=== PATIENT | male | born 1960 | race Caucasian/White ===

== ENCOUNTER 2022-04-13 17:52 | Emergency (ER) | payer MEDICARE, SELFPAY ==
[2022-04-13 17:52] VITALS: BP 114/58; PULSE 60; RESP 18; TEMP 37.3; O2SAT 97; BMI 26.5
--- NOTE | 2022-04-13 18:17 | PC.NURSE ---
ROUNDED ON PT, NO NEEDS AT THIS TIME. UPDATED ON POC
[2022-04-13 18:22] LABS: Coronavirus 19, PCR Not Detected (NotDetected); Influenza B, PCR Not Detected (NotDetected)
[2022-04-13 18:30] VITALS: BP 105/63; PULSE 60; O2SAT 96
--- NOTE | 2022-04-13 19:21 | PC.NURSE ---
Called [facility] to have them send a ride for pt. They advised they had no one there but they would try to call [facility]. She advised she would call back.
--- NOTE | 2022-04-13 19:31 | HMH.EDGENADL ---
Discharge Plan Disposition Patient Disposition: Home, Self-Care Condition: Good Referrals Follow up/Referrals: Kar Feliciano MD [Primary Care Provider] - See instructions Activity Restrictions/Add. Instructions Additional Instructions/Restrictions: Please follow up with your primary care physician in 1-2 days for further management. You will be called with results from your viral panel. Regardless please take tylenol and ibuprofen for pain control and drink plenty of water. Return if difficulty breathing or any other concerns. Clinical Impressions Clinical Impression: Viral infection Instructions Patient Instructions: DI for Viral Upper Respiratory Infection -- Adult Print Language Print Language: Luxembourgish Discharge ED Provider: Marcia Schuster General Adult HPI General Chief complaint: Upper Respiratory Infection Stated complaint: flu like symptoms Time Seen by Provider: 04/13/22 18:00 Mode of Arrival: EMS Source of Information: Patient Limitations: No Limitations Description of Symptoms (Recalled from ER Triage Doc. by RN): PT REPORTS FEVER AND CONGESTION FOR 2-3 DAYS History of Present Illness HPI narrative: 61 yo male coming from [facility] with fever, non productive cough and congestion for 2-3 days. Outbreak of flu at this intermediate. Patient reports he is eating and drinking appropriately. No abdominal pain, urinary retention, dysuria, hematuria, bowel changes or other concerns. . MD complaint: cough, congestion Onset (ago): day(s) Related Data Allergies Allergy/AdvReac Type Severity Reaction Status Date / Time No Known Allergies Allergy Verified 04/13/22 17:58 [facility] Disclaimer: The information contained in this section may have been updated after the patient was seen, as this information can be updated by other users. Medical History (Updated 04/13/22 @ 19:19 by Marcia Schuster MD) Epilepsy Family History Other No significant family history Social History Smoking Status: Unknown if ever smoked alcohol intake: never current occupational status: retired Travel in the last 8 weeks: None ROS Obtained: Yes All systems reviewed & no additional complaints except as documented Physical Exam General General appearance: alert and in no apparent distress Head Head exam: atraumatic and normal inspection Eye Eye exam: Present normal appearance and EOMI ENT ENT exam: Present normal oropharynx and mucous membranes moist Neck Neck exam: Present normal inspection and full ROM Chest Chest inspection: Present normal inspection and symmetric chest wall rise Respiratory Respiratory exam: Present normal lung sounds bilaterally Cardiovascular Cardiovascular exam: Present regular rate and normal rhythm Abdominal Exam Abdominal exam: Present soft and normal bowel sounds Extremities Exam Extremities exam: Present normal inspection and full ROM Back Exam Back exam: Present normal inspection and full ROM Neurological Exam Neurological exam: Present alert and oriented X3 Skin Skin exam: Present warm and normal color Medical Decision Making Medical Records Medical records reviewed: Yes I reviewed the patient's medical records. David Inquiry Pt receiving controlled substance: No Vital Signs: 04/13/22 17:52 04/13/22 18:30 04/13/22 19:36 Temperature 99.1 F Temperature Source Oral Pulse Rate 60 Pulse Rate [Radial] 60 Respiratory Rate 18 Blood Pressure 105/63 L Blood Pressure [Right Arm] 114/58 L Blood Pressure Mean [Right Arm] 76 Blood Pressure Source [Right Arm] Automatic Cuff Blood Pressure Position [Right Arm] Sitting 02 Sat by Pulse Oximetry 97 96 Oxygen Delivery Method Room Air Room Air 04/13/22 19:36 Temperature 99.0 F Temperature Source Pulse Rate 62 Pulse Rate [Radial] Respiratory Rate 20 Blood Pressure 110/75 Blood Pressure [Right Arm]
[2022-04-13 19:36] VITALS: BP 110/75; PULSE 62; RESP 20; TEMP 37.2; O2SAT 98
[2022-04-13 19:51] LABS: Influenza A, PCR Detected (NotDetected)
== END 2022-04-13 19:45 | disposition home or self-care (01) ==
PROVIDERS: Emergency Provider Student in an Organized Health Care Education/Training Program; PCP Emergency Medicine
DX: R50.9 Fever, unspecified (principal); R09.89 Other specified symptoms and signs involving the circulatory and respiratory systems
CPT/HCPCS: 99282; C9803; U0003; U0005

== ENCOUNTER 2022-05-10 15:28 | Emergency (ER) | payer MEDICARE, SELFPAY ==
[2022-05-10 15:31] VITALS: BP 104/62; PULSE 73; RESP 18; TEMP 36.6; O2SAT 100; BMI 29.0
--- NOTE | 2022-05-10 15:39 | HMH.EDGENADL ---
Discharge Plan Disposition Patient Disposition: Home, Self-Care Condition: Good Activity Restrictions/Add. Instructions Additional Instructions/Restrictions: Follow-up with your primary care physician as soon as possible Clinical Impressions Clinical Impression: Anxiety Instructions Patient Instructions: DI for Anxiety -- Adult, Anxiety Disorders Discharge ED Provider: Tra Avina Adult HPI General Stated complaint: nervousness Time Seen by Provider: 05/10/22 15:33 History of Present Illness HPI narrative: 61-year-old male denies any significant past medical history, presents with feeling of anxiety, states it feels like tingling in his chest and down both arms. He states the symptoms of been ongoing for about 2 months ever since he moved into [facility]. He states has been worse over the past 2 to 3 days. He denies any known triggers for the symptoms. Denies shortness of breath, nausea, vomiting, diaphoresis. And has no known cardiac history. He is not attempted to take any medications for symptomatic relief thus far Related Data Allergies Allergy/AdvReac Type Severity Reaction Status Date / Time No Known Allergies Allergy Verified 04/13/22 17:58 [facility] Disclaimer: The information contained in this section may have been updated after the patient was seen, as this information can be updated by other users. Medical History Epilepsy Family History Other No significant family history Social History Smoking Status: Unknown if ever smoked alcohol intake: never current occupational status: retired Travel in the last 8 weeks: None ROS Obtained: Yes Systems reviewed as appropriate & no additional complaints except as documented Constitutional Constitutional: Reports system reviewed and no additional complaints, except as documented Eyes Eyes: Reports system reviewed and no additional complaints, except as documented ENT Ears, Nose, Mouth, and Throat: Reports system reviewed and no additional complaints, except as documented Cardiovascular Cardiovascular: Reports system reviewed and no additional complaints, except as documented Respiratory Respiratory: Reports system reviewed and no additional complaints, except as documented Gastrointestinal Gastrointestingal: Reports system reviewed and no additional complaints, except as documented Genitourinary Male Genitourinary: Reports system reviewed and no additional complaints, except as documented Musculoskeletal Musculoskeletal: Reports system reviewed and no additional complaints, except as documented Integumentary/Breasts Skin/Breast: Reports system reviewed and no additional complaints, except as documented Neurologic Neurologic: Reports system reviewed and no additional complaints, except as documented Endocrine Endocrine: Reports system reviewed and no additional complaints, except as documented Hematologic/Lymphatic Henatologic/Lymphatic: Reports system reviewed and no additional complaints, except as documented Allergic/Immunologic Allergic/Immunologic: Reports system reviewed and no additional complaints, except as documented Physical Exam General General appearance: alert and in no apparent distress Head Head exam: atraumatic, normocephalic and normal inspection Eye Eye exam: Present normal appearance, PERRL and EOMI ENT ENT exam: Present normal exam, normal oropharynx, mucous membranes moist, TM's normal bilaterally and normal external ear exam Neck Neck exam: Present normal inspection, full ROM and trachea midline; Absent meningismus or lymphadenopathy Chest Chest inspection: Present normal inspection and symmetric chest wall rise; Absent tenderness Respiratory Respiratory exam: Present normal lung sounds bilaterally; Absent respiratory distress Cardiovascular Cardiovasc
--- NOTE | 2022-05-10 15:53 | ECG_ITS ---
APPROVED REPORT Exam: Resting ECG HR:48 bpm ECG Measurements Heart Rate 48 AXES UT 155 P 75 QRSd 94 QRS -61 QT 434 T 53 QTc 399 Conclusion SINUS BRADYCARDIA LEFT AXIS DEVIATION [QRS AXIS < -30] LOW QRS VOLTAGE IN EXTREMITY LEADS [QRS DEFLECTION < 0.5 mV IN LIMB LEADS] PATTERN CONSISTENT WITH PULMONARY DISEASE ABNORMAL ECG UNCONFIRMED REPORT Electronically signed by : Devan Mathias MD 05/12/2022 20:04:04
--- NOTE | 2022-05-10 16:48 | PC.NURSE ---
called [facility] after 3 attempts to contact [facility], they are going to contact them for pt transport.
--- NOTE | 2022-05-10 17:23 | PC.NURSE ---
notified [facility] staff pt is ready for d/c
[2022-05-10 19:15] VITALS: BP 110/65; PULSE 70; RESP 18; TEMP 36.6; O2SAT 100
== END 2022-05-10 19:15 | disposition home or self-care (01) ==
PROVIDERS: Emergency Provider Emergency Medicine
DX: F41.9 Anxiety disorder, unspecified (principal); G40.909 Epilepsy, unspecified, not intractable, without status epilepticus; R45.0 Nervousness; F17.210 Nicotine dependence, cigarettes, uncomplicated
CPT/HCPCS: 93005; 99283; 99284

== ENCOUNTER 2023-06-05 09:26 | Emergency (ER) | payer MEDICARE, SELFPAY ==
[2023-06-05 09:26] VITALS: BP 133/98; PULSE 48; RESP 16; TEMP 36.7; O2SAT 97; BMI 25.1
[2023-06-05 09:40] VITALS: BP 97/59; PULSE 47; RESP 20; O2SAT 98
--- NOTE | 2023-06-05 09:43 | PC.NURSE ---
bed bug noted on pt shirt, sent to lab for confirmation, pt changed into a hospital gown, bedding changed, pt clothing placed in a separate bag from hospital linens and placed out side, EVS aware. Pt given fresh warm blankets and socks
--- NOTE | 2023-06-05 09:44 | ED_ITS ---
Discharge Plan Disposition Patient Disposition: Home, Self-Care Activity Restrictions/Add. Instructions Additional Instructions/Restrictions: Stitches will dissolve in 7 to 10 days. Call your family doctor to establish care for this visit to the emergency department and schedule follow-up within 48 hours to ensure improvement. If you have any worsening of your condition or any other concerning signs or symptoms, return to the emergency department or your primary care doctor for further evaluation. Clinical Impressions Clinical Impression: Fall Laceration of scalp Qualifiers: Encounter type: initial encounter Qualified Code(s): S01.01XA - Laceration without foreign body of scalp, initial encounter Discharge ED Provider: Gonzalez Narvaez General Adult HPI General Chief complaint: Fall Stated complaint: fall Time Seen by Provider: 06/05/23 09:34 Mode of Arrival: EMS Source of Information: Patient Limitations: No Limitations Description of Symptoms (Recalled from ER Triage Doc. by RN): EMS reports the patient slipped in spilled coffee and fell hitting his head. No LOC. Small laceration noted to the right side of head. Also complains of right shoulder pain. History of Present Illness HPI narrative: 62-year-old male history of anxiety fall. Patient states that he slipped in coffee just prior to arrival on hit his head on the floor. Floor is essentially negative tile. No loss of conscious. Patient has a small laceration on the right/back side of his head. No complaints of pain in his head, neck, or any neurologic complaints. Patient is not on anticoagulation Related Data Allergies Allergy/AdvReac Type Severity Reaction Status Date / Time No Known Allergies Allergy Verified 04/13/22 17:58 [facility] Disclaimer: The information contained in this section may have been updated after the patient was seen, as this information can be updated by other users. Medical History Epilepsy Family History Other No significant family history Social History Smoking Status: Unknown if ever smoked alcohol intake: never current occupational status: retired Travel in the last 8 weeks: None ROS Obtained: Yes All systems reviewed & no additional complaints except as documented Physical Exam General General appearance: alert and in no apparent distress Head Head exam: normocephalic and other (1 cm linear laceration overlying occipitoparietal aspect of right side of scalp.) Eye Eye exam: Present normal appearance, PERRL and EOMI ENT ENT exam: Present mucous membranes moist Neck Neck exam: Present normal inspection, full ROM and trachea midline Respiratory Respiratory exam: Absent respiratory distress, wheezes, stridor, accessory muscle use or prolonged expiratory phase Cardiovascular Cardiovascular exam: Present normal rhythm Abdominal Exam Abdominal exam: Present soft; Absent distention, tenderness, guarding, rebound or rigidity Extremities Exam Extremities exam: Absent edema Neurological Exam Neurological exam: Present alert, oriented X3, CN II-XII intact and normal gait; Absent motor sensory deficit Skin Skin exam: Present warm and dry; Absent diaphoresis or erythema Medical Decision Making Medical Records Medical records reviewed: Yes I reviewed the patient's medical records. David Inquiry Pt receiving controlled substance: No David was queried for this patient: No Vital Signs: 06/05/23 09:26 06/05/23 09:40 Temperature 98.1 F Temperature Source Oral Pulse Rate 47 L Pulse Rate [Radial] 48 L Respiratory Rate 16 20 Blood Pressure 97/59 L Blood Pressure [Right Arm] 133/98 H Blood Pressure Mean 77 Blood Pressure Mean [Right Arm] 109 Blood Pressure Source [Right Arm] Automatic Cuff Blood Pressure Position [Right Arm] Sitting 02 Sat by Pulse Oximetry 97 98 Oxygen Delivery Method Room Air Orders (Tests/Meds): ED MEDICATIONS Discontinued Medications Generic Name Dose Route Start Last Admin Trade Name Freq PRN Reason Stop Dose Admin Lidocaine HCl 10 ml 06/05/23 09:43 Lidocaine 1% 10ml Mdv SQ 06/05/23 09:44 ONCE ONE Medical Decision Narrative: 62-year-old male history of anxiety fall. Patient states that he slipped in coffee just prior to arrival on hit his head on the floor. Floor is essentially negative tile. No loss of conscious. Patient has a small laceration on the right/back side of his head. No complaints of pain in his head, neck, or any neurologic complaints. Patient is not on anticoagulation. History was obtained via conversation with patient and EMS. On arrival, patient hemodynamically stable, alert, [oriented x4, ][appropriate, ]GCS [15], moving all extremities spontaneously, pupils equal and reactive to light. Full physical exam performed and significant for well-appearing male no acute distress. He does have 1 cm laceration overlying the parietal/occipital region of the right side of his head. Hemostatic. No signs of basilar or depressed skull fracture. No tenderness around the area, no cervical spine tenderness. Differential includes laceration, among others. Patient was given laceration repair after subcu lidocaine for symptomatic management[ and correction of underlying abnormalities]. Imaging of the head and neck was considered, but patient is neurologically intact without complaints and nontender on my exam. Patient is [place] CT head negative and Nexus negative for CT head and C-spine imaging. Given patient presentation, workup, history, this most likely represents uncomplicated laceration of the head. Because patient at baseline without signs or symptoms of clinical decompensation, deemed appropriate for discharge. Results were relayed to patient who voiced understanding and were agreeable to outpatient management and follow up. At the time of discharge the patient was hemodynamically stable, tolerating PO, and mobilizing appropriately. Procedures Laceration Laceration 1: Site: scalp Side (If applicable): right Size (cm): 1 Description: linear Depth: simple, single layer Local Anesthetic: lidocaine 1% Amount of anesthesia used (mL): 5 Pre-repair: irrigated extensively Skin layer closed with: vicryl and other Size (cm): 3-0 Number of sutures: 3 Technique: simple, interrupted Critical Care Critical Care Time Critical Care Time: No
[2023-06-05] MEDS: LIDOCAINE 1% 10ML MDV 10 ML SQ (10:47)
[2023-06-05 10:51] VITALS: BP 97/59; PULSE 47; RESP 16; TEMP 36.7; O2SAT 98
== END 2023-06-05 10:57 | disposition home or self-care (01) ==
PROVIDERS: Emergency Provider Emergency Medicine; PCP Nurse Practitioner Acute Care
DX: S01.01XA Laceration without foreign body of scalp, initial encounter (principal); G40.909 Epilepsy, unspecified, not intractable, without status epilepticus; W01.0XXA Fall on same level from slipping, tripping and stumbling without subsequent striking against object, initial encounter
CPT/HCPCS: 12001; 99283

== ENCOUNTER 2023-07-01 21:59 | Emergency (ER) | payer MEDICARE, SELFPAY ==
[2023-07-01] VITALS (7 sets, daily range): BP systolic 77–103; BP diastolic 49–64; PULSE 49–79; RESP 18; TEMP 36.9–37.1; O2SAT 96–100; BMI 26.5
--- NOTE | 2023-07-01 21:22 | PC.NURSE ---
md aware patient is in room. will assess as soon as possible.
--- NOTE | 2023-07-01 21:52 | PC.NURSE ---
waiting on provider assessment prior to interventions.
--- NOTE | 2023-07-01 22:15 | ED_ITS ---
I was consulted by the MONISHA and we discussed the complexity of the problems being addressed. I approved the treatment and management plan for this patient's care in the emergency department, thus performing a substantive portion of the medical decision making. Signed, Verena Bueno MD Discharge Plan Disposition Chief Complaint: Fall Referrals Follow up/Referrals: Karl Lynch APRN [Primary Care Provider] - See instructions Discharge ED Provider: Verena Bueno General Adult HPI General Chief complaint: Fall Stated complaint: laceration Time Seen by Provider: 07/01/23 22:15 Mode of Arrival: EMS Source of Information: Patient and EMS Limitations: No Limitations Description of Symptoms (Recalled from ER Triage Doc. by RN): patient had unwittnessed fall; states he was dizzy. States did not lose conciousness but not sure if he hit head on floor or door frame. small cut to right upper eye lid. History of Present Illness HPI narrative: Patient is a 62-year-old male [facility] an unwitnessed [facility]. Patient states that he felt dizzy fell and striking the ground with his head. He did not lose consciousness. He reports pain above his right lateral thigh however denies loss of consciousness change in vision change in smell chest pain fever chills hemoptysis hematochezia melena nausea vomiting diarrhea. Visual changes. Related Data Allergies Allergy/AdvReac Type Severity Reaction Status Date / Time No Known Allergies Allergy Verified 04/13/22 17:58 [facility] Disclaimer: The information contained in this section may have been updated after the patient was seen, as this information can be updated by other users. Medical History Epilepsy Family History Other No significant family history Social History Smoking Status: Never smoker alcohol intake: never current occupational status: retired Travel in the last 8 weeks: None ROS Obtained: Yes Systems reviewed as appropriate & no additional complaints except as documented Physical Exam General General appearance: alert and in no apparent distress Head Head exam: atraumatic and normal inspection Eye Eye exam: Present normal appearance, PERRL and EOMI ENT ENT exam: Present normal exam, normal oropharynx and mucous membranes moist Neck Neck exam: Present normal inspection, full ROM and trachea midline; Absent lymphadenopathy Chest Chest inspection: Present normal inspection and symmetric chest wall rise Respiratory Respiratory exam: Present normal lung sounds bilaterally; Absent accessory muscle use Cardiovascular Cardiovascular exam: Present regular rate, normal rhythm, normal heart sounds, +S1 and +S2 Abdominal Exam Abdominal exam: Present soft and normal bowel sounds; Absent tenderness, guarding or rebound Extremities Exam Extremities exam: Present normal inspection and full ROM Neurological Exam Neurological exam: Present alert, oriented X3 and CN II-XII intact Psychiatric Psychiatric exam: Present normal affect and normal mood Skin Skin exam: Present warm, dry and normal color Lymphatic Lymphatic Findings: no adenopathy Medical Decision Making Medical Records Medical records reviewed: Yes I reviewed the patient's medical records. David Inquiry Pt receiving controlled substance: No Vital Signs: 07/01/23 21:01 07/01/23 21:30 07/01/23 22:00 Temperature 98.5 F Temperature Source Oral Pulse Rate 61 52 L Pulse Rate [Right] 79 Respiratory Rate 18 Blood Pressure 85/52 L 77/49 L Blood Pressure [Right Arm] 96/59 L Blood Pressure Mean [Right Arm] 71 Blood Pressure Source [Right Arm] Automatic Cuff Blood Pressure Position [Right Arm] Supine 02 Sat by Pulse Oximetry 100 96 96 Oxygen Delivery Method Room Air 07/01/23 22:06 Temperature Temperature Source Pulse Rate 56 L Pulse Rate [Right] Respiratory Rate Blood Pressure 82/54 L Blood Pressure [Right Arm] Blood Pressure Mean [Right Arm] Blood Pressure Source [Right Arm] Blood Pressure Position [Right Arm] 02 Sat by Pulse Oximetry 96 Oxygen Delivery Method Lab Data Lab results reviewed: Yes I reviewed the patient's lab results. Lab Results 07/01/23 23:00: WBC 5.2, RBC 4.05 L, Hgb 14.6, Hct 45.4, MCV 112.2 H, MCH 36.0 H , MCHC 32.1, RDW 13.6, Plt Count 99 L, MPV 9.7, Neut % (Auto) 27.3 L, Lymph % (Auto) 52.4 H, [place] % (Auto) 8.5, Eos % (Auto) 11.4, Baso % (Auto) 0.3, Neut # (Auto) 1.4 L, Lymph # (Auto) 2.7, [place] # (Auto) 0.4, Eos # (Auto) 0.6 H, Baso # (Auto) 0.0, Sodium 137, Potassium 4.2, Chloride 103, Carbon Dioxide 31 H, Anion Gap 7.2, BUN 11, Creatinine 0.70, Estimated Creat Clear 92, Estimated GFR 115, Est GFR ( Amer) 139, Glucose 97, Calcium 8.3 L, Total Bilirubin 0.5, AST 44, ALT 31, Alkaline Phosphatase 62, Total Protein 6.1 L, Albumin 3.1 L, Globulin 3.0, Albumin/Globulin Ratio 1.0 L 07/01/23 23:00 07/01/23 23:00 Orders (Tests/Meds): ED MEDICATIONS Discontinued Medications Generic Name Dose Route Start Last Admin Trade Name Freq PRN Reason Stop Dose Admin Tetanus/Reduced Diphtheria/Acell Pertussis 0.5 ml 07/01/23 22:20 07/01/23 22:49 Tet/Diphth/Pert-Adult 0.5ml Syringe IM 07/01/23 22:21 0.5 ml .ONCE ONE Administration ORDERS Category Date Time Status CT angio abdomen pelvis Stat Cat Scan 07/01/23 22:[address] cervical spine wo con Stat Cat Scan 07/01/23 22:[address] head/brain wo con Stat Cat Scan 07/01/23 22:[address] lumbar spine wo con Stat Cat Scan 07/01/23 22:[address] thoracic spine wo con Stat Cat Scan 07/01/23 22:20 Completed CTA Chest [CT angio chest - dissection] Stat Cat Scan 07/01/23 22:52 Ordered CBC w/Auto Diff [Complete Blood Count Auto Diff] Stat Lab 07/01/23 23:00 Results CMP [Comprehensive Metabolic Panel] Stat Lab 07/01/23 23:00 Results D-Dimer Stat Lab 07/01/23 22:25 Received Troponin I Q3H Lab 07/02/23 01:30 Ordered Troponin I Q3H Lab 07/02/23 04:30 Ordered Troponin I Stat Lab 07/01/23 23:00 Results Medical Decision Narrative: In summary patient is a 62-year-old male who presents to the emergency department for evaluation of unwitnessed fall. Patient is patient arrives hy potensive but with a normal heart rate and otherwise hemodynamically stable upon arrival, afebrile. Physical exam only significant for a proximately 1 to 1-1/2 cm laceration at the lateral aspect of the right eyebrow. Patient has no tenderness to any areas of palpation including CT and L-spine. Patient has no deformities or tenderness to palpation elsewhere in the cranium. Patient has normal heart rate and normal heart sounds to auscultation. His GCS is actually 14 because he is uncertain to events that might have caused his fall. Differential diagnosis includes cardiogenic syncope neurogenic syncope ACS stroke dissection PE. Initial workup will be conducted with hematologic labs and imaging. Initial interventions include fluid bolus and glue repair of his eyebrow laceration. Remainder of workup pending at the time of transfer to Dr. Cabrera at 2300 Critical Care Critical Care Time Critical Care Time: No
--- NOTE | 2023-07-01 22:20 | CT_ITS ---
PROCEDURE INFORMATION: Exam: CT Head Without Contrast Exam date and time: 07/01/2023 10:32 PM Age: 62 years old Clinical indication: Injury or trauma; Laceration and other: Fall; Without residual foreign body; Eye; Right TECHNIQUE: Imaging protocol: Computed tomography of the head without contrast. Radiation optimization: All CT scans at this facility use at least one of these dose optimization techniques: automated exposure control; mA and/or kV adjustment per patient size (includes targeted exams where dose is matched to clinical indication); or iterative reconstruction. COMPARISON: No relevant prior studies available. FINDINGS: Brain: No evidence for intracranial hemorrhage, mass lesions or acute stroke. Intracranial vascular calcifications. Mild small vessel ischemic change in the periventricular white matter. Cerebral ventricles: Mild ventricular prominence. Pituitary gland and sella: Negative Paranasal sinuses: Partial opacification ethmoid air cells. Mastoid air cells: Visualized mastoid air cells are well aerated. Orbital cavities: No evidence for orbital injury. Parotid and submandibular glands: Negative Bones/joints: Unremarkable. No acute fracture. Soft tissues: Unremarkable. Vasculature: Negative. Other findings: Mild generalized atrophy. IMPRESSION: 1. No evidence for intracranial hemorrhage, mass lesions or acute stroke. 2. Intracranial vascular calcifications. 3. Mild generalized atrophy. 4. Mild small vessel ischemic change in the periventricular white matter. 5. Mild ventricular prominence. 6. Partial opacification ethmoid air cells. 7. No evidence for orbital injury.
--- NOTE | 2023-07-01 22:20 | CT_ITS ---
PROCEDURE INFORMATION: Exam: CT Lumbar Spine Without Contrast Exam date and time: 07/01/2023 10:38 PM Age: 62 years old Clinical indication: Injury or trauma; Fall TECHNIQUE: Imaging protocol: Computed tomography of the lumbar spine without contrast. Radiation optimization: All CT scans at this facility use at least one of these dose optimization techniques: automated exposure control; mA and/or kV adjustment per patient size (includes targeted exams where dose is matched to clinical indication); or iterative reconstruction. COMPARISON: CT THORACIC SPINE WO CON 01/07/2023 22:36 FINDINGS: Bones/joints: Chronic T12 superior endplate deformity. Urinary bladder: Nonspecific urinary bladder wall thickening. Vasculature: The arteries demonstrate moderate atherosclerotic disease. Soft tissues: Unremarkable. IMPRESSION: 1. No acute fracture or malalignment of the lumbar spine. 2. Nonspecific urinary bladder wall thickening. Please exclude infection.
--- NOTE | 2023-07-01 22:20 | CT_ITS ---
PROCEDURE INFORMATION: Exam: CT Thoracic Spine Without Contrast Exam date and time: 07/01/2023 10:36 PM Age: 62 years old Clinical indication: Injury or trauma; Fall TECHNIQUE: Imaging protocol: Computed tomography of the thoracic spine without contrast. Radiation optimization: All CT scans at this facility use at least one of these dose optimization techniques: automated exposure control; mA and/or kV adjustment per patient size (includes targeted exams where dose is matched to clinical indication); or iterative reconstruction. COMPARISON: CT CERVICAL SPINE WO CON 01/07/2023 22:34 FINDINGS: Bones/joints: No acute fracture. Normal alignment. No significant disc bulge or herniation. No severe spinal canal stenosis. No significant neural foraminal narrowing. Soft tissues: Unremarkable. Vasculature: Coronary artery calcifications. The aorta demonstrates mild atherosclerotic disease. Lungs: Mild posterior atelectasis. Heart: Mitral valve calcifications. Liver: Low attenuation hepatic lesions measuring up to 2.5 cm in diameter are incompletely characterized, but are likely cysts. No followup imaging is recommended. IMPRESSION: No acute fracture or malalignment of the thoracic spine.
--- NOTE | 2023-07-01 22:20 | CT_ITS ---
PROCEDURE INFORMATION: Exam: CT Cervical Spine Without Contrast Exam date and time: 07/01/2023 10:34 PM Age: 62 years old Clinical indication: Injury or trauma; Fall TECHNIQUE: Imaging protocol: Computed tomography of the cervical spine without contrast. Radiation optimization: All CT scans at this facility use at least one of these dose optimization techniques: automated exposure control; mA and/or kV adjustment per patient size (includes targeted exams where dose is matched to clinical indication); or iterative reconstruction. COMPARISON: CT HEAD/BRAIN WO CON 07/01/2023 10:32 PM FINDINGS: Bones/joints: Mild dorsal kyphosis. No fracture or bone destruction. Multilevel degenerative disc disease most significant at C5-C6 and C6-C7 levels with disc space narrowing and small posterior projecting disc osteophyte complexes. Moderate to severe multilevel facet arthropathy. Severe right foraminal narrowing at C5-C6 due to uncovertebral joint hypertrophy axial image 3/. Brain: Intracranial vascular calcifications. Lungs: Lung apices are normal. Soft tissues: Unremarkable. IMPRESSION: 1. Mild dorsal kyphosis. 2. No fracture or bone destruction. 3. Multilevel degenerative disc disease most significant at C5-C6 and C6-C7 levels with disc space narrowing and small posterior projecting disc osteophyte complexes. Moderate to severe multilevel facet arthropathy. 4. Severe right foraminal narrowing at C5-C6 due to uncovertebral joint hypertrophy axial image 3/63. 5. Intracranial vascular calcifications.
--- NOTE | 2023-07-01 22:20 | PC.NURSE ---
[facility]
--- NOTE | 2023-07-01 22:38 | PC.NURSE ---
patient in CT at this time.
--- NOTE | 2023-07-01 22:46 | ECG_ITS ---
APPROVED REPORT Exam: Resting ECG HR:47 bpm ECG Measurements Heart Rate 47 AXES NV 150 P 76 QRSd 89 QRS -60 QT 449 T 67 QTc 412 Conclusion SINUS BRADYCARDIA LEFT AXIS DEVIATION [QRS AXIS < -30] LOW QRS VOLTAGE [QRS DEFLECTION < 0.5/1.0 mV IN LIMB/CHEST LEADS] PATTERN CONSISTENT WITH PULMONARY DISEASE SEPTAL MYOCARDIAL INFARCTION , PROBABLY OLD [40+ ms Q WAVE IN V1/V2] ABNORMAL ECG UNCONFIRMED REPORT Electronically signed by : Devan Mathias MD 07/02/2023 16:33:41
[2023-07-01] MEDS: TET/DIPHTH/PERT-ADULT 0.5ML SYRINGE 0.5 ML IM (22:49)
[2023-07-01 23:08] LABS: Basophils % 0.3 % (0.1-2.0); Eosinophils # 0.6 K/mm3 (0.0-0.4); Eosinophils % 11.4 % (0.1-12.0); Hematocrit 45.4 % (42.0-52.0); Hemoglobin 14.6 g/dL (14.1-18.0); Lymphocytes # 2.7 K/mm3 (0.7-4.5); Lymphocytes % 52.4 % (10-50); Mean Corpuscular HGB Conc 32.1 g/dL (31.8-35.4); Mean Corpuscular Volume 112.2 fl (80-94); Mean Platelet Volume 9.7 fl (7.4-10.4); Monocytes # 0.4 K/mm3 (0.1-1.0); Monocytes % 8.5 % (1.7-9.3); Neutrophils # 1.4 K/mm3 (1.8-7.8); Neutrophils % 27.3 % (37.0-80.0); Platelet Count 99 K/mm3 (142-424); Red Blood Count 4.05 M/mm3 (4.60-6.20); Red Cell Distribution Width 13.6 % (11.5-17.5); White Blood Count 5.2 K/mm3 (4.8-10.8)
[2023-07-01 23:12] LABS: MANUAL DIFFERENTIAL MANUAL DIFFERENTIAL (MANUAL DIFF)
[2023-07-01 23:22] LABS: Alanine Aminotransferase 31 U/L (12-78); Albumin Level 3.1 g/dl (3.5-5.0); Alkaline Phosphatase 62 U/L (38-126); Anion Gap 7.2 mEq/L (5-15); Aspartate Amino Transferase 44 U/L (17-59); Bilirubin,Total 0.5 mg/dl (0.2-1.3); Blood Urea Nitrogen 11 mg/dl (9-20); Calcium 8.3 mg/dl (8.4-10.2); Carbon Dioxide 31 mmol/L (22.0-30.0); Chloride 103 mmol/L (98-107); Creatinine Clearance Estimated 92 mL/min (50-200); Estimated Glomerular Filt Rate 115 ml/min (>60); GFR (African American) 139 ML/MIN (>60); Glucose 97 mg/dl (74-100); Potassium 4.2 mmoL/L (3.5-5.1); Sodium 137 mmol/L (136-145); Total Protein,Serum 6.1 g/dl (6.3-8.2)
[2023-07-01 23:27] LABS: D-Dimer 0.35 ug/mL (0.0-0.5)
[2023-07-01 23:33] LABS: Eosinophils % 13 % (0-3); Lymphocytes % 57 % (10-50); Macrocytosis 2+; Monocytes % 5 % (2-9); Neutrophils % 23 % (42-76); Platelet Estimate Moderate Decrease; Total Cells Counted 100
[2023-07-01 23:37] LABS: Troponin I < 0.01 ng/ml (0.00-0.034)
--- NOTE | 2023-07-01 23:48 | PC.NURSE ---
Patient up to side of bed felt dizzy; stayed seated until dizziness passed; then stood up denies dizziness; walked around ED x 1 lap; stating he felt a little unsteady but not dizzy. Provider notified.
--- NOTE | 2023-07-02 | PC.NURSE ---
discussed follow up with linnette at [facility]. edited dc instructions for [facility] management to contact dr arroyo's office for appt as suggested by ED physician.
--- NOTE | 2023-07-02 00:04 | HMH.EDGENADL ---
Discharge Plan Disposition Patient Disposition: Home, Self-Care Condition: Good Prescriptions Prescriptions: No Action thiamine HCl (vitamin B1) [Vitamin B-1] 100 mg Tablet 100 mg PO DAILY hydroxyzine pamoate 50 mg capsule 50 mg PO HS melatonin 3 mg Tablet 3 mg PO HS risperidone 2 mg tablet 2 mg PO BID divalproex 500 mg tablet extended release 24 hr 500 mg PO BID Referrals Follow up/Referrals: Karl Lynch APRN [Primary Care Provider] - See instructions Jose Fall MD [Staff Physician] - See instructions Activity Restrictions/Add. Instructions Additional Instructions/Restrictions: An appointment needs to be made with Dr Fall's office here at the hospital for evaluation for the symptoms you have had here. Also, [facility] management: please follow-up with your primary care provider and make sure they are aware of need for evaluation. Please return to the emergency department if you develop any new or worsening symptoms or become concerned for your health. You had absorbable sutures placed. They should dissolve/resorb on their own in the next week or 2. Please follow wound care instructions as discussed. Monitor for signs of infection. Clinical Impressions Clinical Impression: Bradycardia Fall Qualifiers: Encounter type: initial encounter Qualified Code(s): W19.XXXA - Unspecified fall, initial encounter Laceration of face Qualifiers: Encounter type: initial encounter Qualified Code(s): S01.81XA - Laceration without foreign body of other part of head, initial encounter Discharge ED Provider: Verena Bueno General Adult HPI General Chief complaint: Fall Stated complaint: laceration Time Seen by Provider: 07/01/23 22:15 Mode of Arrival: EMS Source of Information: Patient and EMS Limitations: No Limitations Description of Symptoms (Recalled from ER Triage Doc. by RN): patient had unwittnessed fall; states he was dizzy. States did not lose conciousness but not sure if he hit head on floor or door frame. small cut to right upper eye lid. Related Data Home Medications Medication Instructions Recorded Confirmed divalproex 500 mg tablet,extended 500 mg PO BID 07/01/23 07/01/23 release 24 hr hydroxyzine pamoate 50 mg capsule 50 mg PO HS 07/01/23 07/01/23 melatonin 3 mg tablet 3 mg PO HS 07/01/23 07/01/23 risperidone 2 mg tablet 2 mg PO BID 07/01/23 07/01/23 thiamine HCl (vitamin B1) 100 mg 100 mg PO DAILY 07/01/23 07/01/23 tablet (Vitamin B-1) Allergies Allergy/AdvReac Type Severity Reaction Status Date / Time No Known Allergies Allergy Verified 04/13/22 17:58 [facility] Disclaimer: The information contained in this section may have been updated after the patient was seen, as this information can be updated by other users. Medical History Epilepsy Family History Other No significant family history Social History Smoking Status: Never smoker alcohol intake: never current occupational status: retired Travel in the last 8 weeks: None Physical Exam General General appearance: alert and in no apparent distress Medical Decision Making David Inquiry Pt receiving controlled substance: No David was queried for this patient: No Vital Signs: 07/01/23 21:01 07/01/23 21:30 07/01/23 22:00 Temperature 98.5 F Temperature Source Oral Pulse Rate 61 52 L Pulse Rate [Right] 79 Respiratory Rate 18 Blood Pressure 85/52 L 77/49 L Blood Pressure [Right Arm] 96/59 L Blood Pressure Mean [Right Arm] 71 Blood Pressure Source Blood Pressure Source [Right Arm] Automatic Cuff Blood Pressure Position Blood Pressure Position [Right Arm] Supine 02 Sat by Pulse Oximetry 100 96 96 Oxygen Delivery Method Room Air 07/01/23 22:06 07/01/23 22:18 07/01/23 23:33 Temperature Temperature Source Pulse Rate 56 L 54 L 49 L Pulse Rate [Right] Respiratory Rate Blood Pressure 82/54 L 97/56 L 102/63 L Blood Pressure [Right Arm] Blood Pressure Mean [Right Arm] Blood Pressure Source Blood Pressure Source [Right Arm] Blood Pressure Position Blood Pressure Position [Right Arm] 02 Sat by Pulse Oximetry 96 97 96 Oxygen Delivery Method 07/01/23 23:54 Temperature 98.7 F Temperature Source Oral Pulse Rate 55 L Pulse Rate [Right] Respiratory Rate 18 Blood Pressure 103/64 L Blood Pressure [Right Arm] Blood Pressure Mean [Right Arm] Blood Pressure Source Automatic Cuff Blood Pressure Source [Right Arm] Blood Pressure Position Supine Blood Pressure Position [Right Arm] 02 Sat by Pulse Oximetry Oxygen Delivery Method Room Air Lab Data Lab Results 07/01/23 23:00: WBC 5.2, RBC 4.05 L, Hgb 14.6, Hct 45.4, MCV 112.2 H, MCH 36.0 H, MCHC 32.1, RDW 13.6, Plt Count 99 L, MPV 9.7, Neut % (Auto) 27.3 L, Lymph % (Auto) 52.4 H, [place] % (Auto) 8.5, Eos % (Auto) 11.4, Baso % (Auto) 0.3, Neut # (Auto) 1.4 L, Lymph # (Auto) 2.7, [place] # (Auto) 0.4, Eos # (Auto) 0.6 H, Baso # (Auto) 0.0, Total Counted 100, Neutrophils % (Manual) 23 L, Band Neutrophils % 2.0, Lymphocytes % (Manual) 57 H, Monocytes % (Manual) 5, Eosinophils % (Manual) 13 H, Platelet Estimate Moderate decrease, Macrocytosis 2+, D-Dimer 0.35, Sodium 137, Potassium 4.2, Chloride 103, Carbon Dioxide 31 H, Anion Gap 7.2, BUN 11, Creatinine 0.70, Estimated Creat Clear 92, Estimated GFR 115, Est GFR ( Amer) 139, Glucose 97, Calcium 8.3 L, Total Bilirubin 0.5, AST 44, ALT 31, Alkaline Phosphatase 62, Troponin I < 0.01, Total Protein 6.1 L, Albumin 3.1 L, Globulin 3.0, Albumin/Globulin Ratio 1.0 L 07/01/23 23:00 07/01/23 23:00 Orders (Tests/Meds): ED MEDICATIONS Discontinued Medications Generic Name Dose Route Start Last Admin Trade Name Freq PRN Reason Stop Dose Admin Tetanus/Reduced Diphtheria/Acell Pertussis 0.5 ml 07/01/23 22:20 07/01/23 22:49 Tet/Diphth/Pert-Adult 0.5ml Syringe IM 07/01/23 22:21 0.5 ml .ONCE ONE Administration ORDERS Category Date Time Status CT cervical spine wo con Stat Cat Scan 07/01/23 22:[address] head/brain wo con Stat Cat Scan 07/01/23 22:[address] lumbar spine wo con Stat Cat Scan 07/01/23 22:[address] thoracic spine wo con Stat Cat Scan 07/01/23 22:20 Completed CBC w/Auto Diff [Complete Blood Count Auto Diff] Stat Lab 07/01/23 23:00 Completed CMP [Comprehensive Metabolic Panel] Stat Lab 07/01/23 23:00 Completed D-Dimer Stat Lab 07/01/23 23:00 Completed Troponin I Q3H Lab 07/02/23 01:30 Ordered Troponin I Q3H Lab 07/02/23 04:30 Ordered Troponin I Stat Lab 07/01/23 23:00 Completed ECG initial [place] Routine Y 07/01/23 22:46 Completed
--- NOTE | 2023-07-02 00:07 | EXP.EVENT.NO ---
Please refer to emergency department provider note from this visit which had been signed and finalized and was unable to edit. I assumed care from the KAILEY Singh. On reassessment, patient remained stable in the emergency department and ambulated well. Laceration was repaired with absorbable sutures. 2 cm laceration was irrigated with 500 mL normal saline and repaired with two 5-0 fast gut sutures. There were no complications and patient tolerated this well. He remained stable in the emergency department and imaging showed no clinically significant injuries. Patient was appropriate for discharge back to his facility.
== END 2023-07-02 00:16 | disposition home or self-care (01) ==
PROVIDERS: Physician Assistant; Emergency Provider Emergency Medicine; PCP Nurse Practitioner Acute Care
DX: S01.111A Laceration without foreign body of right eyelid and periocular area, initial encounter (principal); R42 Dizziness and giddiness; G40.909 Epilepsy, unspecified, not intractable, without status epilepticus; W19.XXXA Unspecified fall, initial encounter
CPT/HCPCS: 12011; 70450; 72125; 72128; 72131; 80053; 84484; 85007; 85025; 85378; 90471; 90715; 93005; 99285

== ENCOUNTER 2023-11-29 18:05 | Emergency (ER) | payer MEDICARE, SELFPAY ==
[2023-11-29 18:17] VITALS: BP 123/71; PULSE 80; O2SAT 96
--- NOTE | 2023-11-29 18:22 | ECG_ITS ---
APPROVED REPORT Exam: Resting ECG HR:75 bpm ECG Measurements Heart Rate 75 AXES ND 132 P 65 QRSd 88 QRS 268 QT 270 T 46 QTc 298 Conclusion SINUS RHYTHM RIGHT AXIS DEVIATION [QRS AXIS > 100] LOW QRS VOLTAGE IN EXTREMITY LEADS [QRS DEFLECTION < 0.5 mV IN LIMB LEADS] PATTERN CONSISTENT WITH PULMONARY DISEASE MODERATE ST DEPRESSION [0.05+ mV ST DEPRESSION] ABNORMAL ECG UNCONFIRMED REPORT Electronically signed by : JERICHO LEE, 12/02/2023 06:04:31
[2023-11-29 18:26] VITALS: BP 123/71; PULSE 80; RESP 18; TEMP 37.1; O2SAT 95; BMI 23.7
--- NOTE | 2023-11-29 18:30 | ECG_ITS ---
APPROVED REPORT Exam: Resting ECG HR:62 bpm ECG Measurements Heart Rate 62 AXES NM 148 P 74 QRSd 95 QRS -45 QT 421 T 51 QTc 426 Conclusion SINUS RHYTHM LEFT AXIS DEVIATION [QRS AXIS < -30] LOW QRS VOLTAGE IN EXTREMITY LEADS [QRS DEFLECTION < 0.5 mV IN LIMB LEADS] PATTERN CONSISTENT WITH PULMONARY DISEASE ABNORMAL ECG UNCONFIRMED REPORT Electronically signed by : JERICHO LEE, 11/30/2023 00:35:43
--- NOTE | 2023-11-29 18:57 | CT_ITS ---
PROCEDURE INFORMATION: Exam: CT Head Without Contrast Exam date and time: 11/29/2023 7:10 PM Age: 63 years old Clinical indication: Altered mental status/memory loss; Additional info: Encephalopathy TECHNIQUE: Imaging protocol: Computed tomography of the head without contrast. Radiation optimization: All CT scans at this facility use at least one of these dose optimization techniques: automated exposure control; mA and/or kV adjustment per patient size (includes targeted exams where dose is matched to clinical indication); or iterative reconstruction. COMPARISON: CT HEAD/BRAIN WO CON 07/01/2023 10:32 PM FINDINGS: Brain: [id number] atrophy. No intracranial hemorrhage. No mass. Few apparent scattered subtle foci of decreased attenuation within periventricular/subcortical white matter. No definite edema. Cerebral ventricles: No hydrocephalus. Paranasal sinuses: Scattered minimal to mild mucosal thickening. Few maxillary retention cysts. Mastoid air cells: No significant effusion. Orbital cavities: Unremarkable as visualized. Bones: No acute fracture. Soft tissues: Unremarkable. IMPRESSION: Probable chronic microvascular ischemic changes. If symptoms persist, consider MRI.
--- NOTE | 2023-11-29 18:59 | ED_ITS ---
Discharge Plan Disposition Patient Disposition: Home, Self-Care Prescriptions Prescriptions: No Action thiamine HCl (vitamin B1) [Vitamin B-1] 100 mg Tablet 100 mg PO DAILY hydroxyzine pamoate 50 mg capsule 50 mg PO HS melatonin 3 mg Tablet 3 mg PO HS risperidone 2 mg tablet 2 mg PO BID divalproex 500 mg tablet extended release 24 hr 500 mg PO BID Referrals Follow up/Referrals: Karl Lynch APRN [Primary Care Provider] - See instructions Yoly Mena APRN [Nurse Practitioner] - See instructions Activity Restrictions/Add. Instructions Additional Instructions/Restrictions: At this time it was felt you are safe to be discharged home. If new or worsening symptoms please do not hesitate to return the emergency department. Please call and make an appointment with Yoly Mena as soon as you are able. Clinical Impressions Clinical Impression: Catatonia Discharge ED Provider: Jim Arteaga General Adult HPI General Chief complaint: Weakness Stated complaint: weakness Time Seen by Provider: 11/29/23 18:25 Mode of Arrival: EMS Source of Information: Patient and EMS Limitations: No Limitations Description of Symptoms (Recalled from ER Triage Doc. by RN): PER EMS GAVINO LAM CALLED OUT DUE TO THE PT ZONING OUT. EMS REPORTS THE PT IS CATATONIC. ON MY ASSESSMENT THE PT WAS SLOW TO RESPOND BUT A&OX4. PT STATES HIS ONLY COMPLAINT IS THAT HE FEELS WEAK ALL OVER. PT TOLD EMS THAT HE DOES NOT THINK HE HAS BEEN GETTING HIS MEDS ON THE REGULAR SCHEDULE. PTS BSFS IS 149. PTS NIH 0. EMS STROKE SCALE WAS ALSO 0. PTS LAST KNOWN NORM WAS 1630 History of Present Illness HPI narrative: Patient is a 63-year-old with past medical history of unknown psychiatric disorder on risperidone, seizure disorder on divalproex who presents emergency department for evaluation of encephalopathy. Limited history is provided by [facility] staff saying that he keeps zoning out and has slow movements with intermittent shaking caused him to present here for continued evaluation. Upon arrival patient was slow to answer questions however has no acute complaints. Facility was contacted that cannot provide additional history however they say that he is taking his medications. Patient denies chest pain, abdominal pain, headache, other acute complaints at this time. He has corrected vision with glasses and states that his vision is at baseline when he is not wearing them which is slightly blurry. Related Data Home Medications Medication Instructions Recorded Confirmed divalproex 500 mg tablet,extended 500 mg PO BID 07/01/23 07/01/23 release 24 hr hydroxyzine pamoate 50 mg capsule 50 mg PO HS 07/01/23 07/01/23 melatonin 3 mg tablet 3 mg PO HS 07/01/23 07/01/23 risperidone 2 mg tablet 2 mg PO BID 07/01/23 07/01/23 thiamine HCl (vitamin B1) 100 mg 100 mg PO DAILY 07/01/23 07/01/23 tablet (Vitamin B-1) Allergies Allergy/AdvReac Type Severity Reaction Status Date / Time No Known Allergies Allergy Verified 11/29/23 18:45 [facility] Disclaimer: The information contained in this section may have been updated after the patient was seen, as this information can be updated by other users. Medical History Epilepsy Family History Other No significant family history Social History Smoking Status: Unknown if ever smoked alcohol intake: never current occupational status: retired Travel in the last 8 weeks: None ROS Obtained: Yes Systems reviewed as appropriate & no additional complaints except as documented Physical Exam General General appearance: alert and in no apparent distress Head Head exam: atraumatic and normocephalic Eye Eye exam: Present PERRL and EOMI ENT ENT exam: Present mucous membranes moist Neck Neck exam: Present normal inspection Chest Chest inspection: Present normal inspection and symmetric chest wall rise Respiratory Respiratory exam: Present normal lung sounds bilaterally; Absent respiratory distress Cardiovascular Cardiovascular exam: Present regular rate and normal rhythm Abdominal Exam Abdominal exam: Present soft; Absent tenderness Extremities Exam Extremities exam: Present normal inspection Neurological Exam Neurological exam: Present alert, oriented X3 and CN II-XII intact; Absent motor sensory deficit Psychiatric Psychiatric exam: Present normal affect Skin Skin exam: Present warm and dry Medical Decision Making David Inquiry Pt receiving controlled substance: No Vital Signs: 11/29/23 18:17 11/29/23 18:26 11/29/23 19:30 Temperature 98.7 F Temperature Source Oral Pulse Rate 80 63 Pulse Rate [Left] 80 Respiratory Rate 18 16 Blood Pressure 123/71 Blood Pressure [Right Arm] 123/71 Blood Pressure Mean 88 Blood Pressure Mean [Right Arm] 88 Blood Pressure Source [Right Arm] Automatic Cuff Blood Pressure Position [Right Arm] Sitting 02 Sat by Pulse Oximetry 96 95 97 Oxygen Delivery Method Room Air Room Air Room Air 11/29/23 20:00 11/29/23 22:15 Temperature 98.2 F Temperature Source Oral Pulse Rate 76 95 H Pulse Rate [Left] Respiratory Rate 18 18 Blood Pressure 132/97 H 134/97 H Blood Pressure [Right Arm] Blood Pressure Mean 102 Blood Pressure Mean [Right Arm] Blood Pressure Source [Right Arm] Blood Pressure Position [Right Arm] 02 Sat by Pulse Oximetry 98 Oxygen Delivery Method Room Air Room Air Lab Data Lab Results 11/29/23 18:55: WBC 4.6 L, RBC 3.75 L, Hgb 14.5, Hct 40.3 L, MCV 107.3 H, MCH 38.5 H, MCHC 35.9 H, RDW 13.8, Plt Count 123 L, MPV 8.7, Neut % (Auto) 54.0, Lymph % (Auto) 32.8, [place] % (Auto) 10.2 H, Eos % (Auto) 2.0, Baso % (Auto) 0.9, Neut # (Auto) 2.5, Lymph # (Auto) 1.5, [place] # (Auto) 0.5, Eos # (Auto) 0.1, Baso # (Auto) 0.0, Sodium 141, Potassium 3.9, Chloride 109 H, Carbon Dioxide 29, Anion Gap 6.9, BUN 14, Creatinine 0.80, Estimated Creat Clear 86, Estimated GFR 98, Est GFR ( Amer) 119, Glucose 120 H, Calcium 8.9, Magnesium 2.0, Total Bilirubin 0.4, AST 37, ALT 29, Alkaline Phosphatase 72, Total Protein 6.8, Albumin 3.5, Globulin 3.3 H, Albumin/Globulin Ratio 1.1 11/29/23 21:07: Urine Color Yellow, Urine Appearance Slightly cloudy, Urine pH 7.0, Ur Specific [place] 1.015, Urine Protein Negative, Urine Glucose (UA) Negative, Urine Ketones Negative, Urine Blood Negative, Urine Nitrate Negative, Urine Bilirubin Negative, Urine Urobilinogen 1.0, Ur Leukocyte Esterase 2+ A, Urine RBC None, Urine WBC 5-10, Ur Squamous Epith Cells Occasional, Urine Bacteria Trace 11/29/23 18:55 11/29/23 18:55 Orders (Tests/Meds): ORDERS Category Date Time Status CT head/brain wo con Stat Cat Scan 11/29/23 18:57 Completed CBC w/Auto Diff [Complete Blood Count Auto Diff] Stat Lab 11/29/23 18:55 Completed CMP [Comprehensive Metabolic Panel] Stat Lab 11/29/23 18:55 Completed MG [Magnesium] Stat Lab 11/29/23 18:55 Completed UA [Urinalysis and Microscopic] Stat Lab 11/29/23 21:07 Completed Urine Culture Stat Micro 11/29/23 21:07 Received EKG Request [ECG Request] Stat Y 11/29/23 18:57 Ordered ECG Data Tracing #1: Independently inter by me rate 75, rhythm is regular, no ST elevation in anatomical contiguous leads, QTc 298. Significant chatter. Tracing #2: Independently interpreted by me rate is 62, rhythm is regular, decreased voltages, no ST elevation in anatomical contiguous leads, QTc 426. Medical Decision Narrative: In summary patient is a 63-year-old male past medical history described above who presents emergency department for evaluation of change in his behavior. Patient is hemodynamically stable nontoxic-appearing upon arrival, afebrile. Patient has schizophrenia after further review of his chart and is on antipsychotics. They self administer these at the senior living so it is unsure whether or not he is actually taking them. He is alert and oriented. He is slow to move diffusely in all his extremities however he does have 5 out of 5 strength in all extremities, no facial droop, no cerebellar signs and otherwise nonfocal neurologic exam upon my assessment. I suspect the patient has catatonia in the setting of schizophrenia. Workup screening for electrolyte abnormalities and critical metabolic derangement will be conducted with hematologic labs, large intracranial process will be screened for with noncontrasted CT scan of the head. EKG will be obtained. Initial workup reviewed by me, hematologic labs are nonactionable. No critical electrolyte abnormality or JUN, stable thrombocytopenia. Urinalysis to her by me and not consistent with infection. Noncontrasted CT scan of the head shows no acute abnormality. On repeat evaluation patient was ambulatory at bedside without dynamic neurologic deficits. Given this I think the patient has catatonia will benefit from behavioral health evaluation on outpatient basis. Critical Care Critical Care Time Critical Care Time: No
[2023-11-29 19:07] LABS: Basophils % 0.9 % (0.1-2.0); Eosinophils # 0.1 K/mm3 (0.0-0.4); Hematocrit 40.3 % (42.0-52.0); Hemoglobin 14.5 g/dL (14.1-18.0); Lymphocytes # 1.5 K/mm3 (0.7-4.5); Lymphocytes % 32.8 % (10-50); Mean Corpuscular HGB Conc 35.9 g/dL (31.8-35.4); Mean Corpuscular Hemoglobin 38.5 pg (27.0-31.2); Mean Corpuscular Volume 107.3 fl (80-94); Mean Platelet Volume 8.7 fl (7.4-10.4); Monocytes # 0.5 K/mm3 (0.1-1.0); Monocytes % 10.2 % (1.7-9.3); Neutrophils # 2.5 K/mm3 (1.8-7.8); Platelet Count 123 K/mm3 (142-424); Red Blood Count 3.75 M/mm3 (4.60-6.20); Red Cell Distribution Width 13.8 % (11.5-17.5); White Blood Count 4.6 K/mm3 (4.8-10.8)
--- NOTE | 2023-11-29 19:09 | PC.NURSE ---
pt gone to ct
[2023-11-29 19:11] LABS: Chloride 109 mmol/L (98-107); Potassium 3.9 mmoL/L (3.5-5.1); Sodium 141 mmol/L (136-145)
[2023-11-29 19:14] LABS: Alanine Aminotransferase 29 U/L (12-78); Albumin Level 3.5 g/dl (3.5-5.0); Albumin/Globulin Ratio 1.1 (1.1-1.8); Alkaline Phosphatase 72 U/L (38-126); Anion Gap 6.9 mEq/L (5-15); Aspartate Amino Transferase 37 U/L (17-59); Bilirubin,Total 0.4 mg/dl (0.2-1.3); Blood Urea Nitrogen 14 mg/dl (9-20); Calcium 8.9 mg/dl (8.4-10.2); Carbon Dioxide 29 mmol/L (22.0-30.0); Creatinine Clearance Estimated 86 mL/min (50-200); Estimated Glomerular Filt Rate 98 ml/min (>60); GFR (African American) 119 ML/MIN (>60); Globulin 3.3 g/dL (1.3-3.2); Glucose 120 mg/dl (74-100); Total Protein,Serum 6.8 g/dl (6.3-8.2)
[2023-11-29 19:30] VITALS: PULSE 63; RESP 16; O2SAT 97
[2023-11-29 20:00] VITALS: BP 132/97; PULSE 76; RESP 18; O2SAT 98
[2023-11-29 21:11] LABS: Microscopic, Urine URINE MICROSCOPIC (MICROSCOPIC)
[2023-11-29 21:13] LABS: Bilirubin,Urine Negative (Negative); Blood, Urine Negative (Negative); Color,Urine YELLOW (Yellow); Glucose,Urine (UA) Negative (Negative); Ketones,Urine Negative (Negative); Leukocyte Esterase,Urine 2+ (Negative); Nitrate,Urine Negative (Negative); Protein,Urine Negative (Negative); Specific Gravity, Urine 1.015 (1.005-1.030)
[2023-11-29 21:15] LABS: Appearance,Urine Slightly Cloudy (Clear)
--- NOTE | 2023-11-29 21:45 | PC.NURSE ---
Calling [facility] to let them know the pt is ready for d/c. No answer and will continue to call back
[2023-11-29 21:48] LABS: Bacteria,Urine Trace /lpf; Squamous Epithelial Cell,Urine Occasional #/hpf (0-5)
[2023-11-29 22:15] VITALS: BP 134/97; PULSE 95; RESP 18; TEMP 36.8; O2SAT 95
== END 2023-11-29 22:18 | disposition home or self-care (01) ==
PROVIDERS: Emergency Provider Emergency Medicine; PCP Nurse Practitioner Acute Care
DX: F06.1 Catatonic disorder due to known physiological condition (principal); F20.9 Schizophrenia, unspecified; R53.1 Weakness; B96.89 Other specified bacterial agents as the cause of diseases classified elsewhere
CPT/HCPCS: 70450; 80053; 81001; 83735; 85025; 87086; 93005; 99284

== ENCOUNTER 2023-11-30 14:20 | Observation (INO) | payer MEDICARE, SELFPAY ==
[2023-11-30] VITALS (11 sets, daily range): BP systolic 98–126; BP diastolic 55–75; PULSE 53–74; RESP 12–18; TEMP 36.6–36.8; O2SAT 96–99; BMI 23.7; BMI 20.5
--- NOTE | 2023-11-30 14:48 | ED_ITS ---
<Statement entered by Lelia Eli MD - 11/30/23 23:23> I was consulted by the MONISHA, and we discussed the complexity of the problems being addressed. I approved the treatment and management plan for this patient's care in the emergency department, thus performing a substantive portion of the medical decision making. Lelia Eli MD, YASHIRA, FACEP Discharge Plan Disposition Chief Complaint: Altered Mental Status Discharge ED Provider: Lelia Eli General Adult HPI General Chief complaint: Altered Mental Status Stated complaint: AMS Time Seen by Provider: 11/30/23 14:48 Mode of Arrival: Ambulatory Source of Information: EMS Limitations: Altered Mental Status Description of Symptoms (Recalled from ER Triage Doc. by RN): pt to the ED via EMS from [facility] with reports of AMS and decline in function. pt is alert, slow to respond and able to follow commands but wont answer questions at this time. EMS reports pt was seen in the ED recently for similar symptoms. pt currently has brown liquid on the side of his face. EMS reports [employer] staff informed them he drinks his roomates dip sip and vomited during his transportation to the ED. p History of Present Illness HPI narrative: Patient presents via EMS for reported alteration in mental status. Patient was seen in our ER yesterday evening for the exact same complaint. Unfortunately, patient has a unknown psychiatric disorder believed to be schizophrenia on risperidone, seizure disorder on divalproex. Patient was seen in our ER last evening a little over 15 hours ago for similar complaint. His workup was nonactionable including lab work urinalysis and a noncontrasted CT scan of the head. Patient has no focal neurologic deficits currently however did drink his roommate tobacco spit. Patient denies any acute complaints currently no pain. And patient was ambulatory and conversant intermittently during his stay. Related Data Home Medications Medication Instructions Recorded Confirmed divalproex 500 mg tablet,extended 500 mg PO BID 07/01/23 07/01/23 release 24 hr hydroxyzine pamoate 50 mg capsule 50 mg PO HS 07/01/23 07/01/23 melatonin 3 mg tablet 3 mg PO HS 07/01/23 07/01/23 risperidone 2 mg tablet 2 mg PO BID 07/01/23 07/01/23 thiamine HCl (vitamin B1) 100 mg 100 mg PO DAILY 07/01/23 07/01/23 tablet (Vitamin B-1) Allergies Allergy/AdvReac Type Severity Reaction Status Date / Time No Known Allergies Allergy Verified 11/29/23 18:45 [facility] Disclaimer: The information contained in this section may have been updated after the patient was seen, as this information can be updated by other users. Medical History Epilepsy Family History Other No significant family history Social History Smoking Status: Current every day smoker alcohol intake: never current occupational status: retired Travel in the last 8 weeks: None ROS Obtained: Yes Systems reviewed as appropriate & no additional complaints except as documented Physical Exam General General appearance: alert and in no apparent distress Head Head exam: atraumatic and normocephalic Eye Eye exam: Present normal appearance, PERRL and EOMI ENT ENT exam: Present normal exam and normal oropharynx Neck Neck exam: Present normal inspection Chest Chest inspection: Present normal inspection and symmetric chest wall rise Respiratory Respiratory exam: Present normal lung sounds bilaterally Cardiovascular Cardiovascular exam: Present regular rate and normal rhythm; Absent normal heart sounds Abdominal Exam Abdominal exam: Present soft and normal bowel sounds; Absent tenderness Extremities Exam Extremities exam: Present normal inspection and full ROM Back Exam Back exam: Present normal inspection and full ROM Neurological Exam Neurological exam: Present alert, oriented X3 and CN II-XII intact; Absent motor sensory deficit Psychiatric Psychiatric exam: Present flat affect and other (He has delayed and slowed responses however they are appropriate) Skin Skin exam: Present warm, dry and normal color Medical Decision Making Medical Records Medical records reviewed: Yes I reviewed the patient's medical records. David Inquiry Pt receiving controlled substance: No Vital Signs: 11/30/23 14:20 11/30/23 15:46 11/30/23 16:50 Temperature 97.8 F Temperature Source Oral Pulse Rate 69 66 Pulse Rate [Left Radial] 74 Respiratory Rate 16 16 18 Blood Pressure 116/67 122/69 Blood Pressure [Right Arm] 111/64 Blood Pressure Mean [Right Arm] 79 Blood Pressure Source Automatic Cuff Blood Pressure Source [Right Arm] Automatic Cuff Blood Pressure Position Sitting Blood Pressure Position [Right Arm] Sitting 02 Sat by Pulse Oximetry 96 96 Oxygen Delivery Method Room Air Room Air 07/22/24 19:30 11/30/23 20:01 11/30/23 20:30 Temperature Temperature Source Pulse Rate 56 L 53 L 59 L Pulse Rate [Left Radial] Respiratory Rate Blood Pressure 119/64 98/55 L 118/66 Blood Pressure [Right Arm] Blood Pressure Mean [Right Arm] Blood Pressure Source Blood Pressure Source [Right Arm] Blood Pressure Position Blood Pressure Position [Right Arm] 02 Sat by Pulse Oximetry 97 97 98 Oxygen Delivery Method 11/30/23 21:00 Temperature Temperature Source Pulse Rate 57 L Pulse Rate [Left Radial] Respiratory Rate 17 Blood Pressure 121/67 Blood Pressure [Right Arm] Blood Pressure Mean [Right Arm] Blood Pressure Source Blood Pressure Source [Right Arm] Blood Pressure Position Blood Pressure Position [Right Arm] 02 Sat by Pulse Oximetry 98 Oxygen Delivery Method Lab Data Lab results reviewed: Yes I reviewed the patient's lab results. Lab Results 11/30/23 14:13: WBC 8.5 D, RBC 3.72 L, Hgb 15.4, Hct 40.7 L, MCV 109.3 H, MCH 41.4 H*, MCHC 37.9 H, RDW 14.1, Plt Count 148, MPV 8.7, Neut % (Auto) 78.2, Lymph % (Auto) 13.9, [place]eman % (Auto) 7.6, Eos % (Auto) 0.0 L, Baso % (Auto) 0.2, Neut # (Auto) 6.7, Lymph # (Auto) 1.2, Hodgeman # (Auto) 0.7, Eos # (Auto) 0.0, Baso # (Auto) 0.0, Sodium 143, Potassium 4.1, Chloride 109 H, Carbon Dioxide 21 L, A nion Gap 17.1 H, BUN 14, Creatinine 0.80, Estimated Creat Clear 86, Estimated GFR 98, Est GFR ( Amer) 119, Glucose 101 H, Calcium 9.8, Total Bilirubin 0.7, AST 75 H D, ALT 53 D, Alkaline Phosphatase 79, Total Protein 7.5, Albumin 3.9 D, Globulin 3.6 H, Albumin/Globulin Ratio 1.1 11/30/23 20:00: Urine Color Yellow, Urine Appearance Clear, Urine pH 7.0, Ur Specific [place] 1.025, Urine Protein 1+, Urine Glucose (UA) Negative, Urine Ketones 2+, Urine Blood 3+, Urine Nitrate Negative, Urine Bilirubin Negative, Urine Urobilinogen 0.2, Ur Leukocyte Esterase Negative, Urine RBC 5-10, Urine WBC 3-5, Ur Squamous Epith Cells 3-5, Urine Bacteria 1+, Urine Mucus 1+, Urine Opiates Screen Negative, Urine Methadone Screen Negative, Ur Barbituates Screen Negative, Ur Phencyclidine Scrn Negative, Ur Amphetamines Screen Negative, U Benzodiazepines Scrn Negative, Urine Cocaine Screen Negative, U Marijuana (THC) Screen Negative 11/30/23 20:35: Gastric Occult Blood Positive 11/30/23 14:13 11/30/23 14:13 Orders (Tests/Meds): ED MEDICATIONS Generic Name Dose Route Start Last Admin Trade Name Freq PRN Reason Stop Dose Admin Pantoprazole Sodium 80 mg/ 100 mls @ 10 mls/hr 11/30/23 21:00 Sodium Chloride IV 12/03/23 20:59 .Q10H SUKHJINDER Ceftriaxone Sodium 1 gm/ 50 mls @ 100 mls/hr 11/30/23 21:15 Sodium Chloride IV 12/10/23 21:14 Q24H SUKHJINDER Sodium Chloride 1,000 mls @ 999 mls/hr 11/30/23 21:24 Sod Chlor 0.9% 1000ml Bag IV 11/30/23 22:24 .Q1H1M ONE Iopamidol 75 ml 11/30/23 21:17 11/30/23 21:22 Iopamidol-370 (76%);100ml Bottle IV 11/30/23 21:18 75 ml ONCE ONE Administration Iopamidol 75 ml 11/30/23 21:19 Iopamidol-370 (76%);100ml Bottle IV 11/30/23 21:20 ONCE ONE Sodium Chloride 10 ml 11/30/23 14:47 Sodium Chloride 0.9% 10ml Flush Syringe IV 12/30/23 14:46 NEEDED PRN Maintain IV Site Sodium Chloride 10 ml 11/30/23 21:17 11/30/23 21:22 Sodium Chloride 0.9% 10ml Syr (Rad Only) IV 11/30/23 21:18 10 ml ONCE ONE Administration Sodium Chloride 10 ml 11/30/23 21:19 Sodium Chloride 0.9% 10ml Syr (Rad Only) IV 07/22/24 21:20 ONCE ONE Discontinued Medications Generic Name Dose Route Start Last Admin Trade Name Buddy PRN Reason Stop Dose Admin Ondansetron HCl 4 mg 11/30/23 14:59 11/30/23 15:02 Ondansetron 4mg/2ml Vial IV 11/30/23 15:00 4 mg ONCE ONE Administration Promethazine HCl 12.5 mg 11/30/23 15:12 11/30/23 15:25 Promethazine Hcl 25mg/Ml 1ml Vial IV 11/30/23 15:13 12.5 mg ONCE ONE Administration Sodium Chloride 25 ml 11/30/23 15:12 11/30/23 15:25 Sodium Chloride 0.9% 25ml Bag IV 11/30/23 15:13 25 ml ONCE ONE Administration ORDERS Category Date Time Status Type and Screen Stat BBK 11/30/23 21:[address] abdomen pelvis w con Stat Cat Scan 11/30/23 21:03 Taken Complete Blood Count Auto Diff Stat Lab 11/30/23 14:13 Completed Comprehensive Metabolic Panel Stat Lab 11/30/23 14:13 Completed Occult Blood,Gastric Fluid Stat Lab 11/30/23 20:35 Completed UA [Urinalysis and Microscopic] Stat Lab 11/30/23 20:00 Completed UDS [Drug Screen,Urine] Stat Lab 11/30/23 20:00 Completed Medical Decision Narrative: In summary patient is a 63-year-old male who presents to the emergency department for evaluation of reported alteration in mental status. Patient is hemodynamically stable upon arrival, afebrile. Physical exam is remarkable for a very flat affect slowed responses but appropriate. He intermittently however appears to be catatonic and has no responses even to sternal rub and then abruptly interactive briefly. Patient is also had several episodes of emesis that appear to be tobacco juice. Differential diagnosis includes catatonia undifferentiated versus nicotine toxicity though less likely given his normal heart rate and blood pressure. Initial workup will be conducted with hematologic labs. Initial interventions include antiemetics and contacting [facility] for evaluation. Initial workup reviewed by me shows that his hematologic labs are nonactionable however his urinalysis is different than yesterday and actually shows leukocytes and 1+ bacteria. Patient's catatonia has not improved and he has been virtually in an interactive his entire stay today upon reassessment nurse walked into the room and saw dark emesis on his gown. We actually tested this emesis and turns out as not tobacco use but Gastroccult positive. Given this we have started the patient on Protonix start him on Rocephin and scan his abdomen. I had a interact discussion of Dr. Blank of general surgery who is available for endoscopy tomorrow. Given that I had interactive discussion with hospital medicine who is agreed for admission for further evaluation and care.. Critical Care Critical Care Time Critical Care Time: No
[2023-11-30 14:57] LABS: Basophils % 0.2 % (0.1-2.0); Hematocrit 40.7 % (42.0-52.0); Hemoglobin 15.4 g/dL (14.1-18.0); Lymphocytes # 1.2 K/mm3 (0.7-4.5); Lymphocytes % 13.9 % (10-50); Mean Corpuscular HGB Conc 37.9 g/dL (31.8-35.4); Mean Corpuscular Volume 109.3 fl (80-94); Mean Platelet Volume 8.7 fl (7.4-10.4); Monocytes # 0.7 K/mm3 (0.1-1.0); Monocytes % 7.6 % (1.7-9.3); Neutrophils # 6.7 K/mm3 (1.8-7.8); Neutrophils % 78.2 % (37.0-80.0); Platelet Count 148 K/mm3 (142-424); Red Blood Count 3.72 M/mm3 (4.60-6.20); Red Cell Distribution Width 14.1 % (11.5-17.5); White Blood Count 8.5 K/mm3 (4.8-10.8)
[2023-11-30 14:58] LABS: Chloride 109 mmol/L (98-107); Potassium 4.1 mmoL/L (3.5-5.1); Sodium 143 mmol/L (136-145)
[2023-11-30 15:00] LABS: Alanine Aminotransferase 53 U/L (12-78); Alkaline Phosphatase 79 U/L (38-126); Anion Gap 17.1 mEq/L (5-15); Aspartate Amino Transferase 75 U/L (17-59); Bilirubin,Total 0.7 mg/dl (0.2-1.3); Blood Urea Nitrogen 14 mg/dl (9-20); Carbon Dioxide 21 mmol/L (22.0-30.0); Creatinine Clearance Estimated 86 mL/min (50-200); Estimated Glomerular Filt Rate 98 ml/min (>60); GFR (African American) 119 ML/MIN (>60)
[2023-11-30 15:01] LABS: Albumin Level 3.9 g/dl (3.5-5.0); Albumin/Globulin Ratio 1.1 (1.1-1.8); Calcium 9.8 mg/dl (8.4-10.2); Globulin 3.6 g/dL (1.3-3.2); Glucose 101 mg/dl (74-100); Mean Corpuscular Hemoglobin 41.4 pg (27.0-31.2); Total Protein,Serum 7.5 g/dl (6.3-8.2)
[2023-11-30] MEDS: ONDANSETRON 4MG/2ML VIAL 4 MG IV (15:02)
[2023-11-30] MEDS: PROMETHAZINE HCL 25MG/ML 1ML VIAL 12.5 MG IV (15:25)
[2023-11-30] MEDS: SODIUM CHLORIDE 0.9% 25ML BAG 25 ML IV (15:25)
--- NOTE | 2023-11-30 18:45 | PC.NURSE ---
pt moved to room 11 from hallway bed, placed back on monitor, pt resting quietly, August RN spoke with [facility] inpatient psych unit about requirements, records to be faxed to
--- NOTE | 2023-11-30 18:57 | ECG_ITS ---
APPROVED REPORT Exam: Resting ECG HR:59 bpm ECG Measurements Heart Rate 59 AXES CO 138 P 74 QRSd 97 QRS -81 QT 442 T 68 QTc 442 Conclusion SINUS BRADYCARDIA LEFT AXIS DEVIATION [QRS AXIS < -30] LOW QRS VOLTAGE IN EXTREMITY LEADS [QRS DEFLECTION < 0.5 mV IN LIMB LEADS] PATTERN CONSISTENT WITH PULMONARY DISEASE ST DEVIATION AND MODERATE T-WAVE ABNORMALITY, CONSIDER ANTERIOR ISCHEMIA [-0.1+ mV T-WAVE IN V3/V4] ABNORMAL ECG UNCONFIRMED REPORT Electronically signed by : Tom Eli, 11/30/2023 23:24:29
--- NOTE | 2023-11-30 20:04 | PC.NURSE ---
pt was in and out cathed for urine specimen as he was unable to use urinal or help move himself up in the bed, pt was found to be wet,so pt was stripped and put in a gown and placed chucks under him for incontinence episodes and pulled patient up in bed, pt resting quietly and vitals within normal limits
[2023-11-30 20:11] LABS: Microscopic, Urine URINE MICROSCOPIC (MICROSCOPIC)
--- NOTE | 2023-11-30 20:30 | PC.NURSE ---
RN noted pt vomit was coffee ground like and patient had been here several hours with two different nausea meds on board and nothing to eat or drink so hemoccult sample was sent down to lab and was positive, ER provider made aware of result as well as UA/UDS result
[2023-11-30 20:31] LABS: Appearance,Urine CLEAR (Clear); Bilirubin,Urine Negative (Negative); Blood, Urine 3+ (Negative); Color,Urine YELLOW (Yellow); Glucose,Urine (UA) Negative (Negative); Ketones,Urine 2+ (Negative); Leukocyte Esterase,Urine Negative (Negative); Nitrate,Urine Negative (Negative); Protein,Urine 1+ (Negative); Specific Gravity, Urine 1.025 (1.005-1.030); Urobilinogen,Urine 0.2 EU/dl (0.2)
[2023-11-30 20:46] LABS: Amphetamine/Metha Screen,Urine Negative ng/ml (<1000)
[2023-11-30 20:47] LABS: Barbiturates Screen,Urine Negative ng/ml (<200); Benzodiazepines Screen,Urine Negative ng/ml (<200)
[2023-11-30 20:48] LABS: Cannabinoid Screen,Urine Negative ng/ml (<50)
[2023-11-30 20:48] LABS: Occult Blood,Gastric Fluid Positive (Negative)
[2023-11-30 20:49] LABS: Cocaine Screen,Urine Negative ng/ml (<300); Methadone Screen,Urine Negative ng/ml (<300)
[2023-11-30 20:50] LABS: Opiate Screen,Urine Negative ng/ml (<300); Phencyclidine Screen,Urine Negative ng/ml (<25)
[2023-11-30 20:55] LABS: Bacteria,Urine 1+ /lpf; Mucus,Urine 1+ /lpf
--- NOTE | 2023-11-30 21:03 | CT_ITS ---
PROCEDURE INFORMATION: Exam: CT Abdomen And Pelvis With Contrast Exam date and time: 11/30/2023 9:19 PM Age: 63 years old Clinical indication: Vomiting and other: Hematemesis TECHNIQUE: Imaging protocol: Computed tomography of the abdomen and pelvis with contrast. Radiation optimization: All CT scans at this facility use at least one of these dose optimization techniques: automated exposure control; mA and/or kV adjustment per patient size (includes targeted exams where dose is matched to clinical indication); or iterative reconstruction. Contrast material: ISOVUE; Contrast volume: 75 ml; Contrast route: IV; COMPARISON: CT LUMBAR SPINE WO CON 07/01/2023 10:38 PM FINDINGS: Lungs: The visualized lung bases demonstrate no focal infiltrates. Liver: Mild diffuse hepatic steatosis is identified. Simple hepatic cyst right hepatic lobe measures 16 mm. Gallbladder and biliary ducts: Normal. No calcified stones. No ductal dilation. Pancreas: The pancreas is normal. Spleen: The spleen is normal. Adrenal glands: The adrenal glands appear within normal limits. Kidneys and ureters: The kidneys are normal. Stomach and bowel: Unremarkable. No obstruction. No mucosal thickening. Appendix: No evidence of appendicitis. Intraperitoneal space: Unremarkable. No free air. No significant fluid collection. Vasculature: Moderate atherosclerotic calcifications of the aorta. Lymph nodes: Unremarkable. No enlarged lymph nodes. Urinary bladder: The bladder appears within normal limits. No wall thickening. Reproductive: The prostate gland appears normal. Bones/joints: The regional skeletal structures appear within normal limits for age. Soft tissues: Unremarkable. IMPRESSION: No acute inflammatory process identified within the abdomen or pelvis.
--- NOTE | 2023-11-30 21:12 | PC.NURSE ---
pt to ct scan
--- NOTE | 2023-11-30 21:17 | PC.NURSE ---
pt transported to ct scan via radar operator and stretch
[2023-11-30] MEDS: IOPAMIDOL-370 (76%);100ML BOTTLE 75 ML IV (21:22)
[2023-11-30] MEDS: SODIUM CHLORIDE 0.9% 10ML SYR (RAD ONLY) 10 ML IV (21:22)
--- NOTE | 2023-11-30 21:24 | PC.NURSE ---
greenhouse manager notified of need for bed
--- NOTE | 2023-11-30 21:44 | P.HP_ITS ---
History of Present Illness *Admission Date: 11/30/23 *Reason for visit:: AMS, upper GIB *History of present illness: Kar Grewal is a 63 year old male with an unknown psychiatric disorder who presents to the emergency room this evening with complaints of worsening mental status. Pt is a resident at [facility]. Appears he takes risperidone and divalproex. Facility staff reports he has been declining in function, slow to respond/not responding, and not answering questions. Pt does track me with his eyes. Does not follow commands. Pt has what looks like coffee ground emesis on his face and front of his shirt. Staff at [facility] state they think he drank his room mates chewing tobacco spit out of a cup. Pt unable to give any health history. Lab work in the ER was essentially unremarkable. H&H stable at 15.4 and 40. ALT and AST is elevated at 53 and 75. UA was negative. Gastric occult was noted to be positive General surgery was consulted, agreed to see the patient in consult and do endoscopy tomorrow. He was given a gram of Rocephin for what was thought to be a UTI. He will be then to the hospitalist service for upper GI bleed. [facility] Disclaimer: The information contained in this section may have been updated after the patient was seen, as this information can be updated by other users. Medical History Epilepsy Family History Other No significant family history Social History (Updated 11/30/23 @ 23:09 by Yudi Rubin RN) Smoking Status: Current every day smoker alcohol intake: never current occupational status: retired Travel in the last 8 weeks: None Review of Systems Review of Systems Review of systems:: unable to obtain Meds Home Medications and Allergies Home Medications Medication Instructions Recorded Confirmed Type divalproex 500 mg tablet,extended 500 mg PO BID 07/01/23 12/01/23 History release 24 hr hydroxyzine pamoate 50 mg capsule 50 mg PO HS 07/01/23 12/01/23 History melatonin 3 mg tablet 3 mg PO HS 07/01/23 12/01/23 History thiamine HCl (vitamin B1) 100 mg 100 mg PO DAILY 07/01/23 12/01/23 History tablet (Vitamin B-1) cyanocobalamin (vitamin B-12) 100 100 mcg PO DAILY 12/01/23 12/01/23 History mcg tablet pantoprazole 40 mg tablet,delayed 40 mg PO DAILY #30 tabs 12/01/23 Rx release risperidone 3 mg tablet 3 mg PO BID 12/01/23 12/01/23 History New Prescriptions to Start Prescriptions: pantoprazole Tom Rapp Allergies Allergy/AdvReac Type Severity Reaction Status Date / Time No Known Allergies Allergy Verified 11/29/23 18:45 Exam Data for Last 24 hours Vital signs and Labs for Last 24 Hours: Temp Pulse Resp BP Pulse Ox O2 Del Method 97.8 F 57 L 17 121/67 98 Room Air 11/30/23 14:20 11/30/23 21:00 11/30/23 21:00 11/30/23 21:00 11/30/23 21:00 11/30/23 15:46 Laboratory Results - last 24 hr 11/30/23 14:13: WBC 8.5 D, RBC 3.72 L, Hgb 15.4, Hct 40.7 L, MCV 109.3 H, MCH 41.4 H*, MCHC 37.9 H, RDW 14.1, Plt Count 148, MPV 8.7, Neut % (Auto) 78.2, Lymph % (Auto) 13.9, [place] % (Auto) 7.6, Eos % (Auto) 0.0 L, Baso % (Auto) 0.2, Neut # (Auto) 6.7, Lymph # (Auto) 1.2, [place] # (Auto) 0.7, Eos # (Auto) 0.0, Baso # (Auto) 0.0, Sodium 143, Potassium 4.1, Chloride 109 H, Carbon Dioxide 21 L, Anion Gap 17.1 H, BUN 14, Creatinine 0.80, Estimated Creat Clear 86, Estimated GFR 98, Est GFR ( Amer) 119, Glucose 101 H, Calcium 9.8, Total Bilirubin 0.7, AST 75 H D, ALT 53 D, Alkaline Phosphatase 79, Total Protein 7.5, Albumin 3.9 D, Globulin 3.6 H, Albumin/Globulin Ratio 1.1 11/30/23 20:00: Urine Color Yellow, Urine Appearance Clear, Urine pH 7.0, Ur Specific [place] 1.025, Urine Protein 1+, Urine Glucose (UA) Negative, Urine Ketones 2+, Urine Blood 3+, Urine Nitrate Negative, Urine Bilirubin Negative, Urine Urobilinogen 0.2, Ur Leukocyte Esterase Negative, Urine RBC 5-10, Urine WBC 3-5, Ur Squamous Epith Cells 3-5, Urine Bacteria 1+, Urine Mucus 1+, Urine Opiates Screen Negative, Urine Methadone Screen Negative, Ur Barbituates Screen Negative, Ur Phencyclidine Scrn Negative, Ur Amphetamines Screen Negative, U Benzodiazepines Scrn Negative, Urine Cocaine Screen Negative, U Marijuana (THC) Screen Negative 11/30/23 20:35: Gastric Occult Blood Positive I & O for Last 24 hours: Intake & Output 11/27/23 11/28/23 11/29/23 11/30/23 23:59 23:59 23:59 23:59 Weight 79.379 kg *Routine HEENT Exam Head: Present normocephalic and atraumatic Eye: Present EOMI and PERRL ENT: Present mucous membranes moist *Routine Neck Exam Neck: Present supple *Routine Respiratory Exam Respiratory: Present CTA bilaterally *Routine Cardiovascular Exam Cardiovascular: Present RRR, Normal S1 and Normal S2 *Routine Abdominal Exam Abdominal: Present soft and normoactive bowel sounds *Routine Rectal Exam Rectal:: deferred *Routine Genitalia Exam Genitalia:: deferred *Routine Extremities Exam Extremities: Present pulses intact and normal capillary refill *Routine Skin Exam Skin: Present intact *Routine Neurological Exam Neurological: Present altered mental status Comments: Pt with intermittent catatonia. Does track with his eyes, does not speak, does not follow commands. Detailed Neurological Exam: Coma Scale Coma scale eye opening: Spontaneous Coma scale motor response: Localizes to pain Coma scale verbal response: None Coma scale total: 10 Assessment and Plan *Assessment and plan (1) Upper GI bleed: Status: Acute Category: Medical Code(s): K92.2 - Gastrointestinal hemorrhage, unspecified (2) Catatonia: Status: Acute Category: Medical Code(s): F06.1 - Catatonic disorder due to known physiological condition Plan Assessment: This is a 63 year old gentleman who is being admitted for upper GIB. On my exam, patient is lying in bed in no acute distress. Plan: Admit to observation- IN Upper GIB -80mg of protonix now and then 40mg BID -NPO -consult general surg -monitor CBC every 6 hours x3, then daily Catatonia? Schizophrenia -Needs geripsych placement -Restart risperdone/divalproex when patient able to take PO DVT prophylxis: SCDs Code Status: Full code Skin: high risk No next of kin listed Rounded on patient after nurse practitioner. Personally examined and interviewed patient. Agree with exam findings and care plan as documented.
--- NOTE | 2023-11-30 21:46 | PC.NURSE ---
attempted to call report to floor nurse, rn stated she would call back after coming out of patient room
[2023-11-30] MEDS: CEFTRIAXONE 1 GM 1 GM in 0.9 % SODIUM CHLORIDE 50 ML IV (21:55)
[2023-11-30] MEDS: 0.9 % SODIUM CHLORIDE 1000ML 1,000 ML 999 ML IV (21:56)
[2023-11-30] MEDS: PANTOPRAZOLE SODIUM 80 MG in 0.9 % SODIUM CHLORIDE 100 ML 100 MG IV (21:56)
[2023-11-30 22:00] LABS: Basophils % 0.4 % (0.1-2.0); Eosinophils % 0.1 % (0.1-12.0); Hematocrit 41.8 % (42.0-52.0); Hemoglobin 14.3 g/dL (14.1-18.0); Lymphocytes # 1.1 K/mm3 (0.7-4.5); Lymphocytes % 20.1 % (10-50); Mean Corpuscular HGB Conc 34.3 g/dL (31.8-35.4); Mean Corpuscular Hemoglobin 37.9 pg (27.0-31.2); Mean Corpuscular Volume 110.6 fl (80-94); Mean Platelet Volume 8.7 fl (7.4-10.4); Monocytes # 0.4 K/mm3 (0.1-1.0); Monocytes % 7.6 % (1.7-9.3); Neutrophils % 71.7 % (37.0-80.0); Platelet Count 128 K/mm3 (142-424); Red Blood Count 3.78 M/mm3 (4.60-6.20); Red Cell Distribution Width 13.9 % (11.5-17.5); White Blood Count 5.5 K/mm3 (4.8-10.8)
--- NOTE | 2023-11-30 22:10 | PC.NURSE ---
Gave report to Yudi GATES on Med /Surg
--- NOTE | 2023-11-30 22:28 | PC.NURSE ---
pt arrived to floor via stretcher @ [id number]
--- NOTE | 2023-11-30 22:40 | PC.NURSE ---
Pt is extremely slow to answer staff must repeat questions often. Pt does respond to nodding for yes or no questions with an occasional verbal response. Pt has a red area to his coccyx that is blanchable. This nurse applied barrier cream and staff turned pt to his right side to relieve pressure on red area.
[2023-11-30] MEDS: PANTOPRAZOLE SODIUM 80 MG in 0.9 % SODIUM CHLORIDE 100 ML 10 MG IV (23:10)
[2023-12-01] VITALS: BP 103/57; PULSE 59; RESP 18; TEMP 36.8; O2SAT 95
[2023-12-01 03:40] LABS: Basophils % 0.5 % (0.1-2.0); Eosinophils % 0.2 % (0.1-12.0); Hemoglobin 13.3 g/dL (14.1-18.0); Lymphocytes # 2.6 K/mm3 (0.7-4.5); Mean Corpuscular HGB Conc 34.1 g/dL (31.8-35.4); Mean Corpuscular Hemoglobin 37.3 pg (27.0-31.2); Mean Corpuscular Volume 109.2 fl (80-94); Mean Platelet Volume 9.5 fl (7.4-10.4); Monocytes # 0.6 K/mm3 (0.1-1.0); Monocytes % 9.1 % (1.7-9.3); Neutrophils # 3.4 K/mm3 (1.8-7.8); Neutrophils % 51.2 % (37.0-80.0); Platelet Count 130 K/mm3 (142-424); Red Blood Count 3.57 M/mm3 (4.60-6.20); Red Cell Distribution Width 13.9 % (11.5-17.5); White Blood Count 6.7 K/mm3 (4.8-10.8)
[2023-12-01 04:00] VITALS: BP 104/55; PULSE 54; RESP 16; TEMP 37.7; O2SAT 94; BMI 21.7
--- NOTE | 2023-12-01 06:08 | PC.NURSE ---
Mr Villalobos, a resident of [facility], was newly admitted last night due to a GI bleed. Mr Villalobos has a history of epilepsy, catatonia, anxiety, and schizophrenia. Patient also has altered mental status but maintains great eye contact and can speak clearly but quietly. Patient is alert and oriented to himself at this time. Patient appears to be able to verbally answer yes/no questions better than open-ended questions. However, patient's responses are slightly delayed, and certain questions were not able to be answered by the patient during his admission. The patient is also able to nod/shake his head to respond and can occasionally respond with phrases. Patient's pupils appeared to be pinpointed bilaterally upon inspection. Patient also had a reddened area on his coccyx noted; barrier cream was applied after receiving a full bed bath this shift. Patient did complain of pain in his abdomen upon palpation. Patient received Protonix IV per MAR this shift. Patient has not had any further complaints this shift other than just being thirsty. Patient did get up out of bed this morning (around 06:15) and was found standing straight at bedside as reported by techs to me. Patient was reoriented and helped back into bed. Patient remains NPO at this time and is expected to have a GI consult this morning. Patient is currently awake and resting supine at this time. Bed alarm is on. Seizure pads are in place. Call light within reach.
[2023-12-01 06:14] LABS: Anion Gap 6.9 mEq/L (5-15); Blood Urea Nitrogen 18 mg/dl (9-20); Calcium 9.1 mg/dl (8.4-10.2); Carbon Dioxide 27 mmol/L (22.0-30.0); Chloride 110 mmol/L (98-107); Creatinine Clearance Estimated 79 mL/min (50-200); Estimated Glomerular Filt Rate 114 ml/min (>60); GFR (African American) 138 ML/MIN (>60); Glucose 84 mg/dl (74-100); INR 1.01 (0.9-1.1); Potassium 3.9 mmoL/L (3.5-5.1); Prothrombin Time 11.3 seconds (10.1-12.5); Sodium 140 mmol/L (136-145)
--- NOTE | 2023-12-01 07:26 | HMH.PHAINT1 ---
Pharmacy Intervention Comments: VERIFIED HOME MEDICATION LIST USING MAR FROM [facility]
[2023-12-01 08:00] VITALS: BP 83/35; PULSE 48; RESP 16; TEMP 36.8; O2SAT 95
[2023-12-01] MEDS: LACTATED RINGERS 1000ML 1,000 ML 250 ML IV (08:01)
[2023-12-01] MEDS: SODIUM CHLORIDE 0.9% 10ML VIAL 10 ML IV (08:01)
[2023-12-01] MEDS: PANTOPRAZOLE 40MG VIAL 40 MG IV (08:01)
--- NOTE | 2023-12-01 08:19 | P.CONS_ITS ---
History of Present Illness *Admission Date: 11/30/23 *Reason for visit:: Upper GIB *History of present illness: Patient is a 63-year-old male with unknown psychiatric disorder who is a resident at [facility] who was brought in by EMS to [facility] emergency department in the evening of 11/30/2023 with mental status changes. He had some coffee-ground material on his mouth and shirt. Initially staff at facility thought that he had drank his roommates chewing tobacco spit. However reportedly this was Hemoccult positive. He was admitted for inpatient management and consultation for EGD. Patient had been seen in the emergency department in the evening of 11/29/2023 at which time he was noted to have a hemoglobin of 14.5. When he was brought back to the emergency department he had a hemoglobin of 14.3. This morning it is 13.3. No signs of active GI bleeding. BUN is normal. . [facility] Disclaimer: The information contained in this section may have been updated after the patient was seen, as this information can be updated by other users. Medical History Epilepsy Family History Other No significant family history Social History (Updated 11/30/23 @ 23:09 by Yudi Rubin RN) Smoking Status: Current every day smoker alcohol intake: never current occupational status: retired Travel in the last 8 weeks: None Meds Home Medications and Allergies Home Medications Medication Instructions Recorded Confirmed Type divalproex 500 mg tablet,extended 500 mg PO BID 07/01/23 12/01/23 History release 24 hr hydroxyzine pamoate 50 mg capsule 50 mg PO HS 07/01/23 12/01/23 History melatonin 3 mg tablet 3 mg PO HS 07/01/23 12/01/23 History thiamine HCl (vitamin B1) 100 mg 100 mg PO DAILY 07/01/23 12/01/23 History tablet (Vitamin B-1) cyanocobalamin (vitamin B-12) 100 100 mcg PO DAILY 12/01/23 12/01/23 History mcg tablet risperidone 3 mg tablet 3 mg PO BID 12/01/23 12/01/23 History New Prescriptions to Start Prescriptions: Allergies Allergy/AdvReac Type Severity Reaction Status Date / Time No Known Allergies Allergy Verified 11/29/23 18:45 Exam (Inpt) Vital signs and Labs for Last 24 Hours: Temp Pulse Resp BP Pulse Ox O2 Del Method 99.8 F H 54 L 16 104/55 L 94 L Room Air 12/01/23 04:00 12/01/23 04:00 12/01/23 04:00 12/01/23 04:00 12/01/23 04:00 12/01/23 06:39 Laboratory Results - last 24 hr 11/30/23 14:13: WBC 8.5 D, RBC 3.72 L, Hgb 15.4, Hct 40.7 L, MCV 109.3 H, MCH 41.4 H*, MCHC 37.9 H, RDW 14.1, Plt Count 148, MPV 8.7, Neut % (Auto) 78.2, Lymph % (Auto) 13.9, [place] % (Auto) 7.6, Eos % (Auto) 0.0 L, Baso % (Auto) 0.2, Neut # (Auto) 6.7, Lymph # (Auto) 1.2, [place] # (Auto) 0.7, Eos # (Auto) 0.0, Baso # (Auto) 0.0, Sodium 143, Potassium 4.1, Chloride 109 H, Carbon Dioxide 21 L, A nion Gap 17.1 H, BUN 14, Creatinine 0.80, Estimated Creat Clear 86, Estimated GFR 98, Est GFR ( Amer) 119, Glucose 101 H, Calcium 9.8, Total Bilirubin 0.7, AST 75 H D, ALT 53 D, Alkaline Phosphatase 79, Total Protein 7.5, Albumin 3.9 D, Globulin 3.6 H, Albumin/Globulin Ratio 1.1 11/30/23 20:00: Urine Color Yellow, Urine Appearance Clear, Urine pH 7.0, Ur Specific [place] 1.025, Urine Protein 1+, Urine Glucose (UA) Negative, Urine Ketones 2+, Urine Blood 3+, Urine Nitrate Negative, Urine Bilirubin Negative, Urine Urobilinogen 0.2, Ur Leukocyte Esterase Negative, Urine RBC 5-10, Urine WBC 3-5, Ur Squamous Epith Cells 3-5, Urine Bacteria 1+, Urine Mucus 1+, Urine Opiates Screen Negative, Urine Methadone Screen Negative, Ur Barbituates Screen Negative, Ur Phencyclidine Scrn Negative, Ur Amphetamines Screen Negative, U Benzodiazepines Scrn Negative, Urine Cocaine Screen Negative, U Marijuana (THC) Screen Negative 11/30/23 20:35: Gastric Occult Blood Positive 11/30/23 21:40: WBC 5.5 D, RBC 3.78 L, Hgb 14.3, Hct 41.8 L, MCV 110.6 H, MCH 37.9 H, MCHC 34.3, RDW 13.9, Plt Count 128 L, MPV 8.7, Neut % (Auto) 71.7, Lymph % (Auto) 20.1, [place] % (Auto) 7.6, Eos % (Auto) 0.1, Baso % (Auto) 0.4, Neut # (Auto) 4.0, Lymph # (Auto) 1.1, [place] # (Auto) 0.4, Eos # (Auto) 0.0, Baso # (Auto) 0.0, Blood Type O Positive, Antibody Screen Negative 12/01/23 03:35: WBC 6.7, RBC 3.57 L, Hgb 13.3 L, Hct 39.0 L, MCV 109.2 H, MCH 37.3 H, MCHC 34.1, RDW 13.9, Plt Count 130 L, MPV 9.5, Neut % (Auto) 51.2, Lymph % (Auto) 39.0, [place] % (Auto) 9.1, Eos % (Auto) 0.2, Baso % (Auto) 0.5, Neut # (Auto) 3.4, Lymph # (Auto) 2.6, [place] # (Auto) 0.6, Eos # (Auto) 0.0, Baso # (Auto) 0.0 12/01/23 05:55: PT 11.3, INR 1.01, Sodium 140, Potassium 3.9, Chloride 110 H, Carbon Dioxide 27, Anion Gap 6.9, BUN 18 D, Creatinine 0.70, Estimated Creat Clear 79, Estimated GFR 114, Est GFR ( Amer) 138, Glucose 84, Calcium 9.1 I & O for Labs for Last 24 Hours: Intake & Output 11/28/23 11/29/23 11/30/23 12/01/23 11:59 11:59 11:59 11:59 Intake Total 1099 / 1099 Output Total 0 / 0 Balance 1099 / 1099 Weight 160 lb Results Labs 12/01/23 03:35 12/01/23 05:55 Labs: Laboratory Results - last 24 hr 11/30/23 14:13: WBC 8.5 D, RBC 3.72 L, Hgb 15.4, Hct 40.7 L, MCV 109.3 H, MCH 41.4 H*, MCHC 37.9 H, RDW 14.1, Plt Count 148, MPV 8.7, Neut % (Auto) 78.2, Lymph % (Auto) 13.9, [place] % (Auto) 7.6, Eos % (Auto) 0.0 L, Baso % (Auto) 0.2, Neut # (Auto) 6.7, Lymph # (Auto) 1.2, [place] # (Auto) 0.7, Eos # (Auto) 0.0, Baso # (Auto) 0.0, Sodium 143, Potassium 4.1, Chloride 109 H, Carbon Dioxide 21 L, A nion Gap 17.1 H, BUN 14, Creatinine 0.80, Estimated Creat Clear 86, Estimated GFR 98, Est GFR ( Amer) 119, Glucose 101 H, Calcium 9.8, Total Bilirubin 0.7, AST 75 H D, ALT 53 D, Alkaline Phosphatase 79, Total Protein 7.5, Albumin 3.9 D, Globulin 3.6 H, Albumin/Globulin Ratio 1.1 11/30/23 20:00: Urine Color Yellow, Urine Appearance Clear, Urine pH 7.0, Ur Specific [place] 1.025, Urine Protein 1+, Urine Glucose (UA) Negative, Urine Ketones 2+, Urine Blood 3+, Urine Nitrate Negative, Urine Bilirubin Negative, Urine Urobilinogen 0.2, Ur Leukocyte Esterase Negative, Urine RBC 5-10, Urine WBC 3-5, Ur Squamous Epith Cells 3-5, Urine Bacteria 1+, Urine Mucus 1+, Urine Opiates Screen Negative, Urine Methadone Screen Negative, Ur Barbituates Screen Negative, Ur Phencyclidine Scrn Negative, Ur Amphetamines Screen Negative, U Benzodiazepines Scrn Negative, Urine Cocaine Screen Negative, U Marijuana (THC) Screen Negative 11/30/23 20:35: Gastric Occult Blood Positive 11/30/23 21:40: WBC 5.5 D, RBC 3.78 L, Hgb 14.3, Hct 41.8 L, MCV 110.6 H, MCH 37.9 H, MCHC 34.3, RDW 13.9, Plt Count 128 L, MPV 8.7, Neut % (Auto) 71.7, Lymph % (Auto) 20.1, [place] % (Auto) 7.6, Eos % (Auto) 0.1, Baso % (Auto) 0.4, Neut # (Auto) 4.0, Lymph # (Auto) 1.1, [place] # (Auto) 0.4, Eos # (Auto) 0.0, Baso # (Auto) 0.0, Blood Type O Positive, Antibody Screen Negative 12/01/23 03:35: WBC 6.7, RBC 3.57 L, Hgb 13.3 L, Hct 39.0 L, MCV 109.2 H, MCH 37.3 H, MCHC 34.1, RDW 13.9, Plt Count 130 L, MPV 9.5, Neut % (Auto) 51.2, Lymph % (Auto) 39.0, [place] % (Auto) 9.1, Eos % (Auto) 0.2, Baso % (Auto) 0.5, Neut # (Auto) 3.4, Lymph # (Auto) 2.6, [place] # (Auto) 0.6, Eos # (Auto) 0.0, Baso # (Auto) 0.0 12/01/23 05:55: PT 11.3, INR 1.01, Sodium 140, Potassium 3.9, Chloride 110 H, Carbon Dioxide 27, Anion Gap 6.9, BUN 18 D, Creatinine 0.70, Estimated Creat Clear 79, Estimated GFR 114, Est GFR ( Amer) 138, Glucose 84, Calcium 9.1 Assessment and Plan *Assessment and plan (1) Upper GI bleed: Status: Acute Category: Medical Code(s): K92.2 - Gastrointestinal hemorrhage, unspecified Plan EGD
--- NOTE | 2023-12-01 09:05 | PC.NURSE ---
TECH NOTE; NURSE NOTIFIED OF VITAL SIGNS FOR [address], SRNA
[2023-12-01 09:28] VITALS: BP 115/77
--- NOTE | 2023-12-01 09:46 | SW/DCPLANNER ---
Addendum entered by Maureen Marroquin 12/01/23 16:09: I have updated Kylie royal/ Aramis Cm that patient will return today. Kylie will look into transportation for this patient and contact med/surg once transportation is established. Original Note: Patient currently resides at [facility]. Patient is scheduled for EGD today. I will continue to follow up w/ dinorah and Kylie Cm during hospital admission. Discharge date is unknown at this time. I have attempted to reach out to Kylie Cm regarding next of kin/Guardianship for this patient: I am waiting to hear back from her.
--- NOTE | 2023-12-01 10:12 | PC.NURSE ---
called [facility] for contact information. [facility] stated Kar was homeless when he came to them and he has no contacts or guardian.
--- NOTE | 2023-12-01 11:35 | P.PN_ITS ---
Subjective *Date: 12/01/23 *Time: 11:35 Medical Exam Vital signs and Labs for Last 24 Hours: Vital Signs Temp Pulse Pulse Resp BP BP Pulse Ox 12/01/23 09:28 115/77 12/01/23 08:00 98.3 F 48 L 16 83/35 L 95 12/01/23 08:00 12/01/23 06:39 12/01/23 05:00 12/01/23 04:00 99.8 F H 54 L 16 104/55 L 94 L 12/01/23 03:00 12/01/23 01:00 12/01/23 00:00 98.3 F 59 L 18 103/57 L 95 11/30/23 23:00 11/30/23 22:30 98.2 F 59 L 12 126/75 98 11/30/23 22:30 11/30/23 22:11 97.8 F 60 15 123/75 11/30/23 22:00 60 14 126/75 98 11/30/23 21:30 58 L 13 116/62 98 11/30/23 21:00 57 L 17 121/67 98 11/30/23 20:30 59 L 118/66 98 11/30/23 20:01 53 L 98/55 L 97 11/30/23 19:30 56 L 119/64 97 11/30/23 16:50 66 18 122/69 11/30/23 15:46 69 16 116/67 96 11/30/23 14:20 97.8 F 74 16 111/64 96 O2 Del Method 12/01/23 09:28 12/01/23 08:00 Room Air 12/01/23 08:00 Room Air 12/01/23 06:39 Room Air 12/01/23 05:00 Room Air 12/01/23 04:00 Room Air 12/01/23 03:00 Room Air 12/01/23 01:00 Room Air 12/01/23 00:00 Room Air 11/30/23 23:00 Room Air 11/30/23 22:30 Room Air 11/30/23 22:30 Room Air 11/30/23 22:11 Room Air 11/30/23 22:00 Room Air 11/30/23 21:30 Room Air 11/30/23 21:00 11/30/23 20:30 11/30/23 20:01 11/30/23 19:30 11/30/23 16:50 11/30/23 15:46 Room Air 11/30/23 14:20 Room Air Intake and Output 11/30/23 12/01/23 12/01/23 23:59 07:59 15:59 Intake Total 1099 / 1099 Output Total 0 / 0 0 / 0 Balance 0 / 1099 1099 / 1099 Intake: Intake, Oral Amount 0 / 0 Intake, Total IV Amount 1099 / 1099 0.9 % Sodium Chloride 1000ML 1, 999 / 999 000 ml @ 999 mls/hr IV .Q1H1M ONE Rx#:[id number] Pantoprazole Sodium 80 mg In 0. 100 / 100 9 % Sodium Chloride 100 ml @ 100 mls/hr IV ONCE ONE Rx#: [id number] Output: Output, Urine Amount 0 / 0 0 / 0 Other: Number of Unmeasured Voids 1 1 Weight 68.634 kg 72.575 kg Patient Weight 12/01/23 23:59 Weight 72.575 kg Laboratory Results - last 24 hr 11/30/23 14:13: WBC 8.5 D, RBC 3.72 L, Hgb 15.4, Hct 40.7 L, MCV 109.3 H, MCH 41.4 H*, MCHC 37.9 H, RDW 14.1, Plt Count 148, MPV 8.7, Neut % (Auto) 78.2, Lymph % (Auto) 13.9, [place] % (Auto) 7.6, Eos % (Auto) 0.0 L, Baso % (Auto) 0.2, Neut # (Auto) 6.7, Lymph # (Auto) 1.2, [place] # (Auto) 0.7, Eos # (Auto) 0.0, Baso # (Auto) 0.0, Sodium 143, Potassium 4.1, Chloride 109 H, Carbon Dioxide 21 L, Anion Gap 17.1 H, BUN 14, Creatinine 0.80, Estimated Creat Clear 86, Estimated GFR 98, Est GFR ( Amer) 119, Glucose 101 H, Calcium 9.8, Total Bilirubin 0.7, AST 75 H D, ALT 53 D, Alkaline Phosphatase 79, Total Protein 7.5, Albumin 3.9 D, Globulin 3.6 H, Albumin/Globulin Ratio 1.1 11/30/23 20:00: Urine Color Yellow, Urine Appearance Clear, Urine pH 7.0, Ur Specific [place] 1.025, Urine Protein 1+, Urine Glucose (UA) Negative, Urine Ketones 2+, Urine Blood 3+, Urine Nitrate Negative, Urine Bilirubin Negative, Urine Urobilinogen 0.2, Ur Leukocyte Esterase Negative, Urine RBC 5-10, Urine WBC 3-5, Ur Squamous Epith Cells 3-5, Urine Bacteria 1+, Urine Mucus 1+, Urine Opiates Screen Negative, Urine Methadone Screen Negative, Ur Barbituates Screen Negative, Ur Phencyclidine Scrn Negative, Ur Amphetamines Screen Negative, U Benzodiazepines Scrn Negative, Urine Cocaine Screen Negative, U Marijuana (THC) Screen Negative 11/30/23 20:35: Gastric Occult Blood Positive 11/30/23 21:40: WBC 5.5 D, RBC 3.78 L, Hgb 14.3, Hct 41.8 L, MCV 110.6 H, MCH 37.9 H, MCHC 34.3, RDW 13.9, Plt Count 128 L, MPV 8.7, Neut % (Auto) 71.7, Lymph % (Auto) 20.1, [place] % (Auto) 7.6, Eos % (Auto) 0.1, Baso % (Auto) 0.4, Neut # (Auto) 4.0, Lymph # (Auto) 1.1, [place] # (Auto) 0.4, Eos # (Auto) 0.0, Baso # (Auto) 0.0, Blood Type O Positive, Antibody Screen Negative 12/01/23 03:35: WBC 6.7, RBC 3.57 L, Hgb 13.3 L, Hct 39.0 L, MCV 109.2 H, MCH 37.3 H, MCHC 34.1, RDW 13.9, Plt Count 130 L, MPV 9.5, Neut % (Auto) 51.2, Lymph % (Auto) 39.0, [place] % (Auto) 9.1, Eos % (Auto) 0.2, Baso % (Auto) 0.5, Neut # (Auto) 3.4, Lymph # (Auto) 2.6, [place] # (Auto) 0.6, Eos # (Auto) 0.0, Baso # (Auto) 0.0 12/01/23 05:55: PT 11.3, INR 1.01, Sodium 140, Potassium 3.9, Chloride 110 H, Carbon Dioxide 27, Anion Gap 6.9, BUN 18 D, Creatinine 0.70, Estimated Creat Clear 79, Estimated GFR 114, Est GFR ( Amer) 138, Glucose 84, Calcium 9.1 I & O for Labs for Last 24 Hours: Intake & Output 11/28/23 11/29/23 11/30/23 12/01/23 23:59 23:59 23:59 23:59 Intake Total 1099 / 1099 Output Total 0 / 0 0 / 0 Balance 0 1099 1099 / 1099 Weight 68.634 kg 72.575 kg
[2023-12-01 12:00] VITALS: BP 111/69; PULSE 55; RESP 18; TEMP 36.9; O2SAT 96
--- NOTE | 2023-12-01 13:32 | HMH.OTEV ---
OT Inpatient Evaluation Rehab OT IP Evaluation Start: 12/01/23 11:46 Freq: ONCE Status: Active Protocol: Document 12/01/23 13:26 [facility] (Rec: 12/01/23 13:32 [facility] [id number]) Rehab OT IP Assessment Subjective History Pt oriented x 2 on arrival. Pt agreeable to engage in therapy evaluation. Pt admitted on 11/30/23 due to AMS and GI bleed. History and physical report: Kar Grewal is a 63 year old male with an unknown psychiatric disorder who presents to the emergency room this evening with complaints of worsening mental status. Pt is a resident at [facility]. Appears he takes risperidone and divalproex. Facility staff reports he has been declining in function, slow to respond/ not responding, and not answering questions. Pt does track me with his eyes. Does not follow commands. Pt has what looks like coffee ground emesis on his face and front of his shirt. Staff at [facility] state they think he drank his room mates chewing tobacco spit out of a cup. Pt unable to give any health history. Subjective I am feeling better. Prior to being in the hospital , pt lived at [facility]. Pt claims normally he is independent with all ADLs. Pt is dependent upon staff for IADLs. Pt normally does not use any type of AE during functional transfers. Objective Patient Orientation Person,Birthday Right Upper Extremity Gross ROM WFL Left Upper Extremity Gross ROM WFL Bed Mobility bed mobility-scooting,bed mobility - supine/sit Assist Level Supervision/Stand by Transfer Training Sit/Stand Transfer Assist Level Supervision/Stand by Lower Body Dressing Ability Contact Guard Rehab OT IP prob,goals,plan Problems Date of Evaluation: 12/01/23 Rehab Potential Rehab Potential Innapropriate for Skilled Therapy Discharge Plan OT Discharge Plan Pt appears to be at his baseline with functional transfers and ADL independence . Pt can return to [facility] once he is medically stable per physician. Eval Complexity Eval Charge Codes 17955 - Moderate Complexity PHYSICIAN CERTIFICATION: I certify the specified therapy services for Kar Villalobos are required, authorized, and reviewed every 30 days.
--- NOTE | 2023-12-01 13:57 | HMH.PTEV ---
Physical Therapy Evaluation Rehab PT IP Evaluation Start: 12/01/23 11:46 Freq: ONCE Status: Active Protocol: Document 12/01/23 13:24 [facility] (Rec: 12/01/23 13:57 [facility] [id number]) Subjective/History History History Patient Kar Villalobos is a 63 yom who was admitted on for complaints of worsening mental status. It was noted that the pt is a resident at [facility] and has a roommate. His past medical history is inconsistent with little report provided from [facility] and patient recall. His only history provided mentioned Epilepsy but is not limited to just this at this time. Patient doesn't report or express any concern with being in pain at this moment. Subjective Subjective Patient does have a delayed response but is able to follow simply clear commands at this time. Patient was able to preform bed mobility, transfers, and ambulation safely without an AD and assistance on stand by as needed. New diagnosis of cancer in past 12 No months? Rehab PT IP Eval Objective Appearance Patient Behavior Cooperative,Talkative,Patient Baseline Patient Orientation Person,Place,Name,Age,Birthday Difficulty following instructions moderate Speech Pattern Clear,Delayed,Monotone,Patient Baseline Ambulation Patient Able to Ambulate Yes Ambulation Observation IP General Gait Pattern Observation No Deviations/Normal Ambulation Distance (feet) 250 Ambulation Assistive Device None Ambulation Ability Supervision/Stand by Balance Ability to Arise Able, uses arms to help Sitting Balance Steady, safe Standing Balance Narrow stance w/o support Dynamic Sitting Balance Ability Good Dynamic Standing Balance Ability Good Transfers Bed Transfer Ability Supervision/Stand by Sit to Stand Bed Transfer Ability Supervision/Stand by ROM RLE PT ROM Status WFL LLE PT ROM Status WFL Rehab PT IP prob,goals,plan Problems Date of Evaluation: 12/01/23 Rehab Potential Rehab Potential Innapropriate for Skilled Therapy Discharge Plan PT Discharge Plan Patient is not appropriate for skilled PT at this time he is able to safely ambulate without a AD, his ROM and strength are both WFL. It is recommended he return to his residence at [facility] and have availability to home health as needed. Eval Complexity Eval Charge Codes 20877 - High Complexity PHYSICIAN CERTIFICATION: I certify the specified therapy services for Kar Villalobos are required, authorized, and reviewed every 30 days.
[2023-12-01 16:00] VITALS: BP 106/55; PULSE 49; RESP 18; TEMP 37.1; O2SAT 97
--- NOTE | 2023-12-01 16:08 | P.DS_ITS ---
General Admission date:: 11/30/23 Discharge date: 12/01/23 HPI HPI HPI: Kar Grewal is a 63 year old male with an unknown psychiatric disorder who presents to the emergency room this evening with complaints of worsening mental status. Pt is a resident at [facility]. Appears he takes risperidone and divalproex. Facility staff reports he has been declining in function, slow to respond/not responding, and not answering questions. Pt does track me with his eyes. Does not follow commands. Pt has what looks like coffee ground emesis on his face and front of his shirt. Staff at [facility] state they think he drank his room mates chewing tobacco spit out of a cup. Pt unable to give any health history. Lab work in the ER was essentially unremarkable. H&H stable at 15.4 and 40. ALT and AST is elevated at 53 and 75. UA was negative. Gastric occult was noted to be positive General surgery was consulted, agreed to see the patient in consult and do endoscopy tomorrow. He was given a gram of Rocephin for what was thought to be a UTI. He will be then to the hospitalist service for upper GI bleed. Hospital Course Hospital Course Hospital Course: Mr. Grewal is a 63 year old gentleman who is being admitted for concern for positive Gastroccult. Observed overnight with serial hemoglobin. Patient had no bowel movement during admission. Hemoglobin with minimal drop, consistent with the fluid resuscitation he received. No further emesis. No abdominal pain. Evaluated by surgery. Decision to proceed with medical management. Would benefit from evaluation as an outpatient for his intermittent catatonia. Evaluated by therapy, independently ambulatory, walked around the entire kraft of the second floor. Medically stable for discharge back to his long term setting. Problems addressed as follows: Positive Gastroccult Suspected gastritis -Patient found to have positive Gastroccult on workup in the ER. Reportedly had an episode of emesis with suspected coffee grounds however he also reportedly drank his roommates dipped spit. Patient had no further episodes during admission. Had no bowel movements. No report of melena or hematochezia. Received significant fluid resuscitation overnight of admission. Repeat hemoglobin and platelets with marginal decrease. Still within normal range. Surgery evaluated, would benefit from consideration for EGD when able to consent however at this time given his stability, would be appropriate to medically manage with pantoprazole. He was loaded with 80 mg of pantoprazole on arrival and treated with 40 mg twice daily before transitioning to oral pantoprazole daily at discharge. Plan for follow-up with his PCP in the next few days with repeat CBC to monitor hemoglobin levels. Recommend outpatient follow-up with surgery in the coming weeks to discuss elective EGD. Patient medically stable for discharge home. Catatonia? Schizophrenia -Patient having intermittent catatonia. Will have long pauses during questioning and interview where he will freeze and be unresponsive and then pick right up where he left off. Currently on Risperdal and divalproex for his schizophrenia. Depakote level pending. Continued antipsychotic medications. Recommend reevaluation by geriatric psych. If symptoms progress, would benefit from inpatient psychiatric evaluation. This workup and management would be beyond the capabilities of our facility as we do not have inpatient psychiatry or neurology that would be of necessity to treat his condition. Given his medical stability, independence with ambulation, tolerance of p.o. intake, stable to discharge for continued outpatient management. Total time spent on discharge 40 minutes in counseling, documentation, chart review, and direct care with patient. Exam Data for Last 24 hours Vital signs and Labs for Last 24 Hours: Temp Pulse Resp BP Pulse Ox O2 Del Method 98.5 F 55 L 18 111/69 96 Room Air 12/01/23 12:00 12/01/23 12:00 12/01/23 12:00 12/01/23 12:00 12/01/23 12:00 12/01/23 13:00 Laboratory Results - last 24 hr 11/30/23 20:00: Urine Color Yellow, Urine Appearance Clear, Urine pH 7.0, Ur Specific [place] 1.025, Urine Protein 1+, Urine Glucose (UA) Negative, Urine Ketones 2+, Urine Blood 3+, Urine Nitrate Negative, Urine Bilirubin Negative, Urine Urobilinogen 0.2, Ur Leukocyte Esterase Negative, Urine RBC 5-10, Urine WBC 3-5, Ur Squamous Epith Cells 3-5, Urine Bacteria 1+, Urine Mucus 1+, Urine Opiates Screen Negative, Urine Methadone Screen Negative, Ur Barbituates Screen Negative, Ur Phencyclidine Scrn Negative, Ur Amphetamines Screen Negative, U Benzodiazepines Scrn Negative, Urine Cocaine Screen Negative, U Marijuana (THC) Screen Negative 11/30/23 20:35: Gastric Occult Blood Positive 11/30/23 21:40: WBC 5.5 D, RBC 3.78 L, Hgb 14.3, Hct 41.8 L, MCV 110.6 H, MCH 37.9 H, MCHC 34.3, RDW 13.9, Plt Count 128 L, MPV 8.7, Neut % (Auto) 71.7, Lymph % (Auto) 20.1, [place] % (Auto) 7.6, Eos % (Auto) 0.1, Baso % (Auto) 0.4, Neut # (Auto) 4.0, Lymph # (Auto) 1.1, [place] # (Auto) 0.4, Eos # (Auto) 0.0, Baso # (Auto) 0.0, Blood Type O Positive, Antibody Screen Negative 12/01/23 03:35: WBC 6.7, RBC 3.57 L, Hgb 13.3 L, Hct 39.0 L, MCV 109.2 H, MCH 37.3 H, MCHC 34.1, RDW 13.9, Plt Count 130 L, MPV 9.5, Neut % (Auto) 51.2, Lymph % (Auto) 39.0, [place] % (Auto) 9.1, Eos % (Auto) 0.2, Baso % (Auto) 0.5, Neut # (Auto) 3.4, Lymph # (Auto) 2.6, [place] # (Auto) 0.6, Eos # (Auto) 0.0, Baso # (Auto) 0.0 12/01/23 05:55: PT 11.3, INR 1.01, Sodium 140, Potassium 3.9, Chloride 110 H, Carbon Dioxide 27, Anion Gap 6.9, BUN 18 D, Creatinine 0.70, Estimated Creat Clear 79, Estimated GFR 114, Est GFR ( Amer) 138, Glucose 84, Calcium 9.1 I & O for Last 24 hours: Intake & Output 11/28/23 11/29/23 11/30/23 12/01/23 23:59 23:59 23:59 23:59 Intake Total 1099 / 1099 Output Total 0 / 0 0 / 0 Balance 0 1099 1099 / 1099 Weight 68.634 kg 72.575 kg Constitutional Constitutional: no acute distress, thin and chronically ill appearing *Routine HEENT Exam Head: Present normocephalic and atraumatic Eye: Present EOMI and PERRL ENT: Present mucous membranes moist *Routine Neck Exam Neck: Present supple; Absent lymphadenopathy *Routine Respiratory Exam Respiratory: Present CTA bilaterally; Absent rhonchi, wheezes or crackles *Routine Cardiovascular Exam Cardiovascular: Present RRR *Routine Abdominal Exam Abdominal: Present soft and normoactive bowel sounds; Absent tenderness, distended, rebound or guarding *Routine Rectal Exam Patient deferred: visual exam *Routine Exam Patient deferred: penile exam *Routine Extremities Exam Extremities: Present full ROM; Absent cyanosis, clubbing or edema *Routine Skin Exam Skin: Present intact and warm; Absent cyanosis, erythema or rash *Routine Neurological Exam Neurological: Present alert and moving all extremities; Absent altered mental status Comments: Patient oriented to self with name and date of . Knows he is in [facility] at the hospital. Scored 21 out of 30 on Mini-Mental exam. Poor recall. Does not know day date or time. Tried to look at his watch which she did not have on today. Intermittent pauses during discussions. Patient appears to have intermittent catatonia. When asked questions, there would be at least 30sec pause between answers. Answers however were appropriate and correct. Routine Psychiatric Exam Psychiatric: Present cooperative Comments: Flat affect Results Data Completed and Pending Labs on day of discharge: Labs from last 24 hours 12/01/23 12/01/23 11/30/23 05:55 03:35 21:40 WBC 6.7 5.5 D RBC 3.57 L 3.78 L Hgb 13.3 L 14.3 Hct 39.0 L 41.8 L MCV 109.2 H 110.6 H MCH 37.3 H 37.9 H MCHC 34.1 34.3 RDW 13.9 13.9 Plt Count 130 L 128 L MPV 9.5 8.7 Neut % (Auto) 51.2 71.7 Lymph % (Auto) 39.0 20.1 [place] % (Auto) 9.1 7.6 Eos % (Auto) 0.2 0.1 Baso % (Auto) 0.5 0.4 Neut # (Auto) 3.4 4.0 Lymph # (Auto) 2.6 1.1 [place] # (Auto) 0.6 0.4 Eos # (Auto) 0.0 0.0 Baso # (Auto) 0.0 0.0 PT 11.3 INR 1.01 Sodium 140 Potassium 3.9 Chloride 110 H Carbon Dioxide 27 Anion Gap 6.9 BUN 18 D Creatinine 0.70 Estimated Creat Clear 79 Estimated GFR 114 Est GFR ( Amer) 138 Glucose 84 Calcium 9.1 Urine Color Urine Appearance Urine pH Ur Specific [place] Urine Protein Urine Glucose (UA) Urine Ketones Urine Blood Urine Nitrate Urine Bilirubin Urine Urobilinogen Ur Leukocyte Esterase Urine RBC Urine WBC Ur Squamous Epith Cells Urine Bacteria Urine Mucus Gastric Occult Blood Urine Opiates Screen Urine Methadone Screen Ur Barbituates Screen Ur Phencyclidine Scrn Ur Amphetamines Screen U Benzodiazepines Scrn Urine Cocaine Screen U Marijuana (THC) Screen Blood Type O Positive Antibody Screen Negative 11/30/23 11/30/23 20:35 20:00 WBC RBC Hgb Hct MCV MCH MCHC RDW Plt Count MPV Neut % (Auto) Lymph % (Auto) [place] % (Auto) Eos % (Auto) Baso % (Auto) Neut # (Auto) Lymph # (Auto) [place] # (Auto) Eos # (Auto) Baso # (Auto) PT INR Sodium Potassium Chloride Carbon Dioxide Anion Gap BUN Creatinine Estimated Creat Clear Estimated GFR Est GFR ( Amer) Glucose Calcium Urine Color Yellow Urine Appearance Clear Urine pH 7.0 Ur Specific [place] 1.025 Urine Protein 1+ Urine Glucose (UA) Negative Urine Ketones 2+ Urine Blood 3+ Urine Nitrate Negative Urine Bilirubin Negative Urine Urobilinogen 0.2 Ur Leukocyte Esterase Negative Urine RBC 5-10 Urine WBC 3-5 Ur Squamous Epith Cells 3-5 Urine Bacteria 1+ Urine Mucus 1+ Gastric Occult Blood Positive Urine Opiates Screen Negative Urine Methadone Screen Negative Ur Barbituates Screen Negative Ur Phencyclidine Scrn Negative Ur Amphetamines Screen Negative U Benzodiazepines Scrn Negative Urine Cocaine Screen Negative U Marijuana (THC) Screen Negative Blood Type Antibody Screen DS: Diagnosis Discharge Diagnosis (1) Upper GI bleed: Status: Acute Code(s): K92.2 - Gastrointestinal hemorrhage, unspecified Meds Home Medications and Allergies Home Medications Medication Instructions Recorded Confirmed Type divalproex 500 mg tablet,extended 500 mg PO BID 07/01/23 12/01/23 History release 24 hr hydroxyzine pamoate 50 mg capsule 50 mg PO HS 07/01/23 12/01/23 History melatonin 3 mg tablet 3 mg PO HS 07/01/23 12/01/23 History thiamine HCl (vitamin B1) 100 mg 100 mg PO DAILY 07/01/23 12/01/23 History tablet (Vitamin B-1) cyanocobalamin (vitamin B-12) 100 100 mcg PO DAILY 12/01/23 12/01/23 History mcg tablet pantoprazole 40 mg tablet,delayed 40 mg PO DAILY #30 tabs 12/01/23 Rx release risperidone 3 mg tablet 3 mg PO BID 12/01/23 12/01/23 History New Prescriptions to Start Prescriptions: pantoprazole Tom Rapp Allergies Allergy/AdvReac Type Severity Reaction Status Date / Time No Known Allergies Allergy Verified 11/29/23 18:45 Discharge Plan Disposition Patient Disposition: Home, Self-Care Condition: Fair Follow up Plan Follow up with: Bernard Blank MD [Staff Physician] - 12/15/23 9:30 am Karl Lynch, YOHANA [Primary Care Provider] - 2 days (needs repeat CBC, CMP in 2-3 days) Prescriptions/Medication Reconciliation: New pantoprazole 40 mg tablet,delayed release (DR/EC) 40 mg PO DAILY Qty: 30 0RF Continued thiamine HCl (vitamin B1) [Vitamin B-1] 100 mg Tablet 100 mg PO DAILY hydroxyzine pamoate 50 mg capsule 50 mg PO HS melatonin 3 mg Tablet 3 mg PO HS divalproex 500 mg tablet extended release 24 hr 500 mg PO BID cyanocobalamin (vitamin B-12) 100 mcg Tablet 100 mcg PO DAILY risperidone 3 mg tablet 3 mg PO BID Problem Reconciliation Problems Reviewed?: Yes Patient Discharge Instructions ACTIVITY: Continue current activity DIET: continue same diet Patient Instructions: DI for Gastrointestinal Bleeding Providers Primary Care Provider: Karl Lynch Admit Provider: Tom Rapp Attending Provider: Tom Rapp
--- NOTE | 2023-12-01 16:25 | PC.NURSE ---
gave report to umberto at [facility] and she said pt's ride will be here around 1700
== END 2023-12-01 17:14 | disposition home or self-care (01) ==
LOC: ER 15:15 → 2ND 22:02
PROVIDERS: Emergency Medicine; Nurse Practitioner Acute Care; Physician Assistant; Admitting Provider Internal Medicine Adolescent Medicine; Emergency Provider Student in an Organized Health Care Education/Training Program; PCP Nurse Practitioner Acute Care; Visit Provider Internal Medicine Adolescent Medicine
DX: K92.2 Gastrointestinal hemorrhage, unspecified (principal); F06.1 Catatonic disorder due to known physiological condition; Z79.899 Other long term (current) drug therapy; F17.210 Nicotine dependence, cigarettes, uncomplicated; F20.2 Catatonic schizophrenia
CPT/HCPCS: 36415; 74177; 80048; 80053; 80165; 80307; 81001; 82272; 85025; 85610; 86850; 93005; 97163; 97166; 99221; 99285; G0328; G0378; J0696; J2405; J2550; J7120; Q9967

== ENCOUNTER 2023-12-07 06:15 | Emergency (ER) | payer MEDICARE, SELFPAY ==
[2023-12-07 06:15] VITALS: BP 108/65; PULSE 60; RESP 18; TEMP 36.6; O2SAT 96
[2023-12-07 06:30] VITALS: BP 133/78; PULSE 61; O2SAT 97
--- NOTE | 2023-12-07 06:30 | ED_ITS ---
Discharge Plan Disposition Patient Disposition: Home, Self-Care Prescriptions Prescriptions: New benztropine 1 mg tablet 1 mg PO TID Qty: 90 0RF No Action thiamine HCl (vitamin B1) [Vitamin B-1] 100 mg Tablet 100 mg PO DAILY hydroxyzine pamoate 50 mg capsule 50 mg PO HS melatonin 3 mg Tablet 3 mg PO HS divalproex 500 mg tablet extended release 24 hr 500 mg PO BID cyanocobalamin (vitamin B-12) 100 mcg Tablet 100 mcg PO DAILY risperidone 3 mg tablet 3 mg PO BID pantoprazole 40 mg tablet,delayed release (DR/EC) 40 mg PO DAILY Qty: 30 0RF Activity Restrictions/Add. Instructions Additional Instructions/Restrictions: I am concerned that you could be having extraparametal side effects from your antipsychotic medications. Please begin taking benztropine as prescribed. It may need to be adjusted by your primary provider. Clinical Impressions Clinical Impression: Muscle twitching, Slow rate of speech Print Language Print Language: Kazakh Discharge ED Provider: Angelito Cabrera General Adult HPI General Chief complaint: Dizziness Stated complaint: can't control nerves, dizziness Time Seen by Provider: 12/07/23 06:15 History of Present Illness HPI narrative: 63-year-old male with history of schizoaffective disorder, intermittent catatonia, resident at [facility] presents from [facility] for twitching. He reports that he has been twitching for the last several weeks and that is the primary reason he is calm. He has somewhat slowed verbal responses to questions but is alert and oriented if you allow him time to answer question. He was admitted here about a week ago and was discharged after overnight evaluation. He had the same slowed responses at that time. He denies any other acute concerns to me at this time. Denies any recent fever or illness. Denies any chest pain abdominal pain shortness of breath. Reports he is able to walk and is eating and drinking normally. Related Data Home Medications ?Medication ?Instructions ?Recorded ?Confirmed divalproex 500 mg tablet,extended 500 mg PO BID 07/01/23 12/01/23 release 24 hr hydroxyzine pamoate 50 mg capsule 50 mg PO HS 07/01/23 12/01/23 melatonin 3 mg tablet 3 mg PO HS 07/01/23 12/01/23 thiamine HCl (vitamin B1) 100 mg 100 mg PO DAILY 07/01/23 12/01/23 tablet (Vitamin B-1) cyanocobalamin (vitamin B-12) 100 100 mcg PO DAILY 12/01/23 12/01/23 mcg tablet risperidone 3 mg tablet 3 mg PO BID 12/01/23 12/01/23 Previous Rx's ?Medication ?Instructions ?Recorded pantoprazole 40 mg tablet,delayed 40 mg PO DAILY #30 tabs 12/01/23 release benztropine 1 mg tablet 1 mg PO TID #90 tabs 12/07/23 Allergies Allergy/AdvReac Type Severity Reaction Status Date / Time No Known Allergies Allergy Verified 11/29/23 18:45 [facility] Disclaimer: The information contained in this section may have been updated after the patient was seen, as this information can be updated by other users. Medical History Epilepsy Family History Other No significant family history Social History (Updated 11/30/23 @ 23:09 by Yudi Rubin RN) Smoking Status: Current every day smoker alcohol intake: never current occupational status: retired Travel in the last 8 weeks: None ROS Obtained: Yes All systems reviewed & no additional complaints except as documented Physical Exam General General appearance: alert and in no apparent distress Head Head exam: atraumatic and normocephalic Eye Eye exam: Present normal appearance, PERRL and EOMI ENT ENT exam: Present normal oropharynx and normal external ear exam Neck Neck exam: Present normal inspection and full ROM Chest Chest inspection: Present normal inspection and symmetric chest wall rise; Absent tenderness Respiratory Respiratory exam: Present normal lung sounds bilaterally; Absent respiratory distress Cardiovascular Cardiovascular exam: Present regular rate and normal rhythm Abdominal Exam Abdominal exam: Present soft; Absent distention, tenderness or guarding Extremities Exam Extremities exam: Present normal inspection; Absent edema or joint swelling Back Exam Back exam: Present normal inspection; Absent tenderness Neurological Exam Neurological exam: Present alert, oriented X3 and other (Intermittent jerking activity of the arms. Patient was observed from outside the room and did not have any activity. Upon approaching and engaging with the patient, the activity increased dramatically in amount); Absent motor sensory deficit Psychiatric Psychiatric exam: Present flat affect Skin Skin exam: Present warm, dry and normal color Lymphatic Lymphatic Findings: no adenopathy Medical Decision Making Medical Records Medical records reviewed: Yes I reviewed the patient's medical records. David Inquiry Pt receiving controlled substance: No David was queried for this patient: No Vital Signs: 12/07/23 06:15 Temperature 98 F Temperature Source Oral Pulse Rate [Right Brachial] 60 Respiratory Rate 18 Blood Pressure [Right Arm] 108/65 L Blood Pressure Mean [Right Arm] 79 02 Sat by Pulse Oximetry 96 Oxygen Delivery Method Room Air Lab Data Lab results reviewed: Yes I reviewed the patient's lab results. Orders (Tests/Meds): ED MEDICATIONS Discontinued Medications Generic Name Dose Route Start Last Admin Trade Name Freq PRN Reason Stop Dose Admin Benztropine Mesylate 1 mg 12/07/23 06:26 12/07/23 06:41 Benztropine 2mg/2ml Vial IM 12/07/23 06:27 Not Given ONCE ONE Benztropine Mesylate 1 mg 12/07/23 06:30 12/07/23 06:41 Benztropine 1mg Tablet PO 12/07/23 06:31 1 mg ONCE ONE Administration Medical Decision Narrative: 63-year-old male with history of chronic psychiatric condition requiring risperidone, reported history of epilepsy, recent brief hospital admission presents for reported weeks of twitching. History was obtained via interactive discussion with patient. On arrival, patient is afebrile, hemodynamically stable, generally well, slow to answer questions but alert and oriented x 4, moving all extremities spontaneously. Full physical exam performed and significant for intermittent twitching of the arms and eyes. Patient was observed for outside of the room, these episodes were minimal/nonexistent. Upon engaging in conversation with the patient, these became significantly more prominent and worse. Exam is not consistent with epilepsy. Differential includes but is not limited to extrapyramidal side effects from risperidone, psychiatric illness, epilepsy. Low concern for emergent pathology at this time. Patient was given benztropine for possible extrapyramidal side effects of his risperidone. He was discharged in stable condition with prescription for benztropine. Return precautions given. Procedures Risk/Benefits of Procedure(s) Were Explained: Yes Critical Care Critical Care Time Critical Care Time: No
[2023-12-07] MEDS: BENZTROPINE 1MG TABLET 1 MG PO (06:41)
[2023-12-07 07:27] VITALS: BP 144/127; PULSE 66; O2SAT 97
--- NOTE | 2023-12-07 07:35 | PC.NURSE ---
ATTEMPTED TO CALL [facility] X 2,NO ANSWER. SPOKE WITH [facility] STAFF, WILL ASSIST WITH TRANSFER.
[2023-12-07] MEDS: diphenhydrAMINE 25MG CAPSULE 25 MG PO (07:38)
[2023-12-07 07:40] VITALS: BP 133/73; PULSE 66; RESP 18; TEMP 36.8; O2SAT 98
--- NOTE | 2023-12-07 07:47 | PC.NURSE ---
SPOKE WITH [facility] STAFF, SOMEONE WILL COME PICK-UP PT
== END 2023-12-07 07:55 | disposition home or self-care (01) ==
PROVIDERS: Emergency Provider Emergency Medicine; PCP Nurse Practitioner Acute Care
DX: F25.9 Schizoaffective disorder, unspecified (principal); G25.9 Extrapyramidal and movement disorder, unspecified

== ENCOUNTER 2023-12-07 21:47 | Emergency (ER) | payer MEDICARE, SELFPAY ==
--- NOTE | 2023-12-07 21:46 | ED_ITS ---
<Statement entered by Lora Silva DO - 12/07/23 23:02> I was consulted by the MONISHA, and we discussed the complexity of the problems being addressed. I approved the treatment and management plan for this patient's care in the emergency department, thus performing a substantive portion of the medical decision making. Lora Silva DO Discharge Plan Disposition Patient Disposition: Home, Self-Care Condition: Good Prescriptions Prescriptions: No Action thiamine HCl (vitamin B1) [Vitamin B-1] 100 mg Tablet 100 mg PO DAILY hydroxyzine pamoate 50 mg capsule 50 mg PO HS melatonin 3 mg Tablet 3 mg PO HS divalproex 500 mg tablet extended release 24 hr 500 mg PO BID cyanocobalamin (vitamin B-12) 100 mcg Tablet 100 mcg PO DAILY risperidone 3 mg tablet 3 mg PO BID pantoprazole 40 mg tablet,delayed release (DR/EC) 40 mg PO DAILY Qty: 30 0RF benztropine 1 mg tablet 1 mg PO TID Qty: 90 0RF Referrals Follow up/Referrals: Karl Lynch APRN [Primary Care Provider] - See instructions Activity Restrictions/Add. Instructions Additional Instructions/Restrictions: Follow-up with your PCP in 48 hours. Return to ER for any worsening signs or symptoms. Clinical Impressions Clinical Impression: Fall Qualifiers: Encounter type: initial encounter Qualified Code(s): W19.XXXA - Unspecified fall, initial encounter Instructions Patient Instructions: How to Prevent Falls Print Language Print Language: [place] Discharge ED Provider: Angelito Cabrera General Adult HPI <KAILEY Chang - Last Filed: 12/07/23 23:00> General Chief complaint: Fall Stated complaint: fall from standing position Time Seen by Provider: 12/07/23 21:50 History of Present Illness HPI narrative: Patient presents for evaluation of possible fall. Patient lives at [facility] and was unnoticed for period of time. Staff found the patient sitting in the bathroom. There was no visible evidence of trauma however patient is unreliable historian due to schizophrenia with intermittent catatonia. Patient himself states he hurts around his butt hole but denies pain headache altered sensorium. Patient is at his functional baseline currently. He is oriented to person place and circumstance. Related Data Home Medications ?Medication ?Instructions ?Recorded ?Confirmed divalproex 500 mg tablet,extended 500 mg PO BID 07/01/23 12/01/23 release 24 hr hydroxyzine pamoate 50 mg capsule 50 mg PO HS 07/01/23 12/01/23 melatonin 3 mg tablet 3 mg PO HS 07/01/23 12/01/23 thiamine HCl (vitamin B1) 100 mg 100 mg PO DAILY 07/01/23 12/01/23 tablet (Vitamin B-1) cyanocobalamin (vitamin B-12) 100 100 mcg PO DAILY 12/01/23 12/01/23 mcg tablet risperidone 3 mg tablet 3 mg PO BID 12/01/23 12/01/23 Previous Rx's ?Medication ?Instructions ?Recorded pantoprazole 40 mg tablet,delayed 40 mg PO DAILY #30 tabs 12/01/23 release benztropine 1 mg tablet 1 mg PO TID #90 tabs 12/07/23 Allergies Allergy/AdvReac Type Severity Reaction Status Date / Time No Known Allergies Allergy Verified 11/29/23 18:45 [facility] <KAILEY Chang - Last Filed: 12/07/23 23:00> [facility] Disclaimer: The information contained in this section may have been updated after the patient was seen, as this information can be updated by other users. Medical History Epilepsy Family History Other No significant family history Social History (Updated 11/30/23 @ 23:09 by Yudi Rubin RN) Smoking Status: Unknown if ever smoked alcohol intake: never current occupational status: retired Travel in the last 8 weeks: None <KAILEY Chang - Last Filed: 12/07/23 23:00> ROS Obtained: Yes Systems reviewed as appropriate & no additional complaints except as documented Physical Exam <KAILEY Chang - Last Filed: 12/07/23 23:00> General General appearance: alert and in no apparent distress Head Head exam: atraumatic and normal inspection Eye Eye exam: Present normal appearance and EOMI ENT ENT exam: Present normal exam and normal oropharynx Neck Neck exam: Present normal inspection; Absent tenderness Chest Chest inspection: Present normal inspection and symmetric chest wall rise Respiratory Respiratory exam: Present normal lung sounds bilaterally; Absent accessory muscle use Cardiovascular Cardiovascular exam: Present regular rate and normal rhythm Abdominal Exam Abdominal exam: Present soft and normal bowel sounds; Absent tenderness Extremities Exam Extremities exam: Present normal inspection and full ROM; Absent tenderness Back Exam Back exam: Present normal inspection and full ROM; Absent tenderness Neurological Exam Neurological exam: Present alert, oriented X3 and CN II-XII intact Psychiatric Psychiatric exam: Present normal mood and flat affect Skin Skin exam: Present warm, dry and normal color Medical Decision Making <KAILEY Chang - Last Filed: 12/07/23 23:00> Medical Records Medical records reviewed: Yes I reviewed the patient's medical records. David Inquiry Pt receiving controlled substance: No Vital Signs: 12/07/23 21:47 12/07/23 21:52 12/07/23 23:21 Temperature 99.1 F 98.0 F Temperature Source Oral Oral Pulse Rate 60 66 Pulse Rate [Left Radial] 97 H Respiratory Rate 18 16 Blood Pressure 116/64 104/64 L Blood Pressure [Right Arm] 116/64 Blood Pressure Mean [Right Arm] 81 Blood Pressure Source Automatic Cuff Blood Pressure Source [Right Arm] Automatic Cuff Blood Pressure Position Sitting Blood Pressure Position [Right Arm] Sitting 02 Sat by Pulse Oximetry 97 96 Oxygen Delivery Method Room Air Room Air 12/07/23 23:23 Temperature Temperature Source Pulse Rate 66 Pulse Rate [Left Radial] Respiratory Rate Blood Pressure 104/64 L Blood Pressure [Right Arm] Blood Pressure Mean [Right Arm] Blood Pressure Source Blood Pressure Source [Right Arm] Blood Pressure Position Blood Pressure Position [Right Arm] 02 Sat by Pulse Oximetry 97 Oxygen Delivery Method Lab Data Lab results reviewed: Yes I reviewed the patient's lab results. Orders (Tests/Meds): ORDERS Category Date Time Status CT cervical spine wo con Stat Cat Scan 12/07/23 21:[address] head/brain wo con Stat Cat Scan 12/07/23 21:51 Completed Pelvis XR 1-2 views [XR pelvis 1-2V] Stat Exams 12/07/23 21:52 Completed Medical Decision Narrative: In summary patient is a 63-year-old male who presents to the emergency department for evaluation of possible fall. Patient is hemodynamically stable upon arrival, afebrile. Physical exam is unremarkable and nonfocal although patient reports he has pain around the buttocks there is no evidence of ecchymosis. Patient is nontender in the dorsal spine to palpation. Patient is able to ambulate independently though he does need assistance. Glascow coma score is currently 15. Differential diagnosis includes fall versus syncope versus asthenia CHI versus C-spine injury etc considering patient is a unreliable historian. Initial workup will be conducted with CT scan of the head without contrast C-spine and pelvis films. Initial interventions include acetaminophen. Initial workup reviewed by me shows no acute fractures C-spine injury or intracranial abnormality prior to radiology read. Upon repeat evaluation no worsening symptoms and is tolerating p.o. Given this patient is appropriate for discharge with close follow-up with his PCP <Angelito Cabrera MD - Last Filed: 12/07/23 23:31> Vital Signs: 12/07/23 21:47 12/07/23 21:52 12/07/23 23:21 Temperature 99.1 F 98.0 F Temperature Source Oral Oral Pulse Rate 60 66 Pulse Rate [Left Radial] 97 H Respiratory Rate 18 16 Blood Pressure 116/64 104/64 L Blood Pressure [Right Arm] 116/64 Blood Pressure Mean [Right Arm] 81 Blood Pressure Source Automatic Cuff Blood Pressure Source [Right Arm] Automatic Cuff Blood Pressure Position Sitting Blood Pressure Position [Right Arm] Sitting 02 Sat by Pulse Oximetry 97 96 Oxygen Delivery Method Room Air Room Air 12/07/23 23:23 Temperature Temperature Source Pulse Rate 66 Pulse Rate [Left Radial] Respiratory Rate Blood Pressure 104/64 L Blood Pressure [Right Arm] Blood Pressure Mean [Right Arm] Blood Pressure Source Blood Pressure Source [Right Arm] Blood Pressure Position Blood Pressure Position [Right Arm] 02 Sat by Pulse Oximetry 97 Oxygen Delivery Method Orders (Tests/Meds): ORDERS Category Date Time Status CT cervical spine wo con Stat Cat Scan 12/07/23 21:[address] head/brain wo con Stat Cat Scan 12/07/23 21:51 Completed Pelvis XR 1-2 views [XR pelvis 1-2V] Stat Exams 12/07/23 21:52 Completed Medical Decision Narrative: In summary patient is a 63-year-old male who presents to the emergency departm ent for evaluation of possible fall. Patient is hemodynamically stable upon arrival, afebrile. Physical exam is unremarkable and nonfocal although patient reports he has pain around the buttocks there is no evidence of ecchymosis. Patient is nontender in the dorsal spine to palpation. Patient is able to ambulate independently though he does need assistance. Glascow coma score is currently 15. Differential diagnosis includes fall versus syncope versus asthenia CHI versus C-spine injury etc considering patient is a unreliable historian. Initial workup will be conducted with CT scan of the head without contrast C-spine and pelvis films. Initial interventions include acetaminophen. Initial workup reviewed by me shows no acute fractures C-spine injury or intracranial abnormality prior to radiology read. Upon repeat evaluation no worsening symptoms and is tolerating p.o. Given this patient is appropriate for discharge with close follow-up with his PCP I was consulted by the MONISHA, and we discussed the complexity of the problems being addressed. I approved the treatment and management plan for this patient?s care in the Emergency Department, thus performing a substantive portion of the medical decision making. Angelito Cabrera MD Critical Care <KAILEY Chang - Last Filed: 12/07/23 23:00> Critical Care Time Critical Care Time: No
[2023-12-07 21:47] VITALS: BP 116/64; PULSE 97; RESP 18; TEMP 37.3; O2SAT 97
--- NOTE | 2023-12-07 21:51 | CT_ITS ---
PROCEDURE INFORMATION: Exam: CT Cervical Spine Without Contrast Exam date and time: 12/07/2023 10:11 PM Age: 63 years old Clinical indication: Injury or trauma; Fall TECHNIQUE: Imaging protocol: Computed tomography of the cervical spine without contrast. Radiation optimization: All CT scans at this facility use at least one of these dose optimization techniques: automated exposure control; mA and/or kV adjustment per patient size (includes targeted exams where dose is matched to clinical indication); or iterative reconstruction. COMPARISON: CT CERVICAL SPINE WO CON 07/01/2023 10:34 PM FINDINGS: Bones: Bone mineralization is decreased, suggestive of osteopenia. No acute cervical spine fracture is identified. There is mild reversal of the normal cervical lordosis. Severe degenerative changes of the cervical spine are present. There is no severe spinal canal stenosis. Multilevel neural foraminal narrowing from uncinate spurring and facet arthropathy is noted. Lungs: The lung apices are clear. Vasculature: Atherosclerotic calcifications are present at the carotid bifurcations. Soft tissues: Unremarkable. IMPRESSION: 1. No acute cervical spine fracture. 2. Chronic findings as discussed above.
--- NOTE | 2023-12-07 21:51 | CT_ITS ---
PROCEDURE INFORMATION: Exam: CT Head Without Contrast Exam date and time: 12/07/2023 10:09 PM Age: 63 years old Clinical indication: Injury or trauma; Fall TECHNIQUE: Imaging protocol: Computed tomography of the head without contrast. Radiation optimization: All CT scans at this facility use at least one of these dose optimization techniques: automated exposure control; mA and/or kV adjustment per patient size (includes targeted exams where dose is matched to clinical indication); or iterative reconstruction. COMPARISON: CT HEAD/BRAIN WO CON 12/07/2023 10:09 PM FINDINGS: Brain: There is no acute intracranial hemorrhage, cerebral edema, or midline shift. Chronic microvascular ischemic changes are seen in the periventricular white matter. Age-related cerebral and cerebellar volume loss is present. Cerebral ventricles: Mild ex vacuo dilation of the lateral and third ventricles is noted. Paranasal sinuses: There is no acute sinusitis. Tiny mucous retention cysts are noted in the maxillary sinuses. Mastoid air cells: The mastoid air cells are clear. Orbital cavities: The included orbital structures are unremarkable. Bones: Unremarkable. No acute fracture. Soft tissues: Unremarkable. IMPRESSION: 1. No acute intracranial abnormality. 2. Atrophy and chronic deep white matter ischemic changes.
[2023-12-07 21:52] VITALS: BP 116/64; PULSE 60; O2SAT 96
--- NOTE | 2023-12-07 21:52 | XR_ITS ---
PROCEDURE INFORMATION: Exam: XR Pelvis Exam date and time: 12/07/2023 9:55 PM Age: 63 years old Clinical indication: Injury or trauma; Fall TECHNIQUE: Imaging protocol: Radiologic exam of the pelvis. Views: 1 or 2 view. COMPARISON: CT ABDOMEN PELVIS W CON 30/11/2023 21:19 FINDINGS: Bones/joints: No acute fracture or dislocation. Soft tissues: Unremarkable. IMPRESSION: No acute fracture or dislocation.
[2023-12-07 23:21] VITALS: BP 104/64; PULSE 66; RESP 16; TEMP 36.7; O2SAT 96
[2023-12-07 23:23] VITALS: BP 104/64; PULSE 66; O2SAT 97
== END 2023-12-07 23:38 | disposition home or self-care (01) ==
PROVIDERS: Emergency Provider Emergency Medicine; PCP Nurse Practitioner Acute Care
DX: S30.0XXA Contusion of lower back and pelvis, initial encounter (principal); W18.30XA Fall on same level, unspecified, initial encounter; Y92.091 Bathroom in other non-institutional residence as the place of occurrence of the external cause; F25.9 Schizoaffective disorder, unspecified; G25.9 Extrapyramidal and movement disorder, unspecified; Z79.899 Other long term (current) drug therapy
CPT/HCPCS: 70450; 72125; 72170; 99283

== ENCOUNTER 2024-02-07 04:00 | Emergency (ER) | payer MEDICARE, SELFPAY ==
--- NOTE | 2024-02-07 04:03 | CT_ITS ---
PROCEDURE INFORMATION: Exam: CT Cervical Spine Without Contrast Exam date and time: 02/07/2024 4:42 AM Age: 63 years old Clinical indication: Injury or trauma; Fall TECHNIQUE: Imaging protocol: Computed tomography of the cervical spine without contrast. Radiation optimization: All CT scans at this facility use at least one of these dose optimization techniques: automated exposure control; mA and/or kV adjustment per patient size (includes targeted exams where dose is matched to clinical indication); or iterative reconstruction. COMPARISON: CT CERVICAL SPINE WO CON 12/07/2023 10:11 PM FINDINGS: Bones: Loss of normal curvature of the spine, alignment of the vertebral bodies is grossly normal. No evidence of acute compression fracture or deformity in the cervical spine. No acute fracture involving the vertebral bodies or their posterior elements. Discs/Spinal canal/Neural foramina: Chronic degenerative changes in the visualized cervical spine. Soft tissues: Pre-and paravertebral soft tissues are grossly normal. IMPRESSION: Chronic degenerative changes without an acute bony cervical spine injury or abnormality. COMMENTS: Recommend followup with MRI if clinically suspicion for discoligamentous/soft tissue or cord abnormality.
--- NOTE | 2024-02-07 04:03 | CT_ITS ---
PROCEDURE INFORMATION: Exam: CT Head Without Contrast Exam date and time: 02/07/2024 4:40 AM Age: 63 years old Clinical indication: Injury or trauma; Fall; Additional info: Fall head trauma TECHNIQUE: Imaging protocol: Computed tomography of the head without contrast. Radiation optimization: All CT scans at this facility use at least one of these dose optimization techniques: automated exposure control; mA and/or kV adjustment per patient size (includes targeted exams where dose is matched to clinical indication); or iterative reconstruction. COMPARISON: CT HEAD/BRAIN WO CON 02/07/2024 4:40 AM FINDINGS: Brain: Chronic microvascular ischemic disease without acute intraparenchymal hemorrhage and no obvious acute ischemic stroke. No intra-or extra-axial fluid collection, no supra-or infratentorial mass, no mass effect or midline shift. Cerebral ventricles: Ventriculomegaly with mildly dilated/prominent sulci and basal cisterns. Paranasal sinuses: No significant mucoperiosteal thickening in the visualized paranasal sinuses. Mastoid air cells: No mastoid effusion. Bones: Visualized skull bones are grossly normal. Soft tissues: RIGHT posterolateral scalp hematoma and laceration. IMPRESSION: 1. Chronic microvascular disease and generalized atrophy without acute intracranial abnormality. 2. No evidence of acute hemorrhage, mass lesion or obvious acute ischemic infarction.
--- NOTE | 2024-02-07 04:03 | XR_ITS ---
PROCEDURE INFORMATION: Exam: XR Right Hip Exam date and time: 02/07/2024 4:40 AM Age: 63 years old Clinical indication: Injury or trauma; Fall; Other: Pain TECHNIQUE: Imaging protocol: Radiologic exam of the right hip. Views: 2 or 3 views hip with pelvis when performed. COMPARISON: CR XR PELVIS 1-2V 12/07/2023 9:55 PM FINDINGS: Bones/joints: Unremarkable. No acute fracture. Soft tissues: Unremarkable. IMPRESSION: No acute findings.
--- NOTE | 2024-02-07 04:03 | XR_ITS ---
PROCEDURE INFORMATION: Exam: XR Chest Exam date and time: 02/07/2024 4:40 AM Age: 63 years old Clinical indication: Injury or trauma; Fall; Other: Pain TECHNIQUE: Imaging protocol: Radiologic exam of the chest. Views: 1 view. COMPARISON: CT CERVICAL SPINE WO CON 12/07/2023 10:11 PM FINDINGS: Lungs: Unremarkable. No consolidation. Pleural spaces: Unremarkable. No pleural effusion. No pneumothorax. Heart/Mediastinum: Unremarkable. No cardiomegaly. Bones/joints: Unremarkable. IMPRESSION: No acute findings.
--- NOTE | 2024-02-07 04:03 | XR_ITS ---
PROCEDURE INFORMATION: Exam: XR Left Femur Exam date and time: 02/07/2024 4:40 AM Age: 63 years old Clinical indication: Injury or trauma; Fall; Other: Pain TECHNIQUE: Imaging protocol: Radiologic exam of the left femur. Views: 2 views. COMPARISON: CR XR FEMUR LT 2V 02/07/2024 4:40 AM FINDINGS: Bones/joints: Unremarkable. No acute fracture. Soft tissues: Unremarkable. IMPRESSION: No acute findings.
--- NOTE | 2024-02-07 04:03 | XR_ITS ---
PROCEDURE INFORMATION: Exam: XR Right Femur Exam date and time: 02/07/2024 4:40 AM Age: 63 years old Clinical indication: Injury or trauma; Fall; Other: Pain TECHNIQUE: Imaging protocol: Radiologic exam of the right femur. Views: 2 views. COMPARISON: CR XR FEMUR RT 2V 02/07/2024 4:40 AM FINDINGS: Bones/joints: Unremarkable. No acute fracture. Soft tissues: Unremarkable. IMPRESSION: No acute findings.
--- NOTE | 2024-02-07 04:03 | XR_ITS ---
PROCEDURE INFORMATION: Exam: XR Left Hip Exam date and time: 02/07/2024 4:40 AM Age: 63 years old Clinical indication: Injury or trauma; Fall; Other: Pain TECHNIQUE: Imaging protocol: Radiologic exam of the left hip. Views: 2 or 3 views hip with pelvis when performed. COMPARISON: CR XR PELVIS 1-2V 12/07/2023 9:55 PM FINDINGS: Bones/joints: Unremarkable. No acute fracture. Soft tissues: Unremarkable. IMPRESSION: No acute findings.
[2024-02-07 04:06] VITALS: BP 106/66; PULSE 58; RESP 16; TEMP 36.6; O2SAT 97; BMI 22.4
--- NOTE | 2024-02-07 04:59 | ED_ITS ---
Discharge Plan Disposition Patient Disposition: Home, Self-Care Prescriptions Prescriptions: No Action donepezil 5 mg tablet 5 mg PO DAILY risperidone 4 mg tablet 4 mg PO DAILY hydroxyzine pamoate 50 mg capsule 50 mg PO DAILY pantoprazole 40 mg tablet,delayed release (DR/EC) 40 mg PO DAILY divalproex 500 mg tablet extended release 24 hr 1,000 mg PO DAILY benztropine 1 mg tablet 1 mg PO TID Referrals Follow up/Referrals: Provider,Referral, MD [Primary Care Provider] - See instructions Activity Restrictions/Add. Instructions Additional Instructions/Restrictions: Please follow-up with your primary care provider. Please return to the emergency department if you develop any new or worsening symptoms or become concerned for your health. Please have cher removed in 7 to 10 days. Clinical Impressions Clinical Impression: Fall, Laceration of scalp Print Language Print Language: [place] Citizen Discharge ED Provider: Angelito Cabrera General Adult HPI General Chief complaint: Fall Stated complaint: fall with lac to scalp Time Seen by Provider: 02/07/24 04:03 Mode of Arrival: EMS Source of Information: Patient and EMS Limitations: Altered Mental Status Description of Symptoms (Recalled from ER Triage Doc. by RN): Patient presents to ER with complaints of a fall. States he went unconcious and fell. He struck the top right portion of his head and has a laceration. He also complains of pelvic pain. History of Present Illness HPI narrative: 63-year-old male with history of catatonia bradycardia presents from [facility] for fall. He is not sure why he fell exactly. He struck his head and reports loss of consciousness. The attendants at [facility] report that he has been a bit different than normal for the last couple of weeks. He has seen a psychiatrist and was recently started on Haldol reportedly. Patient denies any headache neck pain chest pain back pain. Does report some pain in his pelvis. Related Data Home Medications ?Medication ?Instructions ?Recorded ?Confirmed benztropine 1 mg tablet 1 mg PO TID 02/07/24 02/07/24 divalproex 500 mg tablet,extended 1,000 mg PO DAILY 02/07/24 02/07/24 release 24 hr donepezil 5 mg tablet 5 mg PO DAILY 02/07/24 02/07/24 hydroxyzine pamoate 50 mg capsule 50 mg PO DAILY 02/07/24 02/07/24 pantoprazole 40 mg tablet,delayed 40 mg PO DAILY 02/07/24 02/07/24 release risperidone 4 mg tablet 4 mg PO DAILY 02/07/24 02/07/24 Allergies Allergy/AdvReac Type Severity Reaction Status Date / Time No Known Allergies Allergy Verified 11/29/23 18:45 [facility] Disclaimer: The information contained in this section may have been updated after the patient was seen, as this information can be updated by other users. Medical History Epilepsy Family History Other No significant family history Social History (Updated 11/30/23 @ 23:09 by Yudi Rubin RN) Smoking Status: Never smoker alcohol intake: never current occupational status: retired Travel in the last 8 weeks: None ROS Obtained: Yes All systems reviewed & no additional complaints except as documented Physical Exam General General appearance: alert and in no apparent distress Head Head exam: normocephalic and other (Linear laceration to the right occipital scalp, hemostatic) Eye Eye exam: Present normal appearance, PERRL and EOMI ENT ENT exam: Present normal oropharynx and normal external ear exam Neck Neck exam: Present normal inspection and full ROM Chest Chest inspection: Present normal inspection and symmetric chest wall rise; Absent tenderness Respiratory Respiratory exam: Present normal lung sounds bilaterally; Absent respiratory distress Cardiovascular Cardiovascular exam: Present regular rate and normal rhythm Abdominal Exam Abdominal exam: Present soft; Absent distention, tenderness or guarding Extremities Exam Extremities exam: Present normal inspection and tenderness (Mild tenderness to the pelvis and femurs); Absent edema or joint swelling Back Exam Back exam: Present normal inspection; Absent tenderness Neurological Exam Neurological exam: Present alert, oriented X3 and other (Tremorous) Psychiatric Psychiatric exam: Present flat affect Skin Skin exam: Present warm, dry and normal color Lymphatic Lymphatic Findings: no adenopathy Medical Decision Making Medical Records Medical records reviewed: Yes I reviewed the patient's medical records. Screening: Per USPSTF and CDC recommendations, given the prevalence of disease in our region, it is our hospital?s policy to screen for HIV and viral Hepatitis for all patients aged 18 and over and those with ongoing risk factors. David Inquiry Pt receiving controlled substance: No David was queried for this patient: No Vital Signs: 02/07/24 04:06 02/07/24 05:38 02/07/24 06:25 Temperature 97.9 F 98.1 F Temperature Source Oral Oral Pulse Rate 64 60 Pulse Rate [Right Radial] 58 L Respiratory Rate 16 12 16 Blood Pressure 107/60 L 114/68 Blood Pressure [Right Arm] 106/66 L Blood Pressure Mean 68 Blood Pressure Mean [Right Arm] 79 Blood Pressure Source Automatic Cuff Blood Pressure Source [Right Arm] Automatic Cuff Blood Pressure Position Supine Blood Pressure Position [Right Arm] Supine 02 Sat by Pulse Oximetry 97 98 Oxygen Delivery Method Room Air Room Air Room Air Lab Data Lab results reviewed: Yes I reviewed the patient's lab results. Lab Results 02/07/24 05:34: WBC 4.8, RBC 3.73 L, Hgb 13.4 L, Hct 41.0 L, MCV 110.1 H, MCH 36.0 H, MCHC 32.6, RDW 13.6, Plt Count 145, MPV 8.0, Neut % (Auto) 51.5, Lymph % (Auto) 36.3, [place] % (Auto) 10.3 H, Eos % (Auto) 1.4, Baso % (Auto) 0.5, Neut # (Auto) 2.5, Lymph # (Auto) 1.7, [place] # (Auto) 0.5, Eos # (Auto) 0.1, Baso # (Auto) 0.0, Sodium 140, Potassium 4.8, Chloride 105, Carbon Dioxide 32 H, Anion Gap 7.8, BUN 17, Creatinine 0.80, Estimated Creat Clear 81, Estimated GFR 98, Est GFR ( Amer) 119, Glucose 82, Calcium 9.7, Total Bilirubin 0.9, AST 35, ALT 23, Alkaline Phosphatase 61, Total Protein 7.2, Albumin 3.8, Globulin 3.4 H, Albumin/Globulin Ratio 1.1, Urine Color Yellow, Urine Appearance Slightly cloudy, Urine pH 5.5, Ur Specific [place] >= 1.030, Urine Protein Trace, Urine Glucose (UA) Negative, Urine Ketones Trace, Urine Blood Trace-i, Urine Nitrate Negative, Urine Bilirubin 1+ A, Urine Urobilinogen 0.2, Ur Leukocyte Esterase Negative 02/07/24 05:34 02/07/24 05:34 Orders (Tests/Meds): ORDERS Category Date Time Status CT cervical spine wo con Stat Cat Scan 02/07/24 04:[address] head/brain wo con Stat Cat Scan 02/07/24 04:03 Completed CXR --portable [XR chest portable] Stat Exams 02/07/24 04:03 Completed Femur XR left 2 views [XR femur LT 2V] Stat Exams 02/07/24 04:03 Completed Femur XR right 2 views [XR femur RT 2V] Stat Exams 02/07/24 04:03 Completed Hip XR left minimum 2 views [XR hip LT 2-3V w/pelvis] Exams 02/07/24 04:03 Completed Stat Hip XR right minimum 2 views [XR hip RT 2-3V w/pelvis] Exams 02/07/24 04:03 Completed Stat CBC w/Auto Diff [Complete Blood Count Auto Diff] Stat Lab 02/07/24 05:34 Completed CMP [Comprehensive Metabolic Panel] Stat Lab 02/07/24 05:34 Completed HIV (1&2) Antibody Rapid Stat Lab 02/07/24 05:34 Received Hep C Ab with Reflex to RNA Stat Lab 02/07/24 05:34 Received UA [Urinalysis and Microscopic] Stat Lab 02/07/24 05:34 Completed Medical Decision Narrative: 63-year-old male with history of psychiatric comorbidities presents for fall from standing with a laceration to the head.. History was obtained via interactive discussion with patient, EMS, chart review, Aramis maguire. On arrival, patient is afebrile, hemodynamically stable, generally well-appearing. He has a laceration to the occipital scalp and some tenderness in the pelvis. Differential includes but is not limited to intracranial trauma intrathoracic trauma intra-abdominal trauma spine trauma extremity trauma. Patient was given Tylenol for symptomatic management and correction of underlying abnormalities. Workup initiated including CT head CT C-spine radiograph of the chest pelvis and bilateral hips and femurs, will also obtain basic labs and urine. On re-evaluation, patient [remains afebrile, HD stable.] Laboratory workup independently interpreted by me and significant for no significant electrolyte derangement, normal renal function, urinalysis without evidence of infection.. Imaging independently interpreted by me and significant for no evidence of intracranial bleeding, cervical fracture, pneumothorax, pelvic fracture. See radiology read for full review of final results. Given patient history, exam and workup, patient's presentation most likely represents fall with scalp laceration. Laceration was repaired at bedside by me using a stapler. Patient is up-to-date on Tdap. He was discharged with instructions regarding wound care and follow up. Procedures Risk/Benefits of Procedure(s) Were Explained: Yes Laceration Laceration 1: Site: scalp Side (If applicable): right Size (cm): 3 Description: linear Depth: simple, single layer Pre-repair: wound explored, irrigated extensively and deep structures intact Skin layer closed with: other (cher) Number of sutures: 2 Critical Care Critical Care Time Critical Care Time: No
[2024-02-07 05:38] VITALS: BP 107/60; PULSE 64; RESP 12; O2SAT 98
[2024-02-07 05:43] LABS: Microscopic, Urine URINE MICROSCOPIC (MICROSCOPIC)
[2024-02-07 05:46] LABS: Basophils % 0.5 % (0.1-2.0); Blood, Urine TRACE-I (Negative); Color,Urine YELLOW (Yellow); Eosinophils # 0.1 K/mm3 (0.0-0.4); Eosinophils % 1.4 % (0.1-12.0); Glucose,Urine (UA) Negative (Negative); Hemoglobin 13.4 g/dL (14.1-18.0); Ketones,Urine TRACE (Negative); Leukocyte Esterase,Urine Negative (Negative); Lymphocytes # 1.7 K/mm3 (0.7-4.5); Lymphocytes % 36.3 % (10-50); Mean Corpuscular HGB Conc 32.6 g/dL (31.8-35.4); Mean Corpuscular Volume 110.1 fl (80-94); Monocytes # 0.5 K/mm3 (0.1-1.0); Monocytes % 10.3 % (1.7-9.3); Neutrophils # 2.5 K/mm3 (1.8-7.8); Neutrophils % 51.5 % (37.0-80.0); Nitrate,Urine Negative (Negative); PH,Urine 5.5 (5.0-8.5); Platelet Count 145 K/mm3 (142-424); Protein,Urine TRACE (Negative); Red Blood Count 3.73 M/mm3 (4.60-6.20); Red Cell Distribution Width 13.6 % (11.5-17.5); Specific Gravity, Urine >= 1.030 (1.005-1.030); Urobilinogen,Urine 0.2 EU/dl (0.2); White Blood Count 4.8 K/mm3 (4.8-10.8)
[2024-02-07 05:49] LABS: Albumin Level 3.8 g/dl (3.5-5.0); Appearance,Urine Slightly Cloudy (Clear); Chloride 105 mmol/L (98-107); Potassium 4.8 mmoL/L (3.5-5.1); Sodium 140 mmol/L (136-145)
[2024-02-07 05:51] LABS: Bilirubin,Urine 1+ (Negative)
[2024-02-07 05:52] LABS: Alanine Aminotransferase 23 U/L (12-78); Albumin/Globulin Ratio 1.1 (1.1-1.8); Alkaline Phosphatase 61 U/L (38-126); Anion Gap 7.8 mEq/L (5-15); Aspartate Amino Transferase 35 U/L (17-59); Bilirubin,Total 0.9 mg/dl (0.2-1.3); Blood Urea Nitrogen 17 mg/dl (9-20); Calcium 9.7 mg/dl (8.4-10.2); Carbon Dioxide 32 mmol/L (22.0-30.0); Creatinine Clearance Estimated 81 mL/min (50-200); Estimated Glomerular Filt Rate 98 ml/min (>60); GFR (African American) 119 ML/MIN (>60); Globulin 3.4 g/dL (1.3-3.2); Glucose 82 mg/dl (74-100); Total Protein,Serum 7.2 g/dl (6.3-8.2)
[2024-02-07 06:25] VITALS: BP 114/68; PULSE 60; RESP 16; TEMP 36.7; O2SAT 98
[2024-02-07 11:07] LABS: HIV (1&2) Antibody Rapid NONREACTIVE (NONREACTIVE)
== END 2024-02-07 06:40 | disposition home or self-care (01) ==
PROVIDERS: Emergency Provider Emergency Medicine
DX: S01.01XA Laceration without foreign body of scalp, initial encounter (principal); R10.2 Pelvic and perineal pain; W19.XXXA Unspecified fall, initial encounter
CPT/HCPCS: 12002; 70450; 71045; 72125; 73502; 73552; 80053; 81001; 85025; 87389; 99283; 99285

== ENCOUNTER 2024-03-03 19:45 | Emergency (ER) | payer MEDICARE, SELFPAY ==
--- NOTE | 2024-03-03 19:44 | HMH.EDGENADL ---
Discharge Plan Disposition Patient Disposition: Home, Self-Care Condition: Good Prescriptions Prescriptions: No Action donepezil 5 mg tablet 5 mg PO DAILY risperidone 4 mg tablet 4 mg PO DAILY hydroxyzine pamoate 50 mg capsule 50 mg PO DAILY pantoprazole 40 mg tablet,delayed release (DR/EC) 40 mg PO DAILY divalproex 500 mg tablet extended release 24 hr 1,000 mg PO DAILY benztropine 1 mg tablet 1 mg PO TID Referrals Follow up/Referrals: Karl Lynch APRN [Primary Care Provider] - See instructions Activity Restrictions/Add. Instructions Additional Instructions/Restrictions: Follow-up with your PCP for any new or worsening symptoms. Return to ER as needed for any new or worsening symptoms. Clinical Impressions Clinical Impression: Encounter for medical screening examination Print Language Print Language: Maltese Discharge ED Provider: Winston Sarah Adult HPI <KAILEY Chang - Last Filed: 03/03/24 22:38> General Chief complaint: Psychiatric Symptoms Stated complaint: Psych eval Time Seen by Provider: 03/03/24 19:57 History of Present Illness HPI narrative: Patient presents via EMS from [facility] on personal-fpc for reported altered mental status. Mr. Dykes has a complicated medical history with schizophrenia and catatonia. Reportedly he was altered today thus EMS was called. We do not have specific way that the patient is altered. On arrival however Mr. Dykes is at his neurologic baseline as I have evaluated him personally on multiple occasions both during his catatonic state and his normal baseline functioning. He is the latter today and he is oriented at his baseline denies any chest pain shortness of breath fever chills hemoptysis hematochezia melena nausea vomiting diarrhea. Related Data Home Medications ?Medication ?Instructions ?Recorded ?Confirmed benztropine 1 mg tablet 1 mg PO TID 02/07/24 02/07/24 divalproex 500 mg tablet,extended 1,000 mg PO DAILY 02/07/24 02/07/24 release 24 hr donepezil 5 mg tablet 5 mg PO DAILY 02/07/24 02/07/24 hydroxyzine pamoate 50 mg capsule 50 mg PO DAILY 02/07/24 02/07/24 pantoprazole 40 mg tablet,delayed 40 mg PO DAILY 02/07/24 02/07/24 release risperidone 4 mg tablet 4 mg PO DAILY 02/07/24 02/07/24 Allergies Allergy/AdvReac Type Severity Reaction Status Date / Time No Known Allergies Allergy Verified 11/29/23 18:45 PFSH <KAILEY Chang - Last Filed: 03/03/24 22:38> [facility] Disclaimer: The information contained in this section may have been updated after the patient was seen, as this information can be updated by other users. Medical History Epilepsy Family History Other No significant family history Social History (Updated 11/30/23 @ 23:09 by Yudi Rubin RN) Smoking Status: Former smoker alcohol intake: never current occupational status: retired Travel in the last 8 weeks: None Other Medical History Have you received the Flu Vaccine for this season: No Have you received the Pneumonia Vaccine: No <KAILEY Chang - Last Filed: 03/03/24 22:38> ROS Obtained: Yes Systems reviewed as appropriate & no additional complaints except as documented Physical Exam <KAILEY Chang - Last Filed: 03/03/24 22:38> General General appearance: alert and in no apparent distress Respiratory Respiratory exam: Present normal lung sounds bilaterally Cardiovascular Cardiovascular exam: Present regular rate Neurological Exam Neurological exam: Present alert; Absent oriented X3 (Patient is oriented to person and circumstance but not place and time which is his functional baseline) Psychiatric Psychiatric exam: Present flat affect Medical Decision Making <KAILEY Chang - Last Filed: 03/03/24 22:38> Medical Records Medical records reviewed: Yes I reviewed the patient's medical records. Screening: Per USPSTF and CDC recommendations, given the prevalence of disease in our region, it is our hospital?s policy to screen for HIV and viral Hepatitis for all patients aged 18 and over and those with ongoing risk factors. David Inquiry Pt receiving controlled substance: No Vital Signs: 03/03/24 19:46 03/03/24 20:22 Temperature 97.8 F 97.8 F Temperature Source Oral Oral Pulse Rate 52 L Pulse Rate [Left Radial] 55 L Respiratory Rate 16 16 Blood Pressure 101/61 L Blood Pressure [Right Arm] 104/52 L Blood Pressure Mean [Right Arm] 69 Blood Pressure Source Automatic Cuff Blood Pressure Source [Right Arm] Automatic Cuff Blood Pressure Position Sitting 02 Sat by Pulse Oximetry 99 Oxygen Delivery Method Room Air Room Air Medical Decision Narrative: In summary patient is a 63-year-old male who presents to the emergency department for evaluation of reported altered mental status. Patient is hemodynamically stable upon arrival, afebrile. Physical exam is unremarkable and nonfocal with the exception of his normal baseline flat affect due to his schizophrenia and catatonia. Given that patient is at his functional baseline without any complaints and he normally can elucidate when he has difficulty, differential of altered mental status was considered but ultimately not pursued as patient has no red flags for alteration of his mental status. Given this and via patient directed discharge patient is appropriate for discharge back to [facility] at his request. <Winston Sarah MD - Last Filed: 03/03/24 22:50> Vital Signs: 03/03/24 19:46 03/03/24 20:22 Temperature 97.8 F 97.8 F Temperature Source Oral Oral Pulse Rate 52 L Pulse Rate [Left Radial] 55 L Respiratory Rate 16 16 Blood Pressure 101/61 L Blood Pressure [Right Arm] 104/52 L Blood Pressure Mean [Right Arm] 69 Blood Pressure Source Automatic Cuff Blood Pressure Source [Right Arm] Automatic Cuff Blood Pressure Position Sitting 02 Sat by Pulse Oximetry 99 Oxygen Delivery Method Room Air Room Air Medical Decision Narrative: In summary patient is a 63-year-old male who presents to the emergency department for evaluation of reported altered mental status. Patient is hemodynamically stable upon arrival, afebrile. Physical exam is unremarkable and nonfocal with the exception of his normal baseline flat affect due to his schizophrenia and catatonia. Given that patient is at his functional baseline without any complaints and he normally can elucidate when he has difficulty, differential of altered mental status was considered but ultimately not pursued as patient has no red flags for alteration of his mental status. Given this and via patient directed discharge patient is appropriate for discharge back to [facility] at his request. I was consulted by the MONISHA, and we discussed the complexity of the problems being addressed.I approved the treatment and management plan for this patient?s care in the Emergency Department, thus performing a substantive portion of the medical decision making.Signed, Winston Sarah MD Critical Care <KAILEY Chang - Last Filed: 03/03/24 22:38> Critical Care Time Critical Care Time: No
[2024-03-03 19:46] VITALS: BP 104/52; PULSE 55; RESP 16; TEMP 36.6; O2SAT 99; BMI 27.3
[2024-03-03 20:22] VITALS: BP 101/61; PULSE 52; RESP 16; TEMP 36.6; O2SAT 99
--- NOTE | 2024-03-03 20:24 | PC.NURSE ---
Attempted to call Aramis Rankin no answer at this time.
== END 2024-03-03 20:29 | disposition home or self-care (01) ==
PROVIDERS: Emergency Provider Emergency Medicine; PCP Nurse Practitioner Acute Care
DX: R41.82 Altered mental status, unspecified (principal); F06.1 Catatonic disorder due to known physiological condition; Z13.9 Encounter for screening, unspecified
CPT/HCPCS: 99282

== ENCOUNTER 2024-03-17 03:53 | Emergency (ER) | payer MEDICARE, SELFPAY ==
[2024-03-17 03:58] VITALS: BP 110/70; PULSE 51; RESP 16; TEMP 36.8; O2SAT 98; BMI 23.6
--- NOTE | 2024-03-17 04:11 | CT_ITS ---
PROCEDURE INFORMATION: Exam: CT Cervical Spine Without Contrast Exam date and time: 03/17/2024 4:29 AM Age: 63 years old Clinical indication: Neck pain; Additional info: Jumped, frontal scalp lac TECHNIQUE: Imaging protocol: Computed tomography of the cervical spine without contrast. Radiation optimization: All CT scans at this facility use at least one of these dose optimization techniques: automated exposure control; mA and/or kV adjustment per patient size (includes targeted exams where dose is matched to clinical indication); or iterative reconstruction. COMPARISON: CT CERVICAL SPINE WO CON 02/07/2024 4:42 AM FINDINGS: Bones/joints: Diffuse cervical spondylosis is noted. Hypertrophic changes of the facet present bilaterally. Discs/Spinal canal/Neural foramina: Narrowing of multiple intervertebral disc spaces are seen. Moderate neural foraminal narrowing is also noted. Lungs: Lung apices are normal. Vasculature: No obvious traumatic injury is seen. Carotid atherosclerosis is present. Soft tissues: Unremarkable. IMPRESSION: 1. No evidence of acute traumatic injury. 2. Diffuse cervical spondylosis. 3. Carotid atherosclerosis is present.
--- NOTE | 2024-03-17 04:11 | XR_ITS ---
PROCEDURE INFORMATION: Exam: XR Left Hand Exam date and time: 03/17/2024 4:17 AM Age: 63 years old Clinical indication: Pain; Hand; Left; Additional info: L hand pain and swelling 5th finger/metacarpal TECHNIQUE: Imaging protocol: Radiologic exam of the left hand. Views: 3 or more views. COMPARISON: No relevant prior studies available. FINDINGS: Bones/joints: Normal. Soft tissues: Normal. IMPRESSION: No acute findings.
--- NOTE | 2024-03-17 04:11 | CT_ITS ---
PROCEDURE INFORMATION: Exam: CT Maxillofacial Without Contrast Exam date and time: 03/17/2024 4:32 AM Age: 63 years old Clinical indication: Jaw pain; Additional info: Jumped, R jaw pain, blood in mouth TECHNIQUE: Imaging protocol: Computed tomography of the face without contrast. Radiation optimization: All CT scans at this facility use at least one of these dose optimization techniques: automated exposure control; mA and/or kV adjustment per patient size (includes targeted exams where dose is matched to clinical indication); or iterative reconstruction. COMPARISON: CT HEAD/BRAIN WO CON 03/17/2024 4:27 AM FINDINGS: Paranasal sinuses: No air-fluid levels. Orbital cavities: Orbits are normal. Globes are unremarkable. Bones: There is a fracture of the right mandible, this is vertically oriented and is seen posteriorly and extends into the mandibular ramus. The fracture is comminuted with multiple parts. Adjacent edema is noted. Soft tissues: Unremarkable. IMPRESSION: Comminuted fracture of the right mandible, this is vertically oriented and is seen posteriorly and extends into the mandibular ramus.
--- NOTE | 2024-03-17 04:11 | CT_ITS ---
PROCEDURE INFORMATION: Exam: CT Head Without Contrast Exam date and time: 03/17/2024 4:27 AM Age: 63 years old Clinical indication: Pain; Other: Head lac; Additional info: Jumped, frontal scalp lac TECHNIQUE: Imaging protocol: Computed tomography of the head without contrast. Radiation optimization: All CT scans at this facility use at least one of these dose optimization techniques: automated exposure control; mA and/or kV adjustment per patient size (includes targeted exams where dose is matched to clinical indication); or iterative reconstruction. COMPARISON: CT HEAD/BRAIN WO CON 03/17/2024 4:27 AM FINDINGS: Brain: There is diffuse prominence of the cerebral sulci, cisterns, and ventricles consistent with atrophy. No intra or extra-axial fluid collections are noted. No mass or mass effect is seen. Periventricular white matter hypoattenuation is seen consistent with chronic small vessel disease. Cerebral ventricles: No ventriculomegaly. Paranasal sinuses: Visualized sinuses are unremarkable. No fluid levels. Mastoid air cells: Visualized mastoid air cells are well aerated. Bones: Unremarkable. No acute fracture. Soft tissues: A scalp laceration is seen in the midline in the high vertex.. IMPRESSION: No acute intracranial process noted.
[2024-03-17] MEDS: ACETAMINOPHEN 500MG TAB 1000 MG PO (04:18)
[2024-03-17] MEDS: ONDANSETRON 4MG/2ML VIAL 4 MG IV (05:28)
[2024-03-17] MEDS: MORPHINE 4MG/ML SYRINGE 4 MG IV ×2 (05:29→05:58)
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
[2024-03-17] MEDS: AMPICILLIN/SULBACTAM 3 GM in 0.9 % SODIUM CHLORIDE 100 ML IV (05:39)
[2024-03-17 05:46] LABS: Basophils % 0.7 % (0.1-2.0); Eosinophils % 0.6 % (0.1-12.0); Hematocrit 43.7 % (42.0-52.0); Hemoglobin 14.9 g/dL (14.1-18.0); Lymphocytes # 1.5 K/mm3 (0.7-4.5); Lymphocytes % 30.2 % (10-50); Mean Corpuscular HGB Conc 34.1 g/dL (31.8-35.4); Mean Corpuscular Hemoglobin 36.2 pg (27.0-31.2); Mean Corpuscular Volume 106.2 fl (80-94); Mean Platelet Volume 8.8 fl (7.4-10.4); Monocytes # 0.4 K/mm3 (0.1-1.0); Monocytes % 9.1 % (1.7-9.3); Neutrophils # 2.9 K/mm3 (1.8-7.8); Neutrophils % 59.5 % (37.0-80.0); Platelet Count 98 K/mm3 (142-424); Red Blood Count 4.12 M/mm3 (4.60-6.20); Red Cell Distribution Width 14.2 % (11.5-17.5); White Blood Count 4.8 K/mm3 (4.8-10.8)
[2024-03-17 05:52] LABS: INR 1.03 (0.9-1.1); Prothrombin Time 11.5 seconds (10.1-12.5)
--- NOTE | 2024-03-17 05:52 | PC.NURSE ---
Contacted [facility] at [phone] in regards to a transfer, images were powered shared to [facility] and they would call us back. [facility] contacted us back at [id number] and spoke to Dr. Son. Accepted to ER by Dr. Nguyen
[2024-03-17 05:53] LABS: Alanine Aminotransferase 100 U/L (12-78); Albumin Level 3.8 g/dl (3.5-5.0); Albumin/Globulin Ratio 1.1 (1.1-1.8); Alkaline Phosphatase 72 U/L (38-126); Aspartate Amino Transferase 72 U/L (17-59); Bilirubin,Total 0.7 mg/dl (0.2-1.3); Blood Urea Nitrogen 16 mg/dl (9-20); Calcium 8.7 mg/dl (8.4-10.2); Carbon Dioxide 30 mmol/L (22.0-30.0); Chloride 104 mmol/L (98-107); Creatinine Clearance Estimated 81 mL/min (50-200); Estimated Glomerular Filt Rate 86 ml/min (>60); GFR (African American) 103 ML/MIN (>60); Globulin 3.4 g/dL (1.3-3.2); Glucose 103 mg/dl (74-100); Sodium 140 mmol/L (136-145); Total Protein,Serum 7.2 g/dl (6.3-8.2)
[2024-03-17 05:56] LABS: HIV (1&2) Antibody Rapid NONREACTIVE (NONREACTIVE)
[2024-03-17] MEDS: LIDOCAINE 1% W/EPI 1:100,000 20ML VIAL 7 ML SQ (05:57)
[2024-03-17] MEDS: KETOROLAC 30MG/ML VIAL 15 MG IV (05:58)
[2024-03-17] MEDS: HALOPERIDOL LACTATE 5 MG/ML VIAL 1 MG IV ×2 (06:00→06:08)
--- NOTE | 2024-03-17 06:02 | PC.NURSE ---
report called KODY dubose
[2024-03-17] MEDS: LORazepam 2MG/ML VIAL 1 MG IV (06:17)
[2024-03-17 06:31] VITALS: BP 115/62; PULSE 72; RESP 18; TEMP 36.9; O2SAT 98
[2024-03-21 19:09] LABS: HCV Ab Reactive (Non Reactive)
== END 2024-03-17 06:33 | disposition short-term general hospital (02) ==
PROVIDERS: Emergency Provider Emergency Medicine
DX: S02.601A Fracture of unspecified part of body of right mandible, initial encounter for closed fracture (principal); S01.01XA Laceration without foreign body of scalp, initial encounter; W19.XXXA Unspecified fall, initial encounter
CPT/HCPCS: 70450; 70486; 72125; 73130; 80053; 85025; 85610; 86803; 87389; 96374; 96375; 96376; 99285; J0295; J1630; J1885; J2060; J2270; J2405

== ENCOUNTER 2024-04-17 16:32 | Observation (INO) | payer MEDICARE, SELFPAY ==
[2024-04-17 16:38] VITALS: BP 98/59; PULSE 70; RESP 18; TEMP 37.1; O2SAT 97; BMI 26.5
--- NOTE | 2024-04-17 16:48 | CT_ITS ---
PROCEDURE INFORMATION: Exam: CT Head Without Contrast Exam date and time: 04/17/2024 5:06 PM Age: 63 years old Clinical indication: Dizziness; Additional info: PHILLIPS, dizziness TECHNIQUE: Imaging protocol: Computed tomography of the head without contrast. Radiation optimization: All CT scans at this facility use at least one of these dose optimization techniques: automated exposure control; mA and/or kV adjustment per patient size (includes targeted exams where dose is matched to clinical indication); or iterative reconstruction. COMPARISON: CT HEAD/BRAIN WO CON 03/17/2024 4:27 AM FINDINGS: Brain: No acute intracranial hemorrhage, midline shift or mass effect. Diffuse brain parenchymal volume loss. Similar pattern of hypodensities within the cerebral white matter. Cerebral ventricles: Ex vacuo dilatation of the ventricles. Paranasal sinuses: Mild scattered mucosal thickening. Mastoid air cells: Visualized mastoid air cells are well aerated. Bones: Redemonstrated right mandibular fracture with fixation hardware at the condylar base. No acute fracture. Soft tissues: Unremarkable. IMPRESSION: No acute intracranial findings.
--- NOTE | 2024-04-17 16:48 | ECG_ITS ---
APPROVED REPORT Exam: Resting ECG HR:63 bpm ECG Measurements Heart Rate 63 AXES SC 139 P 76 QRSd 99 QRS -51 QT 409 T 49 QTc 416 Conclusion SINUS RHYTHM LEFT AXIS DEVIATION [QRS AXIS < -30] LOW QRS VOLTAGE IN EXTREMITY LEADS [QRS DEFLECTION < 0.5 mV IN LIMB LEADS] ABNORMAL ECG UNCONFIRMED REPORT Electronically signed by : JERICHO LEE, 04/17/2024 23:15:43
--- NOTE | 2024-04-17 16:49 | ED_ITS ---
<Statement entered by Lora Silva DO - 04/17/24 22:19> I was consulted by the MONISHA, and we discussed the complexity of the problems being addressed. I approved the treatment and management plan for this patient's care in the emergency department, thus performing a substantive portion of the medical decision making. Lora Silva DO Discharge Plan Disposition Patient Disposition: Admitted Prescriptions Prescriptions: No Action donepezil 5 mg tablet 5 mg PO DAILY risperidone 4 mg tablet 4 mg PO DAILY hydroxyzine pamoate 50 mg capsule 50 mg PO DAILY pantoprazole 40 mg tablet,delayed release (DR/EC) 40 mg PO DAILY divalproex 500 mg tablet extended release 24 hr 1,000 mg PO DAILY benztropine 1 mg tablet 1 mg PO TID Referrals Follow up/Referrals: Karl Lynch APRN [Primary Care Provider] - See instructions Clinical Impressions Clinical Impression: Falls frequently, Shuffling gait Finger fracture, left Qualifiers: Encounter type: initial encounter Finger: ring finger Fracture type: closed P halanx: proximal Fracture alignment: nondisplaced Qualified Code(s): S62.645A - Nondisplaced fracture of proximal phalanx of left ring finger, initial encounter for closed fracture Print Language Print Language: Jordanian Discharge ED Provider: Lora Silva General Adult HPI <KAILEY Li - Last Filed: 04/17/24 20:43> General Chief complaint: Fall Stated complaint: dizziness Time Seen by Provider: 04/17/24 16:33 Mode of Arrival: EMS History of Present Illness HPI narrative: Patient presents with EMS. EMS reports that the patient came from a local assisted living facility with reports of dizziness. He is a poor historian and is unsure of why he is here. When asked if he has pain patient reports bilateral temporal headache. Denies any falls. Denies any fevers. Denies cough. I did discuss this with the [facility] and they report that the patient has been acting weird for several days. They reports that he is leaning forward when he walks, if given a walker he will fall backwards. They report that he has had 6 falls today and did hit his head once. They report an abrasion to his arm as well. MD complaint: headache/ dizziness Related Data Home Medications ?Medication ?Instructions ?Recorded ?Confirmed benztropine 1 mg tablet 1 mg PO TID 02/07/24 02/07/24 divalproex 500 mg tablet,extended 1,000 mg PO DAILY 02/07/24 02/07/24 release 24 hr donepezil 5 mg tablet 5 mg PO DAILY 02/07/24 02/07/24 hydroxyzine pamoate 50 mg capsule 50 mg PO DAILY 02/07/24 02/07/24 pantoprazole 40 mg tablet,delayed 40 mg PO DAILY 02/07/24 02/07/24 release risperidone 4 mg tablet 4 mg PO DAILY 02/07/24 02/07/24 Allergies Allergy/AdvReac Type Severity Reaction Status Date / Time No Known Allergies Allergy Verified 11/29/23 18:45 [facility] <KAILEY Li - Last Filed: 04/17/24 20:43> [facility] Disclaimer: The information contained in this section may have been updated after the patient was seen, as this information can be updated by other users. Medical History Epilepsy Family History Other No significant family history Social History (Updated 11/30/23 @ 23:09 by Yudi Rubin RN) Smoking Status: Current every day smoker alcohol intake: never current occupational status: retired Travel in the last 8 weeks: None Other Medical History Have you received the Flu Vaccine for this season: No Have you received the Pneumonia Vaccine: No <KAILEY Li - Last Filed: 04/17/24 20:43> ROS Obtained: Yes Systems reviewed as appropriate & no additional complaints except as documented Physical Exam <KAILEY Li Last Filed: 04/17/24 20:43> General General appearance: alert and in no apparent distress Head Head exam: atraumatic and normocephalic Eye Eye exam: Present normal appearance and EOMI Chest Chest inspection: Present symmetric chest wall rise Respiratory Respiratory exam: Present normal lung sounds bilaterally; Absent wheezes or stridor Cardiovascular Cardiovascular exam: Present regular rate and normal rhythm; Absent systolic murmur Abdominal Exam Abdominal exam: Present soft; Absent distention, tenderness or guarding Extremities Exam Extremities exam: Present full ROM Expanded Upper Extremity Exam Left: Forearm/Wrist exam: Present abrasion, laceration (superficial 5 cm) and other (FROM, N/V intact ) Neurological Exam Neurological exam: Present alert, normal gait and other (at baseline ) Psychiatric Psychiatric exam: Present normal affect and normal mood Skin Skin exam: Present warm, dry and intact Medical Decision Making <KAILEY Li - Last Filed: 04/17/24 20:43> Medical Records Screening: Per USPSTF and CDC recommendations, given the prevalence of disease in our region, it is our hospital?s policy to screen for HIV and viral Hepatitis for all patients aged 18 and over and those with ongoing risk factors. David Inquiry Pt receiving controlled substance: No Vital Signs: 04/17/24 16:38 04/17/24 20:27 Temperature 98.8 F Temperature Source Oral Pulse Rate 64 Pulse Rate [Right Radial] 70 Respiratory Rate 18 Blood Pressure 112/59 L Blood Pressure [Right Arm] 98/59 L Blood Pressure Mean 76 Blood Pressure Mean [Right Arm] 72 02 Sat by Pulse Oximetry 97 97 Oxygen Delivery Method Room Air Room Air Lab Data Lab Results 04/17/24 16:34: WBC 5.9, RBC 3.81 L, Hgb 14.1, Hct 39.1 L, MCV 102.6 H, MCH 36.9 H, MCHC 35.9 H, RDW 14.3, Plt Count 94 L, MPV 8.6, Neut % (Auto) 62.6, Lymph % (Auto) 27.9, Cavalier % (Auto) 8.0, Eos % (Auto) 1.0, Baso % (Auto) 0.5, Neut # (Auto) 3.7, Lymph # (Auto) 1.6, Cavalier # (Auto) 0.5, Eos # (Auto) 0.1, Baso # (Auto) 0.0, Sodium 142, Potassium 3.7, Chloride 108 H, Carbon Dioxide 26, Anion Gap 11.7, BUN 20, Creatinine 1.00, Estimated Creat Clear 91, Estimated GFR 76, Est GFR ( Amer) 92, Glucose 109 H, Calcium 8.5, Magnesium 1.5 L, Total Bilirubin 0.5, AST 40, ALT 32, Alkaline Phosphatase 72, Total Protein 6.5, Albumin 3.5, Globulin 3.0, Albumin/Globulin Ratio 1.2 04/17/24 20:12: Urine Color Yellow, Urine Appearance Clear, Urine pH 6.0, Ur Specific [place] 1.025, Urine Protein Negative, Urine Glucose (UA) Negative, Urine Ketones Trace, Urine Blood Negative, Urine Nitrate Negative, Urine Bilirubin 1+ A, Urine Urobilinogen 0.2, Ur Leukocyte Esterase Negative, Urine RBC Occasional, Urine WBC 5-10, Ur Squamous Epith Cells 5-10, Urine Bacteria 1+ 04/17/24 16:34 04/17/24 16:34 Orders (Tests/Meds): ED MEDICATIONS Generic Name Dose Route Start Last Admin Trade Name Freq PRN Reason Stop Dose Admin Magnesium Sulfate 2 gm in 50 mls @ 50 mls/hr 04/17/24 20:36 Magnesium Sulfate 2gm/50ml Premix IV 04/17/24 21:35 ONCE ONE Sodium Chloride 10 ml 04/17/24 20:15 Sodium Chloride 0.9% 10ml Vial IV 05/17/24 20:14 NEEDED PRN to Dilute Lorazepam inj Discontinued Medications Generic Name Dose Route Start Last Admin Trade Name Freq PRN Reason Stop Dose Admin Lorazepam 0.5 mg 04/17/24 20:15 04/17/24 20:29 Lorazepam 2mg/Ml Vial IV 04/17/24 20:16 0.5 mg ONCE ONE Administration ORDERS Category Date Time Status CT cervical spine wo con Stat Cat Scan 04/17/24 17:[address] head/brain wo con Stat Cat Scan 04/17/24 16:[address] lumbar spine wo con Stat Cat Scan 04/17/24 17:[address] thoracic spine wo con Stat Cat Scan 04/17/24 17:01 Completed Forearm XR left 2 views [XR forearm LT 2V] Stat Exams 04/17/24 17:05 Completed XR chest portable Stat Exams 04/17/24 17:03 Completed XR hand LT min 3V Stat Exams 04/17/24 17:51 Completed XR pelvis 1-2V Stat Exams 04/17/24 17:01 Completed Ammonia Stat Lab 04/17/24 20:38 Ordered CBC w/Auto Diff [Complete Blood Count Auto Diff] Stat Lab 04/17/24 16:34 Completed CMP [Comprehensive Metabolic Panel] Stat Lab 04/17/24 16:34 Completed Magnesium Stat Lab 04/17/24 16:34 Completed Urinalysis and Microscopic Stat Lab 04/17/24 20:12 Completed Vitamin B12 Routine Lab 04/17/24 20:41 Ordered Urine Culture Stat Micro 04/17/24 20:12 Received EKG Request [ECG Request] Stat Y 04/17/24 16:48 Ordered Medical Decision Narrative: In summary patient is a 63-year-old male who presents the emergency department for evaluation after multiple falls today. Patient is slightly hypotensive, afebrile upon arrival, slightly. Unremarkable physical. Differential diagnosis includes intracranial hemorrhage, pelvic fracture, rib fracture, spinal fracture. Initial workup will be conducted with hematologic labs, CT brain, C- spine, T-spine, L-spine as well as chest x-ray and pelvic x-ray. He has an abrasion/superficial laceration to his left forearm, will obtain x-ray of this as well. Initial workup reviewed by me mild hypomagnesemia, left hand fourth digit proximal phalanx fracture, other imaging is unremarkable. Upon repeat evaluation patient continues to have shuffling gait and is at risk for more falls. Given this patient will be admitted to hospitalist. This could potentially be a side effect of recently starting Namenda. If not improving patient may need placement at a halfway facility. <Lora Silva, DO - Last Filed: 04/17/24 20:25> Vital Signs: 04/17/24 16:38 04/17/24 20:27 Temperature 98.8 F Temperature Source Oral Pulse Rate 64 Pulse Rate [Right Radial] 70 Respiratory Rate 18 Blood Pressure 112/59 L Blood Pressure [Right Arm] 98/59 L Blood Pressure Mean 76 Blood Pressure Mean [Right Arm] 72 02 Sat by Pulse Oximetry 97 97 Oxygen Delivery Method Room Air Room Air Lab Data Lab Results 04/17/24 16:34: WBC 5.9, RBC 3.81 L, Hgb 14.1, Hct 39.1 L, MCV 102.6 H, MCH 36.9 H, MCHC 35.9 H, RDW 14.3, Plt Count 94 L, MPV 8.6, Neut % (Auto) 62.6, Lymph % (Auto) 27.9, Cavalier % (Auto) 8.0, Eos % (Auto) 1.0, Baso % (Auto) 0.5, Neut # (Auto) 3.7, Lymph # (Auto) 1.6, Cavalier # (Auto) 0.5, Eos # (Auto) 0.1, Baso # (Auto) 0.0, Sodium 142, Potassium 3.7, Chloride 108 H, Carbon Dioxide 26, Anion Gap 11.7, BUN 20, Creatinine 1.00, Estimated Creat Clear 91, Estimated GFR 76, Est GFR ( Amer) 92, Glucose 109 H, Calcium 8.5, Magnesium 1.5 L, Total Bilirubin 0.5, AST 40, ALT 32, Alkaline Phosphatase 72, Total Protein 6.5, Albumin 3.5, Globulin 3.0, Albumin/Globulin Ratio 1.2 04/17/24 20:12: Urine Color Yellow, Urine Appearance Clear, Urine pH 6.0, Ur Specific [place] 1.025, Urine Protein Negative, Urine Glucose (UA) Negative, Urine Ketones Trace, Urine Blood Negative, Urine Nitrate Negative, Urine Bilirubin 1+ A, Urine Urobilinogen 0.2, Ur Leukocyte Esterase Negative, Urine RBC Occasional, Urine WBC 5-10, Ur Squamous Epith Cells 5-10, Urine Bacteria 1+ Orders (Tests/Meds): ED MEDICATIONS Generic Name Dose Route Start Last Admin Trade Name Freq PRN Reason Stop Dose Admin Magnesium Sulfate 2 gm in 50 mls @ 50 mls/hr 04/17/24 20:36 Magnesium Sulfate 2gm/50ml Premix IV 04/17/24 21:35 ONCE ONE Sodium Chloride 10 ml 04/17/24 20:15 Sodium Chloride 0.9% 10ml Vial IV 05/17/24 20:14 NEEDED PRN to Dilute Lorazepam inj Discontinued Medications Generic Name Dose Route Start Last Admin Trade Name Freq PRN Reason Stop Dose Admin Lorazepam 0.5 mg 04/17/24 20:15 04/17/24 20:29 Lorazepam 2mg/Ml Vial IV 04/17/24 20:16 0.5 mg ONCE ONE Administration ORDERS Category Date Time Status CT cervical spine wo con Stat Cat Scan 04/17/24 17:[address] head/brain wo con Stat Cat Scan 04/17/24 16:[address] lumbar spine wo con Stat Cat Scan 04/17/24 17:[address] thoracic spine wo con Stat Cat Scan 04/17/24 17:01 Completed Forearm XR left 2 views [XR forearm LT 2V] Stat Exams 04/17/24 17:05 Completed XR chest portable Stat Exams 04/17/24 17:03 Completed XR hand LT min 3V Stat Exams 04/17/24 17:51 Completed XR pelvis 1-2V Stat Exams 04/17/24 17:01 Completed Ammonia Stat Lab 04/17/24 20:38 Ordered CBC w/Auto Diff [Complete Blood Count Auto Diff] Stat Lab 04/17/24 16:34 Completed CMP [Comprehensive Metabolic Panel] Stat Lab 04/17/24 16:34 Completed Magnesium Stat Lab 04/17/24 16:34 Completed Urinalysis and Microscopic Stat Lab 04/17/24 20:12 Completed Vitamin B12 Routine Lab 04/17/24 20:41 Ordered Urine Culture Stat Micro 04/17/24 20:12 Received EKG Request [ECG Request] Stat Y 04/17/24 16:48 Ordered ECG Data Tracing #1: I reviewed this ECG and interpreted as documented below: Normal sinus rhythm with a ventricular to 63 bpm. Left axis deviation. No acute ST changes concerning for ischemia. ECG initial impression date: 04/17/24 ECG initial impression time: 20:05 Procedures <KAILEY Li - Last Filed: 04/17/24 20:43> Laceration Laceration 1: Site: upper extremity Side (If applicable): left Size (cm): 5 Description: linear Depth: simple, single layer Pre-repair: irrigated extensively Skin layer closed with: Dermabond Critical Care <KAILEY Li - Last Filed: 04/17/24 20:43> Critical Care Time Critical Care Time: No
[2024-04-17 16:56] LABS: Basophils % 0.5 % (0.1-2.0); Eosinophils # 0.1 K/mm3 (0.0-0.4); Hematocrit 39.1 % (42.0-52.0); Hemoglobin 14.1 g/dL (14.1-18.0); Lymphocytes # 1.6 K/mm3 (0.7-4.5); Lymphocytes % 27.9 % (10-50); Mean Corpuscular HGB Conc 35.9 g/dL (31.8-35.4); Mean Corpuscular Hemoglobin 36.9 pg (27.0-31.2); Mean Corpuscular Volume 102.6 fl (80-94); Mean Platelet Volume 8.6 fl (7.4-10.4); Monocytes # 0.5 K/mm3 (0.1-1.0); Neutrophils # 3.7 K/mm3 (1.8-7.8); Neutrophils % 62.6 % (37.0-80.0); Platelet Count 94 K/mm3 (142-424); Red Blood Count 3.81 M/mm3 (4.60-6.20); Red Cell Distribution Width 14.3 % (11.5-17.5); White Blood Count 5.9 K/mm3 (4.8-10.8)
[2024-04-17 17:01] LABS: Albumin Level 3.5 g/dl (3.5-5.0); Chloride 108 mmol/L (98-107); Potassium 3.7 mmoL/L (3.5-5.1); Sodium 142 mmol/L (136-145)
--- NOTE | 2024-04-17 17:01 | CT_ITS ---
PROCEDURE INFORMATION: Exam: CT Lumbar Spine Without Contrast Exam date and time: 04/17/2024 5:16 PM Age: 63 years old Clinical indication: Injury or trauma; Fall; Blunt trauma (contusions or hematomas) TECHNIQUE: Imaging protocol: Computed tomography of the lumbar spine without contrast. Radiation optimization: All CT scans at this facility use at least one of these dose optimization techniques: automated exposure control; mA and/or kV adjustment per patient size (includes targeted exams where dose is matched to clinical indication); or iterative reconstruction. COMPARISON: 1. CT LUMBAR SPINE WO CON 07/01/2023 10:[address] THORACIC SPINE WO CON 04/17/2024 5:[address] ABDOMEN PELVIS W CON 11/30/2023 9:19 PM FINDINGS: Bones/joints: No evidence of acute spondylolisthesis or vertebral subluxation. Vertebral body heights are generally preserved, but some endplate sclerosis and anterior osteophytes are noted at multiple levels. Narrowing of multiple intervertebral disc spaces observed, indicative of degenerative disc disease. Hypertrophic changes are seen in the facet joints, consistent with osteoarthritis. No fractures or bony lesions identified. No abnormalities seen in adjacent osseous structures. There is diffuse osseous demineralization. Liver: There is a low-density lesion in the liver which statistically reflects either a cyst or hemangioma. Soft tissues: Unremarkable. Other findings: No obvious abnormalities seen in the prevertebral and paravertebral soft tissues. IMPRESSION: Degenerative changes without acute abnormality detected.
--- NOTE | 2024-04-17 17:01 | CT_ITS ---
PROCEDURE INFORMATION: Exam: CT Thoracic Spine Without Contrast Exam date and time: 04/17/2024 5:12 PM Age: 63 years old Clinical indication: Injury or trauma; Fall; Blunt trauma (contusions or hematomas) TECHNIQUE: Imaging protocol: Computed tomography of the thoracic spine without contrast. Radiation optimization: All CT scans at this facility use at least one of these dose optimization techniques: automated exposure control; mA and/or kV adjustment per patient size (includes targeted exams where dose is matched to clinical indication); or iterative reconstruction. COMPARISON: 1. CT THORACIC SPINE WO CON 07/01/2023 10:[address] CERVICAL SPINE WO CON 04/17/2024 5:[address] CERVICAL SPINE WO CON 03/17/2024 4:29 AM FINDINGS: Bones/joints: No evidence of acute spondylolisthesis or vertebral subluxation. Vertebral body heights are generally preserved, but some endplate sclerosis and anterior osteophytes are noted at multiple levels. Narrowing of multiple intervertebral disc spaces observed, indicative of degenerative disc disease. Hypertrophic changes are seen in the facet joints, consistent with osteoarthritis. No fractures or bony lesions identified. No abnormalities seen in adjacent osseous structures. Soft tissues: Unremarkable. Other findings: No obvious abnormalities seen in the prevertebral and paravertebral soft tissues. IMPRESSION: Degenerative changes without acute abnormality detected.
--- NOTE | 2024-04-17 17:01 | XR_ITS ---
PROCEDURE INFORMATION: Exam: XR Pelvis Exam date and time: 04/17/2024 5:59 PM Age: 63 years old Clinical indication: Injury or trauma; Fall; Blunt trauma (contusions or hematomas); Bilateral; Pelvic region TECHNIQUE: Imaging protocol: Radiologic exam of the pelvis. Views: 1 or 2 view. COMPARISON: CR XR HIP LT 2-3V W/PELVIS 02/07/2024 4:40 AM FINDINGS: Bones/joints: The left femoral neck is not well evaluated due to positioning. Soft tissues: Unremarkable. Other findings: Otherwise, no injury is identified. IMPRESSION: 1. The left femoral neck is not well evaluated due to positioning. 2. Otherwise, no injury is identified.
--- NOTE | 2024-04-17 17:01 | CT_ITS ---
PROCEDURE INFORMATION: Exam: CT Cervical Spine Without Contrast Exam date and time: 04/17/2024 5:09 PM Age: 63 years old Clinical indication: Injury or trauma; Fall; Blunt trauma TECHNIQUE: Imaging protocol: Computed tomography of the cervical spine without contrast. Radiation optimization: All CT scans at this facility use at least one of these dose optimization techniques: automated exposure control; mA and/or kV adjustment per patient size (includes targeted exams where dose is matched to clinical indication); or iterative reconstruction. COMPARISON: CT CERVICAL SPINE WO CON 03/17/2024 4:29 AM FINDINGS: Bones: Cervical vertebrae normal in height. No acute fracture. Reversal of normal cervical lordosis centered at C4-C5. Grade 1 anterolisthesis C4 on C5. Minimal left lateral tilt. Maintained craniocervical junction. Multilevel degenerative changes. Varying degrees of neural foraminal narrowing. No severe spinal canal stenosis. Redemonstrated right mandibular fracture status post ORIF. Lungs: Lung apices are normal. Soft tissues: Right submandibular soft tissue swelling. IMPRESSION: No acute osseous findings.
--- NOTE | 2024-04-17 17:03 | XR_ITS ---
PROCEDURE INFORMATION: Exam: XR Chest Exam date and time: 04/17/2024 5:59 PM Age: 63 years old Clinical indication: Injury or trauma; Fall; Blunt trauma (contusions or hematomas) TECHNIQUE: Imaging protocol: Radiologic exam of the chest. Views: 1 view. COMPARISON: CR XR CHEST PORTABLE 02/07/2024 4:40 AM FINDINGS: Lungs: No evidence of acute pulmonary disease or infiltrates Pleural spaces: No large effusion or pneumothorax. Heart/Mediastinum: Stable cardiac and mediastinal contours. Bones/joints: No evidence of acute osseous abnormalities within the visualized portions of the thoracic spine and ribs. Osseous structures appear appropriate for patient age. IMPRESSION: No dense parenchymal consolidation, pleural effusion, or pneumothorax.
[2024-04-17 17:04] LABS: Alanine Aminotransferase 32 U/L (12-78); Albumin/Globulin Ratio 1.2 (1.1-1.8); Alkaline Phosphatase 72 U/L (38-126); Anion Gap 11.7 mEq/L (5-15); Aspartate Amino Transferase 40 U/L (17-59); Bilirubin,Total 0.5 mg/dl (0.2-1.3); Blood Urea Nitrogen 20 mg/dl (9-20); Carbon Dioxide 26 mmol/L (22.0-30.0); Creatinine Clearance Estimated 91 mL/min (50-200); Estimated Glomerular Filt Rate 76 ml/min (>60); GFR (African American) 92 ML/MIN (>60); Total Protein,Serum 6.5 g/dl (6.3-8.2)
[2024-04-17 17:05] LABS: Calcium 8.5 mg/dl (8.4-10.2); Glucose 109 mg/dl (74-100); Magnesium 1.5 mg/dl (1.6-2.3)
--- NOTE | 2024-04-17 17:05 | XR_ITS ---
PROCEDURE INFORMATION: Exam: XR Left Forearm Exam date and time: 04/17/2024 5:59 PM Age: 63 years old Clinical indication: Injury or trauma; Fall; Blunt trauma (contusions or hematomas); Arm, lower; Left; Additional info: Fall, abrasion TECHNIQUE: Imaging protocol: Radiologic exam of the left forearm. Views: 2 views. COMPARISON: CR XR HAND LT MIN 3V 04/17/2024 5:59 PM FINDINGS: Bones/joints: The osseous structures appear intact with no evidence of acute fracture, dislocation, or malalignment. Joint spaces are preserved. No abnormal bone density or destructive lesions are noted. Soft tissues: Soft tissues appear unremarkable. IMPRESSION: At the time of imaging, there is no evidence for acute osseous abnormalities.
--- NOTE | 2024-04-17 17:51 | XR_ITS ---
PROCEDURE INFORMATION: Exam: XR Left Hand Exam date and time: 04/17/2024 5:59 PM Age: 63 years old Clinical indication: Pain; Other: Left 4th finger contusion at pip TECHNIQUE: Imaging protocol: Radiologic exam of the left hand. Views: 3 or more views. COMPARISON: CR XR HAND LT MIN 3V 03/17/2024 4:17 AM FINDINGS: Bones/joints: There is a suspected small fracture of the distal aspect of the 4th proximal phalanx. Soft tissues: Normal. IMPRESSION: There is a suspected small fracture of the distal aspect of the 4th proximal phalanx.
--- NOTE | 2024-04-17 19:04 | PC.NURSE ---
helped pt set up in bed
[2024-04-17 20:20] LABS: Microscopic, Urine URINE MICROSCOPIC (MICROSCOPIC)
[2024-04-17 20:22] LABS: Appearance,Urine CLEAR (Clear); Blood, Urine Negative (Negative); Color,Urine YELLOW (Yellow); Glucose,Urine (UA) Negative (Negative); Ketones,Urine TRACE (Negative); Leukocyte Esterase,Urine Negative (Negative); Nitrate,Urine Negative (Negative); Protein,Urine Negative (Negative); Specific Gravity, Urine 1.025 (1.005-1.030); Urobilinogen,Urine 0.2 EU/dl (0.2)
--- NOTE | 2024-04-17 20:22 | PC.NURSE ---
[facility] called to check on pt, updated Madisyn at [facility] on plan of care at this time.
[2024-04-17 20:27] VITALS: BP 112/59; PULSE 64; O2SAT 97
[2024-04-17 20:27] LABS: Bilirubin,Urine 1+ (Negative)
[2024-04-17 20:29] LABS: RBC,Urine Occasional #/hpf (0-3)
[2024-04-17] MEDS: LORazepam 2MG/ML VIAL 0.5 MG IV (20:29)
[2024-04-17 20:30] LABS: Bacteria,Urine 1+ /lpf
--- NOTE | 2024-04-17 20:30 | PC.NURSE ---
Soft finger splint applied to left 4th digit on hand. Patient tolerated well.
[2024-04-17] MEDS: MAGNESIUM SULFATE IN WATER 2 GM/50 ML PIGGYBACK IV (20:45)
[2024-04-17 20:46] VITALS: PULSE 64; RESP 17; O2SAT 98
--- NOTE | 2024-04-17 20:49 | PC.NURSE ---
Report called to KODY Bagley
--- NOTE | 2024-04-17 20:56 | P.HP_ITS ---
History of Present Illness *Admission Date: 04/17/24 *Reason for visit:: Frequent falls *History of present illness: This is a 63-year-old male that presents to [facility] emergency department from his residential [facility] in [facility]. History is acquired from the ED provider and electronic medical record. His past medical history is significant for psychiatric disorder on chronic antipsychotic therapy with presenting ataxia and frequent falls. He has a chronic diagnoses of dementia with previous hospitalization in November 2023 identifying the need for geriatric psychiatry and neurology evaluations. He has had several ED evaluations since November for tremors and falls. Previous CT head imaging has identified ventriculomegaly. [facility] Medical History (Updated 04/17/24 @ 21:44 by Bruce De Jesus MD) Mood disorder Dementia Epilepsy Family History Other No significant family history Social History (Updated 11/30/23 @ 23:09 by Yudi Rubin RN) Smoking Status: Current every day smoker alcohol intake: never current occupational status: retired Travel in the last 8 weeks: None Other Medical History Have you received the Flu Vaccine for this season: No Have you received the Pneumonia Vaccine: No Review of Systems Review of Systems Review of systems:: unable to obtain Meds Home Medications and Allergies Home Medications ?Medication ?Instructions ?Recorded ?Confirmed ?Type benztropine 1 mg tablet 1 mg PO TID 02/07/24 02/07/24 History divalproex 500 mg tablet,extended 1,000 mg PO DAILY 02/07/24 02/07/24 History release 24 hr donepezil 5 mg tablet 5 mg PO DAILY 02/07/24 02/07/24 History hydroxyzine pamoate 50 mg capsule 50 mg PO DAILY 02/07/24 02/07/24 History pantoprazole 40 mg tablet,delayed 40 mg PO DAILY 02/07/24 02/07/24 History release risperidone 4 mg tablet 4 mg PO DAILY 02/07/24 02/07/24 History New Prescriptions to Start Prescriptions: Allergies Allergy/AdvReac Type Severity Reaction Status Date / Time No Known Allergies Allergy Verified 11/29/23 18:45 Exam Data for Last 24 hours Vital signs and Labs for Last 24 Hours: Temp Pulse Resp BP Pulse Ox O2 Del Method 98.8 F 64 18 112/59 L 97 Room Air 04/17/24 16:38 04/17/24 20:27 04/17/24 16:38 04/17/24 20:27 04/17/24 20:27 04/17/24 20:27 Laboratory Results - last 24 hr 04/17/24 16:34: WBC 5.9, RBC 3.81 L, Hgb 14.1, Hct 39.1 L, MCV 102.6 H, MCH 36.9 H, MCHC 35.9 H, RDW 14.3, Plt Count 94 L, MPV 8.6, Neut % (Auto) 62.6, Lymph % (Auto) 27.9, Sandoval % (Auto) 8.0, Eos % (Auto) 1.0, Baso % (Auto) 0.5, Neut # (Auto) 3.7, Lymph # (Auto) 1.6, Sandoval # (Auto) 0.5, Eos # (Auto) 0.1, Baso # (Auto) 0.0, Sodium 142, Potassium 3.7, Chloride 108 H, Carbon Dioxide 26, Anion Gap 11.7, BUN 20, Creatinine 1.00, Estimated Creat Clear 91, Estimated GFR 76, Est GFR ( Amer) 92, Glucose 109 H, Calcium 8.5, Magnesium 1.5 L, Total Bilirubin 0.5, AST 40, ALT 32, Alkaline Phosphatase 72, Total Protein 6.5, Albumin 3.5, Globulin 3.0, Albumin/Globulin Ratio 1.2 04/17/24 20:12: Urine Color Yellow, Urine Appearance Clear, Urine pH 6.0, Ur Specific [place] 1.025, Urine Protein Negative, Urine Glucose (UA) Negative, Urine Ketones Trace, Urine Blood Negative, Urine Nitrate Negative, Urine Bilirubin 1+ A, Urine Urobilinogen 0.2, Ur Leukocyte Esterase Negative, Urine RBC Occasional, Urine WBC 5-10, Ur Squamous Epith Cells 5-10, Urine Bacteria 1+ I & O for Last 24 hours: Intake & Output 04/14/24 04/15/24 04/16/24 04/17/24 23:59 23:59 23:59 23:59 Weight 83.915 kg Constitutional Constitutional: no acute distress, chronically ill appearing, disheveled and agitated *Routine HEENT Exam Head: Present normocephalic and atraumatic Eye: Present EOMI and PERRL ENT: Present mucous membranes dry *Routine Neck Exam Neck: Present supple and trachea midline; Absent JVD or lymphadenopathy *Routine Respiratory Exam Respiratory: Present rhonchi, normal respiratory effort and symmetric chest movement; Absent respiratory distress *Routine Cardiovascular Exam Cardiovascular: Present RRR *Routine Abdominal Exam Abdominal: Present soft and normoactive bowel sounds; Absent tenderness *Routine Rectal Exam Rectal:: deferred *Routine Genitalia Exam Genitalia:: deferred *Routine Extremities Exam Extremities: Present full ROM and normal capillary refill; Absent cyanosis, clubbing or edema Routine Back/Spine/Pelvis Exam Back/Spine: Absent vertebral tenderness *Routine Skin Exam Skin: Present intact, warm and wounds; Absent rash Comments: Left ring finger with ecchymosis and tender, left ventral forearm with abrasion *Routine Neurological Exam Neurological: Present alert, altered mental status, abnormal gait, moving all extremities, vision grossly intact, hearing grossly intact and tremors; Absent oriented X3, sensory deficit, motor deficit, normal tone or normal speech Comments: Cog wheeling Routine Psychiatric Exam Psychiatric: Present agitated; Absent cooperative, good insight or good judgment Comments: Blunt affect Assessment and Plan *Assessment and plan (1) Parkinson's disease (tremor, stiffness, slow motion, unstable posture): Status: Acute Category: Medical Code(s): G20.A1 - Parkinson's disease without dyskinesia, without mention of fluctuations (2) NPH (normal pressure hydrocephalus): Status: Acute Category: Medical Code(s): G91.2 - (Idiopathic) normal pressure hydrocephalus (3) Falls frequently: Status: Acute Category: Medical Code(s): R29.6 - Repeated falls (4) Dementia: Status: Acute Category: Medical Code(s): F03.90 - Unspecified dementia, unspecified severity, without behavioral disturbance, psychotic disturbance, mood disturbance, and anxiety (5) Mood disorder: Status: Acute Category: Medical Code(s): F39 - Unspecified mood [affective] disorder Plan This is a 63-year-old male that resides at [facility] with ~5 months of identified increase in falls. Previous hospitalization at [facility] November 2023 identified chronic psychiatric disorder, dementia and ventriculomegaly on CT head. Problems addressed as follows: Parkinson's disease Dementia Frequent falls Chronic antipsychotic therapy Concerns for normal pressure hydrocephalus with previous neuroimaging identifying ventriculomegaly Consideration for MRI brain CT cervical, thoracic and lumbar spine with degenerative changes and no acute fractures Fall precautions Aspiration precautions PT and OT evaluations Case management consult for next site of care Aricept therapy Currently on Cogentin therapy Outpatient follow-up with neurology Left fourth digit fracture Splint care Seizure disorder Seizure precautions Divalproex ER therapy Mood disorder Residential living Routine nursing interaction Antipsychotic therapy Outpatient follow-up with psychiatry The length of stay for this patient will be 2 midnights or greater due to above diagnoses.
[2024-04-17 21:05] VITALS: BP 112/59; PULSE 64; RESP 17; TEMP 36.6; O2SAT 97
--- NOTE | 2024-04-17 21:05 | PC.NURSE ---
Patient arrived to floor via stretcher from ED at 21:01.
[2024-04-17 21:09] LABS: Amphetamine/Metha Screen,Urine Negative ng/ml (<1000)
[2024-04-17 21:10] LABS: Barbiturates Screen,Urine Negative ng/ml (<200); Benzodiazepines Screen,Urine Negative ng/ml (<200)
[2024-04-17 21:11] LABS: Cannabinoid Screen,Urine Negative ng/ml (<50)
[2024-04-17 21:12] LABS: Cocaine Screen,Urine Negative ng/ml (<300); Methadone Screen,Urine Negative ng/ml (<300)
[2024-04-17 21:13] LABS: Opiate Screen,Urine Negative ng/ml (<300)
[2024-04-17 21:14] LABS: Phencyclidine Screen,Urine Negative ng/ml (<25)
[2024-04-17 21:28] VITALS: BP 116/68; PULSE 68; RESP 14; TEMP 37.1; O2SAT 91; BMI 21.1
[2024-04-17] MEDS: BENZTROPINE 1MG TABLET 1 MG PO (21:55)
[2024-04-17] MEDS: ENOXAPARIN 40MG/0.4ML SYRINGE 40 MG SUBCUT (21:55)
[2024-04-17] MEDS: risperiDONE 1MG TABLET 4 MG PO (21:55)
[2024-04-17] MEDS: PANTOPRAZOLE 40MG TABLET 40 MG PO (21:55)
[2024-04-17 22:11] LABS: Ammonia < 9 umol/L (9-30)
[2024-04-17 22:48] LABS: Vitamin B12 418 pg/mL (239-931)
--- NOTE | 2024-04-17 23:30 | PC.NURSE ---
The top picture shows two lacerations/scrapes with minimalist bleeding on the posterior side of the left forearm. The bottom picture shows healing, moderate yellow bruising across the upper chest. The patient also has a small fracture to his left 4th digit (previously splinted in ER, but due to patient's altered mental status, he had taken it off) with purple bruising and swelling on the middle knuckle, and a right mandibular fracture, both confirmed by x-ray imaging. When questioned upon assessment, the patient denied any pain, stating he feels no pain.
--- NOTE | 2024-04-18 03:36 | PC.NURSE ---
Mr Kar Villalobos, a resident of [facility], was newly admitted this shift on behalf of the documented diagnoses: altered mental status and frequent falls. Upon arrival to the floor, the patient was very restless but not violent, and redirection/reorientation was repetitive. One-on-one observation was initiated this shift for safety precautions. Seizure pads were put into place due to the patient's history of epilepsy. Patient is alert to himself and can state his birthday. The patient was able to answer a few questions appropriately, but, at other times, the patient either does not respond appropriately or does not respond at all. Patient responds with a flat affect and poor eye contact the majority of the time. Pin-point pupils were noted upon assessment. Scheduled medications were administered as accordingly per JUL. The patient was able to swallow ice water efficiently with encouragement. Upon auscultation, the patient's lung sounds were diminished. Patient has been incontinent and cannot verbalize the need to turn in bed. Assistance with feeding crucial. The patient's skin issues were noted and described (see prior note). Around midnight this shift, the patient continued to make attempts to climb out of his bed; Melanie SEGUNDO took the patient for laps around the hallway in a wheelchair. After a couple laps, the patient was assisted back into bed and coaxed to rest. Thus far, the patient is observed to have eyes closed, respirations even and unlabored on room air, and no apparent distress. Patient has continued to deny having any pain this shift. No acute changes are noted thus far. Bed alarm on. Call light within reach. Due to restlessness for the majority of the shift and altered mental status, the patient's 04:00 vital sign assessment was postponed to avoid further agitation and sleep deprivation. Patient's previous assessments have been stable this shift.
[2024-04-18 04:00] VITALS: BP 113/56; PULSE 56; RESP 14; TEMP 36.4; O2SAT 95; BMI 21.1
[2024-04-18 07:13] LABS: Chloride 107 mmol/L (98-107); Potassium 3.8 mmoL/L (3.5-5.1); Sodium 137 mmol/L (136-145)
[2024-04-18 07:16] LABS: Anion Gap 5.8 mEq/L (5-15); Blood Urea Nitrogen 14 mg/dl (9-20); Calcium 8.3 mg/dl (8.4-10.2); Carbon Dioxide 28 mmol/L (22.0-30.0); Creatinine Clearance Estimated 73 mL/min (50-200); Estimated Glomerular Filt Rate 114 ml/min (>60); GFR (African American) 138 ML/MIN (>60); Glucose 81 mg/dl (74-100)
[2024-04-18 07:17] LABS: Magnesium 2.2 mg/dl (1.6-2.3)
[2024-04-18 08:00] VITALS: BP 84/51; PULSE 56; RESP 18; O2SAT 96
--- NOTE | 2024-04-18 08:01 | P.CONPHA_ITS ---
Pharmacy Intervention Comments: HOME MEDICATIONS VERIFIED VIA [facility]
--- NOTE | 2024-04-18 08:01 | HMH.PHAINT1 ---
Pharmacy Intervention Comments: HOME MEDICATIONS VERIFIED VIA [facility]
[2024-04-18 09:06] LABS: Free T4 (Free Thyroxine) 0.83 ng/dl (0.78-2.19)
--- NOTE | 2024-04-18 10:18 | HMH.PTEV ---
Physical Therapy Evaluation Rehab PT IP Evaluation Start: 04/18/24 20:48 Freq: ONCE Status: Active Protocol: Document 04/18/24 10:07 MACY (Rec: 04/18/24 10:18 MACY [id number]) Subjective/History History History Per H&P: This is a 63-year- old male that presents to [facility] emergency department from his residential facility [facility] in [facility]. History is acquired from the ED provider and electronic medical record. His past medical history is significant for psychiatric disorder on chronic antipsychotic therapy with presenting ataxia and frequent falls. He has a chronic diagnoses of dementia with previous hospitalization in November 2023 identifying the need for geriatric psychiatry and neurology evaluations. He has had several ED evaluations since November for tremors and falls. Previous CT head imaging has identified ventriculomegaly. Subjective Subjective Pt not able to answer history questions d/t confusion. Pt difficult to understand. Pt found soiled in urine d/t incontinence with OT assisting pt in room. Pt required multiple cues for safety awareness. Pt falling asleep towards end of ambulation trial. New diagnosis of cancer in past 12 No months? Rehab PT IP Eval Objective Appearance Patient Behavior Wandering,Confused Patient Orientation Person Difficulty following instructions moderate Speech Pattern Mumbled Ambulation Patient Able to Ambulate Yes Ambulation Observation IP General Gait Pattern Observation Narrow Based Gait Ambulation Distance (feet) 20 Ambulation Assistive Device None Ambulation Ability Minimal x 2 (25% assist) Balance Ability to Arise Able, uses arms to help Sitting Balance Steady, safe Standing Balance Unsteady Dynamic Sitting Balance Ability Good Dynamic Standing Balance Ability Fair Transfers Bed Transfer Ability Supervision/Stand by Sit to Stand Bed Transfer Ability Contact Guard/Hand Hold Rehab PT IP prob,goals,plan Problems Date of Evaluation: 04/18/24 PT IP Problems Bed Mobility,Transfers,Gait, Balance,Safety Rehab Potential Rehab Potential Good Equipment Needs Assistive Devices Rolling / Wheeled Walker Plan PT Intervention Plan Bed Mobility,Transfers,Gait, Balance,Safety,Therapeutic Exercise Other Intervention Plan 1-2 times PT Plan Frequency Daily Duration LOS Discharge Goals Bed Transfer Ability Independent Sit to Stand Chair Transfer Ability Contact Guard/Hand Hold Ambulation Distance (feet) 30 Discharge Plan PT Discharge Plan Pt demo'd in room ambulation with impaired safety awareness and impaired balance. According to pt's history, pt lives at [facility]. Pt requires 01/12 supervision d/t his mobility and safety awareness impairments at this time. Pt would benefit from skilled rehab placement upon d/c from [facility]. Pt would benefit from skilled acute care PT while at [facility] to prevent further functional decline. Eval Complexity Eval Charge Codes 48494 - Moderate Complexity PHYSICIAN CERTIFICATION: I certify the specified therapy services for Kar Villaloobs are required, authorized, and reviewed every 30 days.
[2024-04-18] MEDS: BENZTROPINE 1MG TABLET 1 MG PO ×3 (10:31→20:12)
[2024-04-18] MEDS: DOCUSATE SODIUM 100 MG CAPSULE PO (10:31)
[2024-04-18] MEDS: DIVALPROEX 250MG (EXTENDED-RELEASE) TABLET 500 MG PO ×2 (10:35→20:08)
[2024-04-18] MEDS: risperiDONE 1MG TABLET 4 MG PO ×2 (10:36→20:08)
[2024-04-18] MEDS: 0.9 % SODIUM CHLORIDE 500 ML 999 ML IV (10:36)
--- NOTE | 2024-04-18 10:40 | HMH.OTEV ---
OT Inpatient Evaluation Rehab OT IP Evaluation Start: 04/18/24 20:48 Freq: ONCE Status: Active Protocol: Document 04/18/24 10:33 CHARLOTTE (Rec: 04/18/24 10:40 CHARLOTTE [id number]) Rehab OT IP Assessment Subjective History This is a 63-year-old male that presents to [facility] emergency department from his residential facility [facility] in [facility]. History is acquired from the ED provider and electronic medical record. His past medical history is significant for psychiatric disorder on chronic antipsychotic therapy with presenting ataxia and frequent falls. He has a chronic diagnoses of dementia with previous hospitalization in November 2023 identifying the need for geriatric psychiatry and neurology evaluations. He has had several ED evaluations since November for tremors and falls. Previous CT head imaging has identified ventriculomegaly. Patient is a poor historian and unable to provide accurate PLOF with ADLs, fx'l mobility and setting. Subjective hmmm. Patient required verbal and tactile cueing throughout session due to fatigue and continuing to fall asleep during initial evaluation. Instructed Patient on proper hand and foot placement to complete bed mobility from supine->sit @ EOB->stand requiring Min A. Patient stood up and urinated on the floor. Patient required Max A for TB drsg, brief changing and hygiene. Patient ambulated within the room ~10ft with needing Max cueing and falling asleep with leaning forward. Patient required assistance from OT to prevent fall risk. Assisted patient back in bed with needs met at end of session. Objective Patient Orientation Person,Place,Name,Age Right Upper Extremity Gross ROM WFL Left Upper Extremity Gross ROM WFL Bed Mobility bed mobility - supine/sit Assist Level Contact Guard/Hand Hold Transfer Training Sit/Stand Transfer Assist Level Minimal x 2 (25% assist) Chair Transfer Ability Minimal x 2 (25% assist) Rehab OT IP prob,goals,plan Problems Date of Evaluation: 04/18/24 OT IP Problems Bed Mobility,Transfers,Balance ,Self care,Safety Rehab Potential Rehab Potential Good Plan OT intervention Plan Bed Mobility,Transfers,Balance ,Self care,Safety,Therapeutic Exercise OT Plan Frequency BID Discharge Goals Bed Mobility Ability Assistance x1 Sit to Stand Chair Transfer Ability Contact Guard/Hand Hold Chair Transfer Ability Minimal x 1 (25% assist) Chair Transfer Technique Sit to/from Ambulatory Discharge Plan OT Discharge Plan Unsure of patient's baseline. However Patient required max verbal and tactile cueing to complete TB drsg and hygiene correctly as well as safely. Patient unsteadiness on B LE with falling asleep during fx' l mobility tasks. Increase fall risk during session. Patient to continue skilled OT IP services while here at [facility] til d/c. Recommend placement at this time. Eval Complexity Eval Charge Codes 81641 - Low Complexity PHYSICIAN CERTIFICATION: I certify the specified therapy services for Kar Villalobos are required, authorized, and reviewed every 30 days.
[2024-04-18 11:25] LABS: Thyroid Stimulating Hormone 1.71 uIU/mL (0.465-4.68)
[2024-04-18] MEDS: CEFTRIAXONE 1 GM 1 GM in 0.9 % SODIUM CHLORIDE 50 ML IV (11:29)
--- NOTE | 2024-04-18 11:59 | SW/DCPLANNER ---
Addendum entered by [facility] 05/03/24 11:42: Per patient is medically stable for discharge and physically able to return back to [facility] w/ APS to complete to Guardianship process once he returns. Lexi royal/ [facility] is agreeable for patient to return and they will be able to transport if ready by 2PM. I will relay information to nursing staff, and Mera w/ BRISEYDA. Addendum entered by [facility] 05/02/24 09:46: Per Mera w/ Guardianship she is still searching for family members at this time. I have updated Mera regarding nursing documentation of patient's family members. Addendum entered by [facility] 04/28/24 08:07: Per Mera w/ APS she is still searching for family members at this time. Mera stated that next step will be to request a meeting w/ Guardianship team if family members can not be located. Addendum entered by [facility] 04/25/24 08:51: Per Mera w/ APS she is currently in the process of determining if patient has any family members. I will continue to request updates from APS and Guardianship process. Addendum entered by [facility] 04/22/24 08:14: I spoke w/ Suma (Fin Counselor) regarding starting the Medicaid process for this patient. Per Mera she is still working on Guardianship process. Mera has also stated that if patient does become physically able to return to [facility] he can and Guardianship process be completed once he returns. I will continue to follow up w/ dinorah, , BRISEYDA and [facility]. Addendum entered by [facility] 04/19/24 13:38: Per Mera w/ BRISEYDA patient scored a 4/30 on mini mental. Patient will require a Guardian and Mera will begin this process. I have updated [facility] and . Addendum entered by [facility] 04/19/24 08:00: Mera w/ APS will be onsite to evaluate this patient today. Addendum entered by [facility] 04/18/24 12:48: Per [facility] this case does meet criteria for investigation. Original Note: This patient currently resides at [facility]. [facility] patient has been going downhill for awhile mentally and physically. PT/OT evaluated patient and recommended SNF level of care. Patient is only oriented to self (name and ). Patient was not able to answer where he lives, where he is currently at, what brought him to [facility] or the year. Patient does not have any family/friend involvement. Due to situation I have made a report to APS for Guardianship. I will continue to follow up w/ patient, BRISEYDA Rae and . ID#[id number]
[2024-04-18 12:01] LABS: Folate 8.16 ng/mL; Vitamin B12 356 pg/mL (239-931)
[2024-04-18 14:48] VITALS: BMI 21.1
[2024-04-18 15:36] LABS: POC Glucose,Bedside 85 (70-110)
[2024-04-18 16:00] VITALS: BP 90/43; PULSE 54; RESP 18; O2SAT 96
[2024-04-18 20:00] VITALS: BP 126/66; PULSE 63; RESP 18; TEMP 36.9; O2SAT 98
[2024-04-18] MEDS: DONEPEZIL 10MG TAB 10 MG PO (20:09)
[2024-04-18] MEDS: ENOXAPARIN 40MG/0.4ML SYRINGE 40 MG SUBCUT (20:11)
[2024-04-18] MEDS: LORazepam 2MG/ML VIAL 0.5 MG IV (20:12)
[2024-04-18] MEDS: PANTOPRAZOLE 40MG TABLET 40 MG PO (20:12)
--- NOTE | 2024-04-18 21:44 | EXP.PN ---
Subjective *Date: 04/19/24 *Time: 22:16 Interval history: Unfortunately, due to likely advancing dementia and ventriculomegaly patient is unable to good have judgement of decisions at this time. He is often unintelligible, but can hold somewhat of a conversation. He is currently AOx1. For this reason, I do not believe patient has decision making capacity. We will attempt to find a smith for this patient. Exam Data for Last 24 hours Vital signs and Labs for Last 24 Hours: Temp Pulse Resp BP Pulse Ox O2 Del Method 98.5 F 63 18 126/66 98 Room Air 04/18/24 20:00 04/18/24 20:00 04/18/24 20:00 04/18/24 20:00 04/18/24 20:00 04/18/24 20:00 Laboratory Results - last 24 hr 04/17/24 16:34: Vitamin B12 418 04/17/24 21:55: Ammonia < 9 L 04/18/24 06:30: Sodium 137, Potassium 3.8, Chloride 107, Carbon Dioxide 28, Anion Gap 5.8, BUN 14 D, Creatinine 0.70 D, Estimated Creat Clear 73, Estimated GFR 114, Est GFR ( Amer) 138 D, Glucose 81 D, Calcium 8.3 L, Magnesium 2.2 D, Vitamin B12 356, Folate 8.16, TSH 1.71, Free T4 0.83 04/18/24 08:37: POC Glucose 85 I & O for Last 24 hours: Intake & Output 04/15/24 04/16/24 04/17/24 04/18/24 23:59 23:59 23:59 23:59 Intake Total 1074 / 1074 Output Total 0 / 0 Balance 1074 / 1074 Weight 66.996 kg 66.99 kg Assessment and Plan *Assessment and plan (1) Parkinson's disease (tremor, stiffness, slow motion, unstable posture): Status: Acute Category: Medical Code(s): G20.A1 - Parkinson's disease without dyskinesia, without mention of fluctuations (2) NPH (normal pressure hydrocephalus): Status: Acute Category: Medical Code(s): G91.2 - (Idiopathic) normal pressure hydrocephalus (3) Falls frequently: Status: Acute Category: Medical Code(s): R29.6 - Repeated falls (4) Dementia: Status: Acute Category: Medical Code(s): F03.90 - Unspecified dementia, unspecified severity, without behavioral disturbance, psychotic disturbance, mood disturbance, and anxiety (5) Mood disorder: Status: Acute Category: Medical Code(s): F39 - Unspecified mood [affective] disorder Plan This is a 63-year-old male that resides at [facility] with ~5 months of identified increase in falls. Previous hospitalization at [facility] November 2023 identified chronic psychiatric disorder, dementia and ventriculomegaly on CT head. Problems addressed as follows: Parkinson's disease Dementia Frequent falls Chronic antipsychotic therapy Concerns for normal pressure hydrocephalus with previous neuroimaging identifying ventriculomegaly CT cervical, thoracic and lumbar spine with degenerative changes and no acute fractures - PT/OT consulted, recommended SNF placement. Case management consult for next site of care. - Unfortunately, due to likely advancing dementia and ventriculomegaly patient is unable to good have judgement of decisions at this time. He is often unintelligible, but can hold somewhat of a conversation. He is currently AOx1. For this reason, I do not believe patient has decision making capacity. We will attempt to find a smith for this patient. - Continue donepizil, memantine. - Continue respiridone 4mg BID. - Will need neurology follow-up outpatinet. Left fourth digit fracture Splint care - Orthopedic surgery consulted, pending recommendations. Seizure disorder Seizure precautions Divalproex ER therapy Mood disorder Residential living Routine nursing interaction Antipsychotic therapy Outpatient follow-up with psychiatry
[2024-04-19 04:00] VITALS: BP 98/44; PULSE 47; RESP 16; TEMP 36.6; O2SAT 95; BMI 20.5
--- NOTE | 2024-04-19 06:40 | PC.NURSE ---
Pt has remained alert only to self and has tolerated room air. Lung sounds clear and bowel sounds active. Pt no longer 1:1 observation. He has tried to get out of bed multiple times but is easily redirected. Bed alarm has remained on. He is a x1 assist to the bathroom. Currently asleep with call light within reach.
[2024-04-19 08:00] VITALS: BP 106/54; PULSE 48; RESP 16; TEMP 36.6; O2SAT 97
[2024-04-19] MEDS: risperiDONE 1MG TABLET 4 MG PO ×2 (09:25→20:43)
[2024-04-19] MEDS: BENZTROPINE 1MG TABLET 1 MG PO ×3 (09:25→20:43)
[2024-04-19] MEDS: DOCUSATE SODIUM 100 MG CAPSULE PO (09:25)
[2024-04-19] MEDS: DIVALPROEX 250MG (EXTENDED-RELEASE) TABLET 500 MG PO ×2 (09:26→20:44)
[2024-04-19] MEDS: CEFTRIAXONE 1 GM 1 GM in 0.9 % SODIUM CHLORIDE 50 ML IV (10:11)
[2024-04-19 16:00] VITALS: BP 109/47; PULSE 46; RESP 16; TEMP 36.6; O2SAT 94
--- NOTE | 2024-04-19 16:22 | P.CONS_ITS ---
History of Present Illness *Admission Date: 04/17/24 *History of present illness: This is a 63-year-old male that presents to [facility] emergency department from his residential facility [facility] in [facility]. History is acquired from the ED provider and electronic medical record. His past medical history is significant for psychiatric disorder on chronic antipsychotic therapy with presenting ataxia and frequent falls. He has a chronic diagnoses of dementia with previous hospitalization in November 2023 identifying the need for geriatric psychiatry and neurology evaluations. He has had several ED evaluations since November for tremors and falls. Previous CT head imaging has identified ventriculomegaly. He suffered a fall and had swelling of the left hand x-rays revealed fracture of the proximal phalanx ring finger. Orthopedics consulted regarding treatment options for this particular fracture. [facility] Disclaimer: The information contained in this section may have been updated after the patient was seen, as this information can be updated by other users. Medical History (Updated 04/19/24 @ 16:28 by Phuc Arzate DO) Mood disorder Dementia Epilepsy Family History Other No significant family history Social History (Updated 11/30/23 @ 23:09 by Yudi Rubin RN) Smoking Status: Current every day smoker alcohol intake: never current occupational status: retired Travel in the last 8 weeks: None Meds Home Medications and Allergies Home Medications ?Medication ?Instructions ?Recorded ?Confirmed ?Type divalproex 500 mg tablet,extended 500 mg PO BID 02/07/24 04/18/24 History release 24 hr pantoprazole 40 mg tablet,delayed 40 mg PO DAILY 02/07/24 04/18/24 History release benztropine 1 mg tablet 1 mg PO TID 04/18/24 04/18/24 History cholecalciferol (vitamin D3) 125 125 mcg PO WEEKLY 04/18/24 04/18/24 History mcg (5,000 unit) tablet (Vitamin D3) cyanocobalamin (vitamin B-12) 100 100 mcg PO DAILY 04/18/24 04/18/24 History mcg tablet donepezil 10 mg tablet 10 mg PO HS 04/18/24 04/18/24 History haloperidol 5 mg tablet 5 mg PO BID 04/18/24 04/18/24 History hydroxyzine pamoate 50 mg capsule 50 mg PO HS 04/18/24 04/18/24 History ibuprofen 400 mg tablet 400 mg PO QIDP PRN Pain (Scale 04/18/24 04/18/24 History Score 1-6) melatonin 3 mg tablet 3 mg PO HS 04/18/24 04/18/24 History memantine 5 mg tablet 5 mg PO AM 04/18/24 04/18/24 History quetiapine 50 mg tablet 50 mg PO HS 04/18/24 04/18/24 History risperidone 4 mg tablet 4 mg PO BID 04/18/24 04/18/24 History sennosides 8.6 mg-docusate sodium 1 tab PO BID 04/18/24 04/18/24 History 50 mg tablet (Senna with Docusate Sodium) thiamine HCl (vitamin B1) 100 mg 100 mg PO DAILY 04/18/24 04/18/24 History tablet trazodone 50 mg tablet 50 mg PO HS 04/18/24 04/18/24 History New Prescriptions to Start Prescriptions: Allergies Allergy/AdvReac Type Severity Reaction Status Date / Time No Known Allergies Allergy Verified 11/29/23 18:45 Ortho Exam (Inpt) Vital signs and Labs for Last 24 Hours: Temp Pulse Resp BP Pulse Ox O2 Del Method 97.8 F 48 L 16 106/54 L 97 Room Air 04/19/24 08:00 04/19/24 08:00 04/19/24 08:00 04/19/24 08:00 04/19/24 08:00 04/19/24 15:00 I & O for Labs for Last 24 Hours: Intake & Output 04/16/24 04/17/24 04/18/24 04/19/24 23:59 23:59 23:59 23:59 Intake Total 1074 / 1474 870 / 870 Output Total 0 / 250 250 / 250 Balance 1074 / 1224 620 / 620 Weight 147 lb 11.2 oz 147 lb 11.003 oz 143 lb 3.2 oz Microbiology Reports for the Last 24 Hours: Microbiology 04/17/24 20:12 Urine,Clean Catch Urine Culture - Final No growth. Comment:: Examination left ring finger shows ecchymosis and swelling at the PIP joint and distal to the finger. He is able to fully flex the finger with minimal pain at the PIP joint. No lacerations open wounds. No rotational deformity. X-rays left hand show nondisplaced fracture distal aspect of the proximal phalanx ring finger left hand. Results Labs 04/17/24 16:34 04/18/24 06:30 Labs: H & H 04/17/24 Range/Units 16:34 Hgb 14.1 (14.1-18.0) g/dL Hct 39.1 L (42.0-52.0) % All other labs normal. Assessment and Plan *Assessment and plan (1) Fracture of proximal phalanx of left ring finger: Status: Acute Qualifiers: Encounter type: initial encounter Fracture type: closed Fracture alignment: nondisplaced Qualified Code(s): S62.645A - Nondisplaced fracture of proximal phalanx of left ring finger, initial encounter for closed fracture Category: Medical Code(s): S62.615A - Displaced fracture of proximal phalanx of left ring finger, initial encounter for closed fracture Plan Nonoperative treatment is indicated for this particular fracture. I dante taped his finger ring finger to middle finger this will be adequate treatment to allow this to heal. Patient voices understanding in regards to dante taping the fingers. I left the [place] wrapping for him to continue this for immobilization. He is allowed to use the finger as tolerated but use the dante taping to protect the ring finger until swelling resolves and fracture starts to heal No operative intervention is necessary and conservative treatment is indicated.
--- NOTE | 2024-04-19 17:47 | PC.NURSE ---
PT HAS DONE FAIR TODAY. AMBULATING WITH X1 ASSIST. EASILY REDIRECTABLE. ONLY ALERT TO SELF. BED ALARM IN PLACE FOR PT SAFETY. VSS.
[2024-04-19 19:52] VITALS: BP 108/59; PULSE 63; RESP 18; TEMP 36.8; O2SAT 97
[2024-04-19 20:00] VITALS: O2SAT 97
[2024-04-19] MEDS: DONEPEZIL 10MG TAB 10 MG PO (20:42)
[2024-04-19] MEDS: ENOXAPARIN 40MG/0.4ML SYRINGE 40 MG SUBCUT (20:42)
[2024-04-19] MEDS: PANTOPRAZOLE 40MG TABLET 40 MG PO (20:42)
[2024-04-19] MEDS: TRAZODONE 50MG TABLET 50 MG PO (20:43)
--- NOTE | 2024-04-19 22:23 | EXP.PN ---
Subjective *Date: 04/19/24 *Time: 22:23 Interval history: Patient is very pleasant and more conversational today, but is often confused. Continues to be AOx1. Exam Data for Last 24 hours Vital signs and Labs for Last 24 Hours: Temp Pulse Resp BP Pulse Ox O2 Del Method 98.2 F 63 18 108/59 L 97 Room Air 04/19/24 19:52 04/19/24 19:52 04/19/24 19:52 04/19/24 19:52 04/19/24 20:00 04/19/24 21:00 I & O for Last 24 hours: Intake & Output 04/16/24 04/17/24 04/18/24 04/19/24 23:59 23:59 23:59 23:59 Intake Total 1074 / 1474 870 / 870 Output Total 0 / 250 250 / 250 Balance 1074 / 1224 620 / 620 Weight 66.996 kg 66.99 kg 64.954 kg Microbiology Reports for the Last 24 Hours: Microbiology 04/17/24 20:12 Urine,Clean Catch Urine Culture - Final No growth. Constitutional Constitutional: no acute distress *Routine HEENT Exam Head: Present normocephalic Eye: Present EOMI and PERRL ENT: Present mucous membranes moist *Routine Neck Exam Neck: Present supple; Absent lymphadenopathy *Routine Respiratory Exam Respiratory: Present CTA bilaterally *Routine Cardiovascular Exam Cardiovascular: Present RRR *Routine Abdominal Exam Abdominal: Present soft and normoactive bowel sounds; Absent tenderness *Routine Extremities Exam Extremities: Absent cyanosis, clubbing or edema *Routine Skin Exam Skin: Present warm; Absent rash *Routine Neurological Exam Neurological: Present alert Comments: Pleasant and can hold somewhat of a conversation, but often confused and unintelligible. Assessment and Plan *Assessment and plan (1) Fracture of proximal phalanx of left ring finger: Status: Acute Qualifiers: Encounter type: initial encounter Fracture type: closed Fracture alignment: nondisplaced Qualified Code(s): S62.645A - Nondisplaced fracture of proximal phalanx of left ring finger, initial encounter for closed fracture Category: Medical Code(s): S62.615A - Displaced fracture of proximal phalanx of left ring finger, initial encounter for closed fracture (2) Parkinson's disease (tremor, stiffness, slow motion, unstable posture): Status: Acute Category: Medical Code(s): G20.A1 - Parkinson's disease without dyskinesia, without mention of fluctuations (3) Mood disorder: Status: Acute Category: Medical Code(s): F39 - Unspecified mood [affective] disorder (4) Dementia: Status: Acute Category: Medical Code(s): F03.90 - Unspecified dementia, unspecified severity, without behavioral disturbance, psychotic disturbance, mood disturbance, and anxiety (5) Finger fracture, left: Status: Acute Qualifiers: Encounter type: initial encounter Finger: ring finger Fracture alignment: nondisplaced Fracture type: closed Phalanx: proximal Qualified Code(s): S62.645A - Nondisplaced fracture of proximal phalanx of left ring finger, initial encounter for closed fracture Category: Medical Code(s): S62.609A - Fracture of unspecified phalanx of unspecified finger, initial encounter for closed fracture (6) Falls frequently: Status: Acute Category: Medical Code(s): R29.6 - Repeated falls Plan This is a 63-year-old male that resides at [facility] with ~5 months of identified increase in falls. Previous hospitalization at [facility] November 2023 identified chronic psychiatric disorder, dementia and ventriculomegaly on CT head. Problems addressed as follows: Parkinson's disease Dementia Frequent falls Chronic antipsychotic therapy Concerns for normal pressure hydrocephalus with previous neuroimaging identifying ventriculomegaly CT cervical, thoracic and lumbar spine with degenerative changes and no acute fractures - PT/OT consulted, recommended SNF placement. Case management consult for next site of care. - Unfortunately, due to likely advancing dementia and ventriculomegaly patient is unable to good have judgement of decisions at this time. Patient is very pleasant and more conversational today, but is often confused. Continues to be AOx1. For this reason, I do not believe patient has decision making capacity. We will attempt to find a smith for this patient. - APS evaluated patient and agreed patient needed a smith. - Continue donepizil, memantine. - Continue respiridone 4mg BID. - Restart seroquel 50mg qhs due to nighttme agitation. - Will need neurology follow-up outpatinet. Left fourth digit fracture Splint care - Orthopedic surgery consulted, pending recommendations. Seizure disorder Seizure precautions Divalproex ER therapy Mood disorder Residential living Routine nursing interaction Antipsychotic therapy Outpatient follow-up with psychiatry
[2024-04-19] MEDS: PATIENT'S OWN HOME MEDICATION (Quetiapine 50 mg tablet) 50 EACH PO (22:36)
[2024-04-20 04:00] VITALS: BP 95/53; PULSE 45; RESP 16; TEMP 36.5; O2SAT 96; BMI 21.0
--- NOTE | 2024-04-20 04:41 | PC.NURSE ---
63 yo male pt admitted with AMS and frequent falls. Pt is alert and oriented to self only. Pt denied pain throughout shift. He was very restless early in the shift frequently trying to get OOB without assist. Quetiapine given per MAR and was effective for restlessness. Pt does have bed alarm. Nurse had some difficulty administering meds as pt let them fall from his mouth and spit them out at times. He has voided using urinal. He did walk around the unit with the assist of [employer] and tolerated well. Seizure precautions in place. VS WNL for pt
[2024-04-20 07:54] VITALS: BP 96/47; PULSE 46; RESP 14; TEMP 36.6; O2SAT 96
[2024-04-20] MEDS: DIVALPROEX 250MG (EXTENDED-RELEASE) TABLET 500 MG PO ×2 (08:14→08:18)
[2024-04-20] MEDS: BENZTROPINE 1MG TABLET 1 MG PO ×3 (08:17→20:15)
[2024-04-20] MEDS: MEMANTINE 10MG TABLET 5 MG PO (08:18)
[2024-04-20] MEDS: risperiDONE 1MG TABLET 4 MG PO ×2 (08:18→20:15)
[2024-04-20] MEDS: DOCUSATE SODIUM 100 MG CAPSULE PO (08:18)
[2024-04-20 08:24] LABS: MANUAL DIFFERENTIAL MANUAL DIFFERENTIAL (MANUAL DIFF)
[2024-04-20 08:31] LABS: Basophils # 0.1 K/mm3 (0-0.2); Eosinophils # 0.1 K/mm3 (0.0-0.4); Eosinophils % 2.5 % (0.1-12.0); Hemoglobin 12.8 g/dL (14.1-18.0); Lymphocytes # 2.7 K/mm3 (0.7-4.5); Lymphocytes % 54.5 % (10-50); Mean Corpuscular HGB Conc 33.8 g/dL (31.8-35.4); Mean Corpuscular Hemoglobin 35.6 pg (27.0-31.2); Mean Corpuscular Volume 105.3 fl (80-94); Mean Platelet Volume 8.8 fl (7.4-10.4); Monocytes # 0.4 K/mm3 (0.1-1.0); Monocytes % 8.3 % (1.7-9.3); Neutrophils # 1.6 K/mm3 (1.8-7.8); Neutrophils % 33.7 % (37.0-80.0); Platelet Count 91 K/mm3 (142-424); Red Blood Count 3.61 M/mm3 (4.60-6.20); Red Cell Distribution Width 13.8 % (11.5-17.5); White Blood Count 4.9 K/mm3 (4.8-10.8)
[2024-04-20 08:45] LABS: Chloride 106 mmol/L (98-107); Potassium 3.8 mmoL/L (3.5-5.1); Sodium 135 mmol/L (136-145)
[2024-04-20 08:48] LABS: Anion Gap 2.8 mEq/L (5-15); Blood Urea Nitrogen 11 mg/dl (9-20); Calcium 8.6 mg/dl (8.4-10.2); Carbon Dioxide 30 mmol/L (22.0-30.0); Creatinine Clearance Estimated 72 mL/min (50-200); Estimated Glomerular Filt Rate 114 ml/min (>60); GFR (African American) 138 ML/MIN (>60); Glucose 83 mg/dl (74-100)
[2024-04-20 10:07] LABS: Albumin Level 2.9 g/dl (3.5-5.0); Chloride 106 mmol/L (98-107)
[2024-04-20 10:08] LABS: Potassium 3.8 mmoL/L (3.5-5.1); Sodium 135 mmol/L (136-145)
[2024-04-20 10:10] LABS: Alanine Aminotransferase 23 U/L (12-78); Anion Gap 1.8 mEq/L (5-15); Aspartate Amino Transferase 28 U/L (17-59); Blood Urea Nitrogen 11 mg/dl (9-20); Carbon Dioxide 31 mmol/L (22.0-30.0); Creatinine Clearance Estimated 72 mL/min (50-200); Estimated Glomerular Filt Rate 114 ml/min (>60); GFR (African American) 138 ML/MIN (>60)
[2024-04-20 10:11] LABS: Alkaline Phosphatase 77 U/L (38-126); Bilirubin,Total 0.4 mg/dl (0.2-1.3); Calcium 8.5 mg/dl (8.4-10.2); Glucose 82 mg/dl (74-100); Total Protein,Serum 5.9 g/dl (6.3-8.2)
[2024-04-20] MEDS: CEFTRIAXONE 1 GM 1 GM in 0.9 % SODIUM CHLORIDE 50 ML IV (10:20)
[2024-04-20 11:53] LABS: Eosinophils % 1 % (0-3); Lymphocytes % 55 % (10-50); Monocytes % 5 % (2-9); Neutrophils % 39 % (42-76); Total Cells Counted 100
[2024-04-20 11:54] LABS: Macrocytosis 2+; Platelet Estimate Slight Decrease
[2024-04-20 15:58] VITALS: BP 101/58; PULSE 53; RESP 16; TEMP 36.6; O2SAT 97
[2024-04-20 20:00] VITALS: BP 145/65; PULSE 69; RESP 17; TEMP 36.9; O2SAT 96
[2024-04-20] MEDS: TRAZODONE 50MG TABLET 50 MG PO (20:13)
[2024-04-20] MEDS: DONEPEZIL 10MG TAB 10 MG PO (20:13)
[2024-04-20] MEDS: ENOXAPARIN 40MG/0.4ML SYRINGE 40 MG SUBCUT (20:15)
[2024-04-20] MEDS: PANTOPRAZOLE 40MG TABLET 40 MG PO (20:15)
[2024-04-20] MEDS: QUETIAPINE 100MG TABLET 50 MG PO (20:16)
--- NOTE | 2024-04-20 21:54 | EXP.PN ---
Subjective *Date: 04/20/24 *Time: 21:54 Exam Data for Last 24 hours Vital signs and Labs for Last 24 Hours: Temp Pulse Resp BP Pulse Ox O2 Del Method 98.4 F 69 17 145/65 H 96 Room Air 04/20/24 20:00 04/20/24 20:00 04/20/24 20:00 04/20/24 20:00 04/20/24 20:00 04/20/24 21:00 Laboratory Results - last 24 hr 04/20/24 08:16: WBC 4.9, RBC 3.61 L, Hgb 12.8 L, Hct 38.0 L, MCV 105.3 H, MCH 35.6 H, MCHC 33.8, RDW 13.8, Plt Count 91 L, MPV 8.8, Neut % (Auto) 33.7 L, Lymph % (Auto) 54.5 H, [place] % (Auto) 8.3, Eos % (Auto) 2.5, Baso % (Auto) 1.0, Neut # (Auto) 1.6 L, Lymph # (Auto) 2.7, B[place] # (Auto) 0.4, Eos # (Auto) 0.1, Baso # (Auto) 0.1, Total Counted 100, Neutrophils % (Manual) 39 L, Lymphocytes % (Manual) 55 H, Monocytes % (Manual) 5, Eosinophils % (Manual) 1, Platelet Estimate Slight decrease, Macrocytosis 2+, Sodium 135 L 04/20/24 08:16: Sodium 135 L, Potassium 3.8 04/20/24 08:16: Potassium 3.8, Chloride 106 04/20/24 08:16: Chloride 106, Carbon Dioxide 30 04/20/24 08:16: Carbon Dioxide 31 H, Anion Gap 2.8 L 04/20/24 08:16: Anion Gap 1.8 L, BUN 11 04/20/24 08:16: BUN 11, Creatinine 0.70 04/20/24 08:16: Creatinine 0.70, Estimated Creat Clear 72 04/20/24 08:16: Estimated Creat Clear 72, Estimated GFR 114 04/20/24 08:16: Estimated GFR 114, Est GFR ( Amer) 138 04/20/24 08:16: Est GFR ( Amer) 138, Glucose 83 04/20/24 08:16: Glucose 82, Calcium 8.6 04/20/24 08:16: Calcium 8.5, Total Bilirubin 0.4, AST 28 D, ALT 23 D, Alkaline Phosphatase 77, Total Protein 5.9 L, Albumin 2.9 L, Globulin 3.0, Albumin/Globulin Ratio 1.0 L I & O for Last 24 hours: Intake & Output 04/17/24 04/18/24 04/19/24 04/20/24 23:59 23:59 23:59 23:59 Intake Total 1074 / 1474 870 / 870 1800 / 1800 Output Total 0 / 250 250 / 250 0 / 0 Balance 1074 / 1224 620 / 620 1800 / 1800 Weight 66.996 kg 66.99 kg 64.954 kg 66.814 kg Constitutional Constitutional: no acute distress *Routine HEENT Exam Head: Present normocephalic Eye: Present EOMI and PERRL ENT: Present mucous membranes moist *Routine Neck Exam Neck: Present supple; Absent lymphadenopathy *Routine Respiratory Exam Respiratory: Present CTA bilaterally *Routine Cardiovascular Exam Cardiovascular: Present RRR *Routine Abdominal Exam Abdominal: Present soft and normoactive bowel sounds; Absent tenderness *Routine Extremities Exam Extremities: Absent cyanosis, clubbing or edema *Routine Skin Exam Skin: Present warm; Absent rash *Routine Neurological Exam Neurological: Present alert Comments: Pleasant and can hold somewhat of a conversation, but often confused and unintelligible. Assessment and Plan *Assessment and plan (1) Fracture of proximal phalanx of left ring finger: Status: Acute Qualifiers: Encounter type: initial encounter Fracture type: closed Fracture alignment: nondisplaced Qualified Code(s): S62.645A - Nondisplaced fracture of proximal phalanx of left ring finger, initial encounter for closed fracture Category: Medical Code(s): S62.615A - Displaced fracture of proximal phalanx of left ring finger, initial encounter for closed fracture (2) Parkinson's disease (tremor, stiffness, slow motion, unstable posture): Status: Acute Category: Medical Code(s): G20.A1 - Parkinson's disease without dyskinesia, without mention of fluctuations (3) Mood disorder: Status: Acute Category: Medical Code(s): F39 - Unspecified mood [affective] disorder (4) Dementia: Status: Acute Category: Medical Code(s): F03.90 - Unspecified dementia, unspecified severity, without behavioral disturbance, psychotic disturbance, mood disturbance, and anxiety (5) Finger fracture, left: Status: Acute Qualifiers: Encounter type: initial encounter Finger: ring finger Fracture alignment: nondisplaced Fracture type: closed Phalanx: proximal Qualified Code(s): S62.645A - Nondisplaced fracture of proximal phalanx of left ring finger, initial encounter for closed fracture Category: Medical Code(s): S62.609A - Fracture of unspecified phalanx of unspecified finger, initial encounter for closed fracture (6) Falls frequently: Status: Acute Category: Medical Code(s): R29.6 - Repeated falls Plan This is a 63-year-old male that resides at [facility] with ~5 months of identified increase in falls. Previous hospitalization at [facility] November 2023 identified chronic psychiatric disorder, dementia and ventriculomegaly on CT head. Problems addressed as follows: Parkinson's disease Dementia Frequent falls Chronic antipsychotic therapy Concerns for normal pressure hydrocephalus with previous neuroimaging identifying ventriculomegaly CT cervical, thoracic and lumbar spine with degenerative changes and no acute fractures - PT/OT consulted, recommended SNF placement. Case management consult for next site of care. - Unfortunately, due to likely advancing dementia and ventriculomegaly patient is unable to good have judgement of decisions at this time. Patient is very pleasant and more conversational today, but is often confused. Continues to be AOx1. For this reason, I do not believe patient has decision making capacity. We will attempt to find a smith for this patient. - APS evaluated patient and agreed patient needed a smith. - Continue donepizil, memantine. - Continue respiridone 4mg BID. - Restart seroquel 50mg qhs due to nighttime agitation. - Will need neurology follow-up outpatient. Left fourth digit fracture Splint care - Orthopedic surgery consulted, dante taped 3rd and 4th fingers. This is a non-surgical healing process. Seizure disorder Seizure precautions Divalproex ER therapy Mood disorder History of schizophrenia Residential living Routine nursing interaction Antipsychotic therapy Outpatient follow-up with psychiatry
[2024-04-20] MEDS: diphenhydrAMINE 50MG/ML VIAL 50 MG IV (22:16)
--- NOTE | 2024-04-20 22:17 | EXP.EVENT.NO ---
Patient unable to sleep after trazodone, quetiapine, and Risperdal overnight. Will give patient 50 IV Benadryl x 1. If that does not work, will consider small dose p.o. Xanax.
[2024-04-21 04:00] VITALS: BP 109/60; PULSE 60; RESP 16; TEMP 36.6; O2SAT 97; BMI 21.4
--- NOTE | 2024-04-21 05:10 | PC.NURSE ---
63 yo male pt admitted with AMS and frequent falls. Pt is alert and oriented to self only. Pt has remained restless most of the shift only sleeping on and off. He was medicated per JUL then given Benedryl IV to aid with restlessness but only somewhat effective. Pt does have bed alarm. Meds administered with applesauce. Attempted to walk pt the [place] around the unit but pts legs became weak and shaky. Transferred to for safety. Seizure precautions in place. VS WNL for pt
[2024-04-21 08:00] VITALS: BP 102/59; PULSE 58; RESP 18; TEMP 36.7; O2SAT 96
[2024-04-21] MEDS: risperiDONE 1MG TABLET 4 MG PO ×2 (08:25→21:37)
[2024-04-21] MEDS: MEMANTINE 10MG TABLET 5 MG PO (08:25)
[2024-04-21] MEDS: BENZTROPINE 1MG TABLET 1 MG PO ×3 (08:25→21:37)
[2024-04-21] MEDS: DIVALPROEX 250MG (EXTENDED-RELEASE) TABLET 500 MG PO ×2 (08:26→21:37)
[2024-04-21] MEDS: DOCUSATE SODIUM 100 MG CAPSULE PO (08:26)
[2024-04-21 10:28] LABS: Basophils # 0.1 K/mm3 (0-0.2); Basophils % 1.7 % (0.1-2.0); Eosinophils # 0.1 K/mm3 (0.0-0.4); Eosinophils % 2.1 % (0.1-12.0); Hematocrit 37.6 % (42.0-52.0); Lymphocytes # 2.1 K/mm3 (0.7-4.5); Lymphocytes % 39.1 % (10-50); Mean Corpuscular HGB Conc 34.5 g/dL (31.8-35.4); Mean Corpuscular Hemoglobin 37.2 pg (27.0-31.2); Mean Corpuscular Volume 107.8 fl (80-94); Mean Platelet Volume 9.1 fl (7.4-10.4); Monocytes # 0.4 K/mm3 (0.1-1.0); Neutrophils # 2.7 K/mm3 (1.8-7.8); Neutrophils % 50.1 % (37.0-80.0); Platelet Count 110 K/mm3 (142-424); Red Blood Count 3.49 M/mm3 (4.60-6.20); Red Cell Distribution Width 13.8 % (11.5-17.5); White Blood Count 5.4 K/mm3 (4.8-10.8)
[2024-04-21 16:00] VITALS: BP 98/52; PULSE 50; RESP 17; TEMP 37
--- NOTE | 2024-04-21 18:39 | PC.NURSE ---
pt done okay ambulating to the br with sb assist and sometimes looses balance but when walking in hallway today pt suddenly start shuffling saying he was going to fall . assisted pt back to his room. otherwise pt has done well and no significant changes
[2024-04-21 20:00] VITALS: BP 112/59; PULSE 57; RESP 16; TEMP 36.7; O2SAT 98
[2024-04-21] MEDS: DONEPEZIL 10MG TAB 10 MG PO (21:37)
[2024-04-21] MEDS: QUETIAPINE 100MG TABLET 50 MG PO (21:37)
[2024-04-21] MEDS: TRAZODONE 50MG TABLET 50 MG PO (21:37)
[2024-04-21] MEDS: ENOXAPARIN 40MG/0.4ML SYRINGE 40 MG SUBCUT (21:37)
[2024-04-21] MEDS: PANTOPRAZOLE 40MG TABLET 40 MG PO (21:37)
--- NOTE | 2024-04-21 22:57 | P.PN_ITS ---
Subjective *Date: 04/22/24 *Time: 00:22 Interval history: Continues be very pleasant. No concerns today. Right neck laceration is present, present on admission. Social work will need to be updated, will need to reach out to [facility] regarding incident. Exam Data for Last 24 hours Vital signs and Labs for Last 24 Hours: Temp Pulse Resp BP Pulse Ox O2 Del Method 98.0 F 57 L 16 112/59 L 98 Room Air 04/21/24 20:00 04/21/24 20:00 04/21/24 20:00 04/21/24 20:00 04/21/24 20:00 04/21/24 21:00 Laboratory Results - last 24 hr 04/21/24 09:50: WBC 5.4, RBC 3.49 L, Hgb 13.0 L, Hct 37.6 L, MCV 107.8 H, MCH 37.2 H, MCHC 34.5, RDW 13.8, Plt Count 110 L, MPV 9.1, Neut % (Auto) 50.1, Lymph % (Auto) 39.1, Roberts % (Auto) 7.0, Eos % (Auto) 2.1, Baso % (Auto) 1.7, Neut # (Auto) 2.7, Lymph # (Auto) 2.1, Roberts # (Auto) 0.4, Eos # (Auto) 0.1, Baso # (Auto) 0.1 I & O for Last 24 hours: Intake & Output 04/18/24 04/19/24 04/20/24 04/21/24 23:59 23:59 23:59 23:59 Intake Total 1074 / 1474 870 / 870 1800 / 1800 1390 / 1390 Output Total 0 / 250 250 / 250 0 / 0 0 / 0 Balance 1074 / 1224 620 / 620 1800 / 1800 1390 / 1390 Weight 66.99 kg 64.954 kg 66.814 kg 67.824 kg Constitutional Constitutional: no acute distress *Routine HEENT Exam Head: Present normocephalic Eye: Present EOMI and PERRL ENT: Present mucous membranes moist *Routine Neck Exam Neck: Present supple; Absent lymphadenopathy Comments: Right neck healing laceration. *Routine Respiratory Exam Respiratory: Present CTA bilaterally *Routine Cardiovascular Exam Cardiovascular: Present RRR *Routine Abdominal Exam Abdominal: Present soft and normoactive bowel sounds; Absent tenderness *Routine Extremities Exam Extremities: Absent cyanosis, clubbing or edema *Routine Skin Exam Skin: Present warm; Absent rash *Routine Neurological Exam Neurological: Present alert Comments: Pleasant and can hold somewhat of a conversation, but often confused and unin telligible. Assessment and Plan *Assessment and plan (1) Fracture of proximal phalanx of left ring finger: Status: Acute Qualifiers: Encounter type: initial encounter Fracture type: closed Fracture alignment: nondisplaced Qualified Code(s): S62.645A - Nondisplaced fracture of proximal phalanx of left ring finger, initial encounter for closed fracture Category: Medical Code(s): S62.615A - Displaced fracture of proximal phalanx of left ring finger, initial encounter for closed fracture (2) Parkinson's disease (tremor, stiffness, slow motion, unstable posture): Status: Acute Category: Medical Code(s): G20.A1 - Parkinson's disease without dyskinesia, without mention of fluctuations (3) Mood disorder: Status: Acute Category: Medical Code(s): F39 - Unspecified mood [affective] disorder (4) Dementia: Status: Acute Category: Medical Code(s): F03.90 - Unspecified dementia, unspecified severity, without behavioral disturbance, psychotic disturbance, mood disturbance, and anxiety (5) Finger fracture, left: Status: Acute Qualifiers: Encounter type: initial encounter Finger: ring finger Fracture alignment: nondisplaced Fracture type: closed Phalanx: proximal Qualified Code(s): S62.645A - Nondisplaced fracture of proximal phalanx of left ring finger, initial encounter for closed fracture Category: Medical Code(s): S62.609A - Fracture of unspecified phalanx of unspecified finger, initial encounter for closed fracture (6) Falls frequently: Status: Acute Category: Medical Code(s): R29.6 - Repeated falls Plan This is a 63-year-old male that resides at [facility] with ~5 months of identified increase in falls. Previous hospitalization at [facility] November 2023 identified chronic psychiatric disorder, dementia and ventriculomegaly on CT head. Problems addressed as follows: Parkinson's disease Dementia Frequent falls Chronic antipsychotic therapy Concerns for normal pressure hydrocephalus with previous neuroimaging ident ifying ventriculomegaly CT cervical, thoracic and lumbar spine with degenerative changes and no acute fractures - PT/OT consulted, recommended SNF placement. Case management consult for next site of care. - Unfortunately, due to likely advancing dementia and ventriculomegaly patient is unable to good have judgement of decisions at this time. Patient is very pleasant and conversational, but is often confused. Continues to be AOx1. For this reason, I do not believe patient has decision making capacity. Attempting to find a smith for this patient. - APS evaluated patient and agreed patient needed a smith. - Continue donepizil, memantine. - Will need neurology follow-up outpatient. #Right neck laceration - Present on admission, I evaluated it further this evening and it is consistent with healing laceration. Inconsistent with a fall at this time. - Case management will need to be updated, and will need to reach out to [facility] C[facility] regarding incident. - Patient is unable to provide details given his dementia and memory impairment. Left fourth digit fracture Splint care - Orthopedic surgery consulted, dante taped 3rd and 4th fingers. This is a non- surgical healing process. Mood disorder History of schizophrenia Routine nursing interaction - Continue respiridone 4mg BID. - Restart seroquel 50mg qhs due to nighttime agitation. Outpatient follow-up with psychiatry Seizure disorder Seizure precautions Divalproex ER therapy
[2024-04-22 04:00] VITALS: BMI 21.4
--- NOTE | 2024-04-22 05:05 | PC.NURSE ---
Patient has slept well this shift. Patient had no complaints of pain. Ambulates to bathroom with standby assist. Patient remains A/O to self only. Administered medications with applesauce. Bed alarm on for safety. Call light within reach.
[2024-04-22 07:00] VITALS: BP 109/52; PULSE 52; RESP 16; TEMP 36.9; O2SAT 96; BMI 21.2
[2024-04-22] MEDS: MEMANTINE 10MG TABLET 5 MG PO (09:55)
[2024-04-22] MEDS: DOCUSATE SODIUM 100 MG CAPSULE PO (09:55)
[2024-04-22] MEDS: DIVALPROEX 250MG (EXTENDED-RELEASE) TABLET 500 MG PO ×2 (09:55→20:01)
[2024-04-22] MEDS: risperiDONE 1MG TABLET 4 MG PO ×2 (09:55→20:02)
[2024-04-22] MEDS: BENZTROPINE 1MG TABLET 1 MG PO ×3 (09:56→20:01)
[2024-04-22 12:00] VITALS: BP 102/56; PULSE 62; RESP 18; TEMP 36.7; O2SAT 99
--- NOTE | 2024-04-22 16:26 | P.PN_ITS ---
Subjective *Date: 04/22/24 *Time: 16:26 Interval history: Patient resting initially on exam. Evaluated after working with therapy. Pleasant. No acute distress. Given support needs, will need placement. Unstable to go back to his personal fdc. Medical Exam Vital signs and Labs for Last 24 Hours: Vital Signs Temp Pulse Resp BP Pulse Ox O2 Del Method 04/22/24 13:00 Room Air 04/22/24 12:00 98.1 F 62 18 102/56 L 99 Room Air 04/22/24 11:00 Room Air 04/22/24 09:00 Room Air 04/22/24 08:00 Room Air 04/22/24 07:00 98.4 F 52 L 16 109/52 L 96 Room Air 04/22/24 06:59 Room Air 04/22/24 04:59 Room Air 04/22/24 03:00 Room Air 04/22/24 01:00 Room Air 04/21/24 23:00 Room Air 04/21/24 21:00 Room Air 04/21/24 20:00 Room Air 04/21/24 20:00 98.0 F 57 L 16 112/59 L 98 Room Air 04/21/24 18:38 Room Air 04/21/24 17:00 Room Air Intake and Output 04/22/24 04/22/24 04/22/24 07:59 15:59 23:59 Intake Total 1080 / 1080 Output Total 0 / 0 Balance 0 / 1080 1080 / 1080 Intake: Intake, Oral Amount 1080 / 1080 Output: Output, Urine Amount 0 / 0 Other: Number of Unmeasured Voids 1 Number of Bowel Movements 1 Weight 67.404 kg Patient Weight 04/22/24 23:59 Weight 67.404 kg I & O for Labs for Last 24 Hours: Intake & Output 04/19/24 04/20/24 04/21/24 04/22/24 23:59 23:59 23:59 23:59 Intake Total 870 / 870 1800 / 1800 1390 / 1390 1080 / 1080 Output Total 250 / 250 0 / 0 0 / 0 0 / 0 Balance 620 / 620 1800 / 1800 1390 / 1390 1080 / 1080 Weight 64.954 kg 66.814 kg 67.824 kg 67.404 kg Constitutional: Present no acute distress, thin and chronically ill appearing Head: Present atraumatic and normocephalic ENT: Present normal exam Respiratory: Present normal respiratory effort; Absent respiratory distress, stridor, wheezes or crackles Cardiac: Present Reg Rate and Rhythm GI: Present soft and normal bowel sounds; Absent distention or tenderness Extremities: Present normal inspection and full ROM Skin: Present intact; Absent erythema Neuro: Present Grossly Intact, alert, awake and moves all extremities Comment:: Unsteady gait, shuffling gait Assessment and Plan *Assessment and plan (1) Fracture of proximal phalanx of left ring finger: Status: Acute Qualifiers: Encounter type: initial encounter Fracture type: closed Fracture alignment: nondisplaced Qualified Code(s): S62.645A - Nondisplaced fracture of proximal phalanx of left ring finger, initial encounter for closed fracture Category: Medical Code(s): S62.615A - Displaced fracture of proximal phalanx of left ring finger, initial encounter for closed fracture (2) Parkinson's disease (tremor, stiffness, slow motion, unstable posture): Status: Acute Category: Medical Code(s): G20.A1 - Parkinson's disease without dyskinesia, without mention of fluctuations (3) Mood disorder: Status: Acute Category: Medical Code(s): F39 - Unspecified mood [affective] disorder (4) Dementia: Status: Acute Category: Medical Code(s): F03.90 - Unspecified dementia, unspecified severity, without behavioral disturbance, psychotic disturbance, mood disturbance, and anxiety (5) Finger fracture, left: Status: Acute Qualifiers: Encounter type: initial encounter Finger: ring finger Fracture alignment: nondisplaced Fracture type: closed Phalanx: proximal Qualified Code(s): S62.645A - Nondisplaced fracture of proximal phalanx of left ring finger, initial encounter for closed fracture Category: Medical Code(s): S62.609A - Fracture of unspecified phalanx of unspecified finger, initial encounter for closed fracture (6) Falls frequently: Status: Acute Category: Medical Code(s): R29.6 - Repeated falls Plan This is a 63-year-old male that resides at [facility] with ~5 months of identified increase in falls. Previous hospitalization at [facility] November 2023 identified chronic psychiatric disorder, dementia and ventriculomegaly on CT head. Problems addressed as follows: Parkinson's disease Dementia Frequent falls Chronic antipsychotic therapy Concerns for normal pressure hydrocephalus with previous neuroimaging identifying ventriculomegaly CT cervical, thoracic and lumbar spine with degenerative changes and no acute fractures - PT/OT consulted, recommended SNF placement. Case management consult for next site of care. - Unfortunately, due to likely advancing dementia and ventriculomegaly patient is unable to good have judgement of decisions at this time. Patient is very pleasant and conversational, but is often confused. Continues to be AOx1. For this reason, I do not believe patient has decision making capacity. Attempting to find a smith for this patient. - APS evaluated patient and agreed patient needed a smith. - Continue donepizil, memantine. - Will need neurology follow-up outpatient. #Right neck laceration - Present on admission, I evaluated it further this evening and it is consistent with healing laceration. Inconsistent with a fall at this time. - Patient is unable to provide details given his dementia and memory impairment. Left fourth digit fracture Splint care; Orthopedic surgery consulted, dante taped 3rd and 4th fingers. This is a non-surgical healing process. Mood disorder History of schizophrenia Routine nursing interaction - Continue respiridone 4mg BID. - Restart seroquel 50mg qhs due to nighttime agitation. Outpatient follow-up with psychiatry Seizure disorder Seizure precautions Divalproex ER therapy Lab holiday today. Awaiting guardianship. Regular diet.
[2024-04-22 19:35] VITALS: BP 105/59; PULSE 64; RESP 16; TEMP 36.8; O2SAT 98
[2024-04-22] MEDS: ENOXAPARIN 40MG/0.4ML SYRINGE 40 MG SUBCUT (20:01)
[2024-04-22] MEDS: DONEPEZIL 10MG TAB 10 MG PO (20:01)
[2024-04-22] MEDS: QUETIAPINE 100MG TABLET 50 MG PO (20:01)
[2024-04-22] MEDS: PANTOPRAZOLE 40MG TABLET 40 MG PO (20:01)
[2024-04-22] MEDS: TRAZODONE 50MG TABLET 50 MG PO (20:02)
[2024-04-23 04:00] VITALS: BP 96/44; PULSE 50; RESP 16; TEMP 37.2; O2SAT 95; BMI 21.6
--- NOTE | 2024-04-23 07:52 | EXP.ACUTE.PN ---
Subjective *Date: 04/23/24 *Time: 17:22 Interval history: No complaints today. Stable on room air. Requiring assistance to ambulate. No nausea or vomiting. Medical Exam Vital signs and Labs for Last 24 Hours: Vital Signs Temp Pulse Resp BP Pulse Ox O2 Del Method 04/23/24 05:00 Room Air 04/23/24 04:00 99.0 F 50 L 16 96/44 L 95 Room Air 04/23/24 03:00 Room Air 04/23/24 01:00 Room Air 04/22/24 23:00 Room Air 04/22/24 21:00 Room Air 04/22/24 20:00 Room Air 04/22/24 19:35 98.3 F 64 16 105/59 L 98 Room Air 04/22/24 18:22 Room Air 04/22/24 17:35 Room Air 04/22/24 17:05 Room Air 04/22/24 17:00 Room Air 04/22/24 16:35 Room Air 04/22/24 16:05 Room Air 04/22/24 15:35 Room Air 04/22/24 15:20 Room Air 04/22/24 15:05 Room Air 04/22/24 15:00 Room Air 04/22/24 14:50 Room Air 04/22/24 13:00 Room Air 04/22/24 12:00 98.1 F 62 18 102/56 L 99 Room Air 04/22/24 11:00 Room Air 04/22/24 09:00 Room Air 04/22/24 08:00 Room Air Intake and Output 04/22/24 04/22/24 04/23/24 15:59 23:59 07:59 Intake Total 1080 / 1415 335 / 1415 Balance 1080 / 1415 335 / 1415 Intake: Intake, Oral Amount 1080 / 1415 335 / 1415 Other: Number of Unmeasured Voids 1 Number of Bowel Movements 1 Weight 68.606 kg Patient Weight 04/23/24 23:59 Weight 68.606 kg I & O for Labs for Last 24 Hours: Intake & Output 04/20/24 04/21/24 04/22/24 04/23/24 23:59 23:59 23:59 23:59 Intake Total 1800 / 1800 1390 / 1390 1415 / 1415 Output Total 0 / 0 0 / 0 0 / 0 Balance 1800 / 1800 1390 / 1390 1415 / 1415 Weight 66.814 kg 67.824 kg 67.404 kg 68.606 kg Constitutional: Present no acute distress, thin and chronically ill appearing Head: Present atraumatic and normocephalic ENT: Present normal exam Respiratory: Present normal respiratory effort; Absent respiratory distress, stridor, wheezes or crackles Cardiac: Present Reg Rate and Rhythm GI: Present soft and normal bowel sounds; Absent distention or tenderness Extremities: Present normal inspection and full ROM Skin: Present intact; Absent erythema Neuro: Present Grossly Intact, alert, awake and moves all extremities Comment:: Unsteady gait, shuffling gait Assessment and Plan *Assessment and plan (1) Fracture of proximal phalanx of left ring finger: Status: Acute Qualifiers: Encounter type: initial encounter Fracture alignment: nondisplaced Fracture type: closed Qualified Code(s): S62.645A - Nondisplaced fracture of proximal phalanx of left ring finger, initial encounter for closed fracture Category: Medical Code(s): S62.615A - Displaced fracture of proximal phalanx of left ring finger, initial encounter for closed fracture (2) Parkinson's disease (tremor, stiffness, slow motion, unstable posture): Status: Acute Category: Medical Code(s): G20.A1 - Parkinson's disease without dyskinesia, without mention of fluctuations (3) Mood disorder: Status: Acute Category: Medical Code(s): F39 - Unspecified mood [affective] disorder (4) Dementia: Status: Acute Category: Medical Code(s): F03.90 - Unspecified dementia, unspecified severity, without behavioral disturbance, psychotic disturbance, mood disturbance, and anxiety (5) Finger fracture, left: Status: Acute Qualifiers: Encounter type: initial encounter Finger: ring finger Fracture alignment: nondisplaced Fracture type: closed Phalanx: proximal Qualified Code(s): S62.645A - Nondisplaced fracture of proximal phalanx of left ring finger, initial encounter for closed fracture Category: Medical Code(s): S62.609A - Fracture of unspecified phalanx of unspecified finger, initial encounter for closed fracture (6) Falls frequently: Status: Acute Category: Medical Code(s): R29.6 - Repeated falls Plan This is a 63-year-old male that resides at [facility] with ~5 months of identified increase in falls. Previous hospitalization at [facility] November 2023 identified chronic psychiatric disorder, dementia and ventriculomegaly on CT head. Awaiting guardianship and placement. Problems addressed as follows: Parkinson's disease Dementia Frequent falls Chronic antipsychotic therapy Concerns for normal pressure hydrocephalus with previous neuroimaging identifying ventriculomegaly CT cervical, thoracic and lumbar spine with degenerative changes and no acute fractures - PT/OT consulted, recommended SNF placement. Case management consult for next site of care. - Unfortunately, due to likely advancing dementia and ventriculomegaly patient is unable to good have judgement of decisions at this time. Patient is very pleasant and conversational, but is often confused. Continues to be AOx1. For this reason, I do not believe patient has decision making capacity. Attempting to find a smith for this patient. - APS evaluated patient and agreed patient needed a smith. - Continue donepizil, memantine. - Will need neurology follow-up outpatient. #Right neck laceration - Present on admission, I evaluated it further this evening and it is consistent with healing laceration. Inconsistent with a fall at this time. - Patient is unable to provide details given his dementia and memory impairment. Left fourth digit fracture Splint care; Orthopedic surgery consulted, dante taped 3rd and 4th fingers. This is a non-surgical healing process. Mood disorder History of schizophrenia Routine nursing interaction - Continue respiridone 4mg BID. - Restart seroquel 50mg qhs due to nighttime agitation. Outpatient follow-up with psychiatry Seizure disorder Seizure precautions Divalproex ER therapy Lab holiday today. Awaiting guardianship. Regular diet.
[2024-04-23 08:00] VITALS: BP 92/42; PULSE 49; RESP 17; TEMP 37; O2SAT 95
[2024-04-23] MEDS: risperiDONE 1MG TABLET 4 MG PO ×2 (09:04→20:51)
[2024-04-23] MEDS: DIVALPROEX 250MG (EXTENDED-RELEASE) TABLET 500 MG PO ×2 (09:04→20:50)
[2024-04-23] MEDS: MEMANTINE 10MG TABLET 5 MG PO (09:05)
[2024-04-23] MEDS: BENZTROPINE 1MG TABLET 1 MG PO ×3 (09:05→20:50)
[2024-04-23] MEDS: DOCUSATE SODIUM 100 MG CAPSULE PO (09:05)
[2024-04-23 16:00] VITALS: BP 104/54; PULSE 87; RESP 18; TEMP 36.7; O2SAT 96
--- NOTE | 2024-04-23 18:10 | PC.NURSE ---
pt has been impulsive at times. bed alarm and chair alarms have remained in place for duration of shift.
[2024-04-23 20:00] VITALS: BP 110/58; PULSE 62; RESP 16; TEMP 36.5; O2SAT 97
[2024-04-23] MEDS: ENOXAPARIN 40MG/0.4ML SYRINGE 40 MG SUBCUT (20:50)
[2024-04-23] MEDS: PANTOPRAZOLE 40MG TABLET 40 MG PO (20:50)
[2024-04-23] MEDS: DONEPEZIL 10MG TAB 10 MG PO (20:50)
[2024-04-23] MEDS: QUETIAPINE 100MG TABLET 50 MG PO (20:50)
[2024-04-23] MEDS: TRAZODONE 50MG TABLET 50 MG PO (20:51)
[2024-04-24 04:00] VITALS: BMI 21.6
--- NOTE | 2024-04-24 04:32 | PC.NURSE ---
63 yo male pt admitted with AMS and frequent falls. Pt is alert and oriented to self only. Pt requires assist X 1 with transfers. He continues to attempt to climb over side rails and to get out of bed without assist. Pt does have bed alarm. Meds administered with applesauce. Pm Meds effective for comfort r/t restlessness. Seizure precautions in place. VS WNL for pt
[2024-04-24 08:00] VITALS: BP 99/46; PULSE 80; RESP 17; TEMP 36.7; O2SAT 97
--- NOTE | 2024-04-24 08:03 | EXP.ACUTE.PN ---
Subjective *Date: 04/24/24 *Time: 15:24 Interval history: No complaints today. Stable on room air. Requiring assistance to ambulate. No nausea or vomiting. Slept well overnight Medical Exam Vital signs and Labs for Last 24 Hours: Vital Signs Temp Pulse Resp BP Pulse Ox O2 Del Method 04/24/24 06:47 Room Air 04/24/24 05:00 Room Air 04/24/24 03:00 Room Air 04/24/24 01:00 Room Air 04/23/24 23:00 Room Air 04/23/24 21:00 Room Air 04/23/24 20:00 97.7 F 62 16 110/58 L 97 Room Air 04/23/24 20:00 Room Air 04/23/24 18:06 Room Air 04/23/24 17:00 Room Air 04/23/24 16:00 98.1 F 87 18 104/54 L 96 Room Air 04/23/24 15:00 Room Air 04/23/24 13:00 Room Air 04/23/24 11:00 Room Air 04/23/24 09:00 Room Air Intake and Output 04/23/24 04/24/24 04/24/24 23:59 07:59 15:59 Intake Total 600 / 1800 Output Total 0 / 0 Balance 600 / 1800 Intake: Intake, Oral Amount 600 / 1800 Output: Output, Urine Amount 0 / 0 Other: Number of Unmeasured Voids 1 Weight 68.606 kg Patient Weight 04/24/24 23:59 Weight 68.606 kg I & O for Labs for Last 24 Hours: Intake & Output 04/21/24 04/22/24 04/23/24 04/24/24 23:59 23:59 23:59 23:59 Intake Total 1390 / 1390 1415 / 1415 1800 / 1800 Output Total 0 / 0 0 / 0 0 / 0 Balance 1390 / 1390 1415 / 1415 1800 / 1800 Weight 67.824 kg 67.404 kg 68.606 kg 68.606 kg Constitutional: Present no acute distress, thin and chronically ill appearing Head: Present atraumatic and normocephalic ENT: Present normal exam Respiratory: Present normal respiratory effort; Absent respiratory distress, stridor, wheezes or crackles Cardiac: Present Reg Rate and Rhythm GI: Present soft and normal bowel sounds; Absent distention or tenderness Extremities: Present normal inspection and full ROM Skin: Present intact; Absent erythema Neuro: Present Grossly Intact, alert, awake and moves all extremities Comment:: Unsteady gait, shuffling gait Assessment and Plan *Assessment and plan (1) Fracture of proximal phalanx of left ring finger: Status: Acute Qualifiers: Encounter type: initial encounter Fracture type: closed Fracture alignment: nondisplaced Qualified Code(s): S62.645A - Nondisplaced fracture of proximal phalanx of left ring finger, initial encounter for closed fracture Category: Medical Code(s): S62.615A - Displaced fracture of proximal phalanx of left ring finger, initial encounter for closed fracture (2) Parkinson's disease (tremor, stiffness, slow motion, unstable posture): Status: Acute Category: Medical Code(s): G20.A1 - Parkinson's disease without dyskinesia, without mention of fluctuations (3) Mood disorder: Status: Acute Category: Medical Code(s): F39 - Unspecified mood [affective] disorder (4) Dementia: Status: Acute Category: Medical Code(s): F03.90 - Unspecified dementia, unspecified severity, without behavioral disturbance, psychotic disturbance, mood disturbance, and anxiety (5) Finger fracture, left: Status: Acute Qualifiers: Encounter type: initial encounter Finger: ring finger Fracture alignment: nondisplaced Fracture type: closed Phalanx: proximal Qualified Code(s): S62.645A - Nondisplaced fracture of proximal phalanx of left ring finger, initial encounter for closed fracture Category: Medical Code(s): S62.609A - Fracture of unspecified phalanx of unspecified finger, initial encounter for closed fracture (6) Falls frequently: Status: Acute Category: Medical Code(s): R29.6 - Repeated falls Plan This is a 63-year-old male that resides at [facility] with ~5 months of identified increase in falls. Previous hospitalization at [facility] November 2023 identified chronic psychiatric disorder, dementia and ventriculomegaly on CT head. Awaiting guardianship and placement. Problems addressed as follows: Parkinson's disease Dementia Frequent falls Chronic antipsychotic therapy Concerns for normal pressure hydrocephalus with previous neuroimaging identifying ventriculomegaly CT cervical, thoracic and lumbar spine with degenerative changes and no acute fractures - PT/OT consulted, recommended SNF placement. Case management consult for next site of care. - Unfortunately, due to likely advancing dementia and ventriculomegaly patient is unable to good have judgement of decisions at this time. Patient is very pleasant and conversational, but is often confused. Continues to be AOx1. For this reason, I do not believe patient has decision making capacity. Attempting to find a smith for this patient. - APS evaluated patient and agreed patient needed a smith. - Continue donepizil, memantine. - Will need neurology follow-up outpatient. #Right neck laceration - Present on admission, I evaluated it further this evening and it is consistent with healing laceration. Inconsistent with a fall at this time. - Patient is unable to provide details given his dementia and memory impairment. Left fourth digit fracture Splint care; Orthopedic surgery consulted, dante taped 3rd and 4th fingers. This is a non-surgical healing process. Mood disorder History of schizophrenia Routine nursing interaction - Continue respiridone 4mg BID. - Restart seroquel 50mg qhs due to nighttime agitation. Outpatient follow-up with psychiatry Seizure disorder Seizure precautions Divalproex ER therapy Lab holiday today. Awaiting guardianship. Regular diet. Will obtain BMP and CBC in the morning to monitor stability of electrolytes and kidney function
[2024-04-24] MEDS: MEMANTINE 10MG TABLET 5 MG PO (10:26)
[2024-04-24] MEDS: BENZTROPINE 1MG TABLET 1 MG PO ×2 (10:27→20:07)
[2024-04-24] MEDS: risperiDONE 1MG TABLET 4 MG PO ×2 (10:27→20:07)
[2024-04-24] MEDS: DIVALPROEX 250MG (EXTENDED-RELEASE) TABLET 500 MG PO ×2 (10:28→20:07)
[2024-04-24] MEDS: DOCUSATE SODIUM 100 MG CAPSULE PO (10:29)
[2024-04-24 16:00] VITALS: BP 100/54; PULSE 69; RESP 18; TEMP 37; O2SAT 90
--- NOTE | 2024-04-24 18:12 | PC.NURSE ---
ALERT TO SELF. ABLE TO FOLLOW MOST SIMPLE INSTRUCTIONS AND MAKE BASIC NEEDS KNOWN TO STAFF ALTHOUGH HE IS IMPULSIVE AT TIMES. BED ALARM HAS REMAINED IN PLACE T/O DURATION OF SHIFT.
[2024-04-24 20:00] VITALS: BP 100/57; PULSE 64; RESP 18; TEMP 37.1; O2SAT 97
[2024-04-24] MEDS: TRAZODONE 50MG TABLET 50 MG PO (20:07)
[2024-04-24] MEDS: QUETIAPINE 100MG TABLET 50 MG PO (20:07)
[2024-04-24] MEDS: DONEPEZIL 10MG TAB 10 MG PO (20:07)
[2024-04-24] MEDS: PANTOPRAZOLE 40MG TABLET 40 MG PO (20:07)
[2024-04-24] MEDS: ENOXAPARIN 40MG/0.4ML SYRINGE 40 MG SUBCUT (20:07)
--- NOTE | 2024-04-24 23:00 | PC.NURSE ---
report given to KODY Barba
[2024-04-25 04:00] VITALS: BP 87/55; PULSE 51; RESP 16; TEMP 36.5; O2SAT 96; BMI 22.6
--- NOTE | 2024-04-25 06:02 | PC.NURSE ---
Pt has remained alert to self and has tolerated room air. He has tried getting out of bed a few times without calling out and was easily redirected. He has ambulated to the bathroom with standby assist. No complaints at this time, call light within reach.
[2024-04-25 07:29] LABS: Chloride 106 mmol/L (98-107); Sodium 135 mmol/L (136-145)
[2024-04-25 07:32] LABS: Basophils % 0.6 % (0.1-2.0); Blood Urea Nitrogen 13 mg/dl (9-20); Carbon Dioxide 31 mmol/L (22.0-30.0); Creatinine Clearance Estimated 78 mL/min (50-200); Eosinophils # 0.1 K/mm3 (0.0-0.4); Eosinophils % 1.9 % (0.1-12.0); Estimated Glomerular Filt Rate 114 ml/min (>60); GFR (African American) 138 ML/MIN (>60); Hemoglobin 12.7 g/dL (14.1-18.0); Lymphocytes % 48.3 % (10-50); Mean Corpuscular HGB Conc 34.4 g/dL (31.8-35.4); Mean Corpuscular Hemoglobin 36.4 pg (27.0-31.2); Mean Platelet Volume 8.4 fl (7.4-10.4); Monocytes # 0.5 K/mm3 (0.1-1.0); Monocytes % 12.7 % (1.7-9.3); Neutrophils # 1.5 K/mm3 (1.8-7.8); Neutrophils % 36.6 % (37.0-80.0); Platelet Count 166 K/mm3 (142-424); Red Blood Count 3.49 M/mm3 (4.60-6.20); Red Cell Distribution Width 14.2 % (11.5-17.5); White Blood Count 4.2 K/mm3 (4.8-10.8)
[2024-04-25 07:33] LABS: Calcium 8.5 mg/dl (8.4-10.2); Glucose 90 mg/dl (74-100)
[2024-04-25 08:00] VITALS: BP 103/46; PULSE 60; RESP 18; TEMP 36.5; O2SAT 98
[2024-04-25] MEDS: VITAMIN B-12 1,000 MCG 1ML VIAL 1000 MCG IM (09:33)
[2024-04-25] MEDS: BENZTROPINE 1MG TABLET 1 MG PO ×3 (09:33→20:50)
[2024-04-25] MEDS: MEMANTINE 10MG TABLET 5 MG PO (09:33)
[2024-04-25] MEDS: risperiDONE 1MG TABLET 4 MG PO ×2 (09:33→20:50)
[2024-04-25] MEDS: DOCUSATE SODIUM 100 MG CAPSULE PO (09:33)
[2024-04-25] MEDS: DIVALPROEX 250MG (EXTENDED-RELEASE) TABLET 500 MG PO ×2 (09:33→20:50)
[2024-04-25 10:30] VITALS: BP 93/50; PULSE 90
--- NOTE | 2024-04-25 15:54 | EXP.ACUTE.PN ---
Subjective *Date: 04/25/24 *Time: 15:54 Interval history: No complaints today. Stable on room air. Requiring assistance to ambulate. No nausea or vomiting. Slept well overnight Medical Exam Vital signs and Labs for Last 24 Hours: Vital Signs Temp Pulse Resp BP Pulse Ox O2 Del Method 04/25/24 15:00 Room Air 04/25/24 13:00 Room Air 04/25/24 11:00 Room Air 04/25/24 10:30 90 93/50 L 04/25/24 09:00 Room Air 04/25/24 08:00 Room Air 04/25/24 08:00 97.7 F 60 18 103/46 L 98 Room Air 04/25/24 07:00 Room Air 04/25/24 05:00 Room Air 04/25/24 04:00 97.7 F 51 L 16 87/55 L 96 Room Air 04/25/24 03:00 Room Air 04/25/24 01:00 Room Air 04/24/24 23:00 Room Air 04/24/24 21:00 Room Air 04/24/24 20:00 Room Air 04/24/24 20:00 98.7 F 64 18 100/57 L 97 Room Air 04/24/24 18:14 Room Air 04/24/24 16:44 Room Air 04/24/24 16:00 98.6 F 69 18 100/54 L 90 L Room Air Intake and Output 04/24/24 04/25/24 04/25/24 23:59 07:59 15:59 Intake Total 480 / 1110 150 / 630 480 / 630 Output Total 300 / 300 0 / 0 Balance 180 / 810 150 / 630 480 / 630 Intake: Intake, Oral Amount 480 / 1110 150 / 630 480 / 630 Output: Output, Urine Amount 300 / 300 0 / 0 Other: Number of Unmeasured Voids 1 1 Weight 71.622 kg Patient Weight 04/25/24 23:59 Weight 71.622 kg Laboratory Results - last 24 hr 04/25/24 07:00: WBC 4.2 L, RBC 3.49 L, Hgb 12.7 L, Hct 37.0 L, MCV 106.0 H, MCH 36.4 H, MCHC 34.4, RDW 14.2, Plt Count 166 D, MPV 8.4, Neut % (Auto) 36.6 L, Lymph % (Auto) 48.3, [place] % (Auto) 12.7 H, Eos % (Auto) 1.9, Baso % (Auto) 0.6, Neut # (Auto) 1.5 L, Lymph # (Auto) 2.0, [place] # (Auto) 0.5, Eos # (Auto) 0.1, Baso # (Auto) 0.0, Sodium 135 L, Potassium 4.0, Chloride 106, Carbon Dioxide 31 H, Anion Gap 2.0 L, BUN 13, Creatinine 0.70, Estimated Creat Clear 78, Estimated GFR 114, Est GFR ( Amer) 138, Glucose 90, Calcium 8.5 I & O for Labs for Last 24 Hours: Intake & Output 04/22/24 04/23/24 04/24/24 04/25/24 23:59 23:59 23:59 23:59 Intake Total 1415 / 1415 1800 / 1800 960 / 1110 630 / 630 Output Total 0 / 0 0 / 0 300 / 300 0 / 0 Balance 1415 / 1415 1800 / 1800 660 / 810 630 / 630 Weight 67.404 kg 68.606 kg 68.606 kg 71.622 kg Constitutional: Present no acute distress, thin and chronically ill appearing Head: Present atraumatic and normocephalic ENT: Present normal exam Respiratory: Present normal respiratory effort; Absent respiratory distress, stridor, wheezes or crackles Cardiac: Present Reg Rate and Rhythm GI: Present soft and normal bowel sounds; Absent distention or tenderness Extremities: Present normal inspection and full ROM Skin: Present intact; Absent erythema Neuro: Present Grossly Intact, alert, awake and moves all extremities Comment:: Unsteady gait, shuffling gait Assessment and Plan *Assessment and plan (1) Fracture of proximal phalanx of left ring finger: Status: Acute Qualifiers: Encounter type: initial encounter Fracture type: closed Fracture alignment: nondisplaced Qualified Code(s): S62.645A - Nondisplaced fracture of proximal phalanx of left ring finger, initial encounter for closed fracture Category: Medical Code(s): S62.615A - Displaced fracture of proximal phalanx of left ring finger, initial encounter for closed fracture (2) Parkinson's disease (tremor, stiffness, slow motion, unstable posture): Status: Acute Category: Medical Code(s): G20.A1 - Parkinson's disease without dyskinesia, without mention of fluctuations (3) Mood disorder: Status: Acute Category: Medical Code(s): F39 - Unspecified mood [affective] disorder (4) Dementia: Status: Acute Category: Medical Code(s): F03.90 - Unspecified dementia, unspecified severity, without behavioral disturbance, psychotic disturbance, mood disturbance, and anxiety (5) Finger fracture, left: Status: Acute Qualifiers: Encounter type: initial encounter Finger: ring finger Fracture alignment: nondisplaced Fracture type: closed Phalanx: proximal Qualified Code(s): S62.645A - Nondisplaced fracture of proximal phalanx of left ring finger, initial encounter for closed fracture Category: Medical Code(s): S62.609A - Fracture of unspecified phalanx of unspecified finger, initial encounter for closed fracture (6) Falls frequently: Status: Acute Category: Medical Code(s): R29.6 - Repeated falls Plan This is a 63-year-old male that resides at [facility] [address] [facility] with ~5 months of identified increase in falls. Previous hospitalization at [facility] November 2023 identified chronic psychiatric disorder, dementia and ventriculomegaly on CT head. Condition stable, awaiting guardianship and placement. Problems addressed as follows: Parkinson's disease Dementia Frequent falls Chronic antipsychotic therapy Concerns for normal pressure hydrocephalus with previous neuroimaging identifying ventriculomegaly CT cervical, thoracic and lumbar spine with degenerative changes and no acute fractures PT working with patient daily, awaiting SNF placement, case management assisting with guardianship with APS. - Continue donepizil, memantine. - Will need neurology follow-up outpatient. #Right neck laceration, healing - Present on admission, I evaluated it further this evening and it is consistent with healing laceration. Inconsistent with a fall at this time. - Patient is unable to provide details given his dementia and memory impairment. Left fourth digit fracture Splint care; Orthopedic surgery consulted, dante taped 3rd and 4th fingers. This is a non-surgical healing process. Mood disorder History of schizophrenia Routine nursing interaction - Continue respiridone 4mg BID, seroquel 50mg qhs due to nighttime agitation. - Outpatient follow-up with psychiatry Seizure disorder Seizure precautions Divalproex ER therapy White count normal at 4.2, kidney function normal BUN 13, creatinine 0.7. MCV elevated at 106. Will administer B12 IM x 1 today and initiate multivitamin. Continue regular diet.
[2024-04-25 16:00] VITALS: BP 111/56; PULSE 88; RESP 18; TEMP 36.7; O2SAT 96
--- NOTE | 2024-04-25 17:03 | PC.NURSE ---
per darline, okay for pt to go off floor with staff and okay to D/C IV. iv removed from RUE, tolerated well. alarm on while pt is in bed or chair for safety.
[2024-04-25] MEDS: PRENATAL MULTIVITAMIN W/IRON 1 EACH PO (18:42)
[2024-04-25 20:00] VITALS: BP 131/59; PULSE 79; RESP 17; TEMP 36.4; O2SAT 98
[2024-04-25] MEDS: TRAZODONE 50MG TABLET 50 MG PO (20:49)
[2024-04-25] MEDS: QUETIAPINE 100MG TABLET 50 MG PO (20:50)
[2024-04-25] MEDS: ENOXAPARIN 40MG/0.4ML SYRINGE 40 MG SUBCUT (20:50)
[2024-04-25] MEDS: PANTOPRAZOLE 40MG TABLET 40 MG PO (20:50)
[2024-04-25] MEDS: DONEPEZIL 10MG TAB 10 MG PO (20:50)
[2024-04-26 04:00] VITALS: BP 100/55; PULSE 50; RESP 16; TEMP 36.5; O2SAT 96; BMI 22.6
[2024-04-26 08:00] VITALS: BP 97/54; PULSE 58; RESP 16; TEMP 36.6; O2SAT 96
--- NOTE | 2024-04-26 10:07 | EXP.ACUTE.PN ---
Subjective *Date: 04/26/24 *Time: 17:06 Interval history: No complaints today. Stable on room air. Requiring assistance to ambulate. No nausea or vomiting. Slept well overnight Medical Exam Vital signs and Labs for Last 24 Hours: Vital Signs Temp Pulse Resp BP Pulse Ox O2 Del Method 04/26/24 08:00 97.9 F 58 L 16 97/54 L 96 Room Air 04/26/24 06:37 Room Air 04/26/24 04:57 Room Air 04/26/24 04:00 97.7 F 50 L 16 100/55 L 96 Room Air 04/26/24 03:00 Room Air 04/26/24 01:00 Room Air 04/25/24 23:00 Room Air 04/25/24 21:00 Room Air 04/25/24 20:00 Room Air 04/25/24 20:00 97.6 F 79 17 131/59 L 98 Room Air 04/25/24 18:28 Room Air 04/25/24 17:00 Room Air 04/25/24 16:00 98.1 F 88 18 111/56 L 96 Room Air 04/25/24 15:00 Room Air 04/25/24 13:00 Room Air 04/25/24 11:00 Room Air 04/25/24 10:30 90 93/50 L Intake and Output 04/25/24 04/26/24 04/26/24 23:59 07:59 15:59 Intake Total 360 / 1830 480 / 1050 570 / 1050 Output Total 0 / 0 0 / 0 Balance 360 / 1830 480 / 1050 570 / 1050 Intake: Intake, Oral Amount 360 / 1830 480 / 1050 570 / 1050 Output: Output, Urine Amount 0 / 0 0 / 0 Other: Number of Unmeasured Voids 2 1 Number of Bowel Movements 1 Weight 71.804 kg Patient Weight 04/26/24 23:59 Weight 71.804 kg I & O for Labs for Last 24 Hours: Intake & Output 04/23/24 04/24/24 04/25/24 04/26/24 23:59 23:59 23:59 23:59 Intake Total 1800 / 1800 960 / 1110 1350 / 1830 1050 / 1050 Output Total 0 / 0 300 / 300 0 / 0 0 / 0 Balance 1800 / 1800 660 / 810 1350 / 1830 1050 / 1050 Weight 68.606 kg 68.606 kg 71.622 kg 71.804 kg Constitutional: Present no acute distress, thin and chronically ill appearing Head: Present atraumatic and normocephalic ENT: Present normal exam Respiratory: Present normal respiratory effort; Absent respiratory distress, stridor, wheezes or crackles Cardiac: Present Reg Rate and Rhythm GI: Present soft and normal bowel sounds; Absent distention or tenderness Extremities: Present normal inspection and full ROM Skin: Present intact; Absent erythema Neuro: Present Grossly Intact, alert, awake and moves all extremities Comment:: Unsteady gait, shuffling gait Assessment and Plan *Assessment and plan (1) Fracture of proximal phalanx of left ring finger: Status: Acute Qualifiers: Encounter type: initial encounter Fracture type: closed Fracture alignment: nondisplaced Qualified Code(s): S62.645A - Nondisplaced fracture of proximal phalanx of left ring finger, initial encounter for closed fracture Category: Medical Code(s): S62.615A - Displaced fracture of proximal phalanx of left ring finger, initial encounter for closed fracture (2) Parkinson's disease (tremor, stiffness, slow motion, unstable posture): Status: Acute Category: Medical Code(s): G20.A1 - Parkinson's disease without dyskinesia, without mention of fluctuations (3) Mood disorder: Status: Acute Category: Medical Code(s): F39 - Unspecified mood [affective] disorder (4) Dementia: Status: Acute Category: Medical Code(s): F03.90 - Unspecified dementia, unspecified severity, without behavioral disturbance, psychotic disturbance, mood disturbance, and anxiety (5) Finger fracture, left: Status: Acute Qualifiers: Encounter type: initial encounter Finger: ring finger Fracture alignment: nondisplaced Fracture type: closed Phalanx: proximal Qualified Code(s): S62.645A - Nondisplaced fracture of proximal phalanx of left ring finger, initial encounter for closed fracture Category: Medical Code(s): S62.609A - Fracture of unspecified phalanx of unspecified finger, initial encounter for closed fracture (6) Falls frequently: Status: Acute Category: Medical Code(s): R29.6 - Repeated falls Plan This is a 63-year-old male that resides at [facility] with ~5 months of identified increase in falls. Previous hospitalization at [facility] November 2023 identified chronic psychiatric disorder, dementia and ventriculomegaly on CT head. Condition stable, awaiting guardianship and placement. Problems addressed as follows: Parkinson's disease Dementia Frequent falls Chronic antipsychotic therapy Concerns for normal pressure hydrocephalus with previous neuroimaging identifying ventriculomegaly CT cervical, thoracic and lumbar spine with degenerative changes and no acute fractures PT working with patient daily, awaiting SNF placement, case management assisting with guardianship with APS. - Continue donepizil, memantine. - Will need neurology follow-up outpatient. #Right neck laceration, healing - Present on admission, I evaluated it further this evening and it is consistent with healing laceration. Inconsistent with a fall at this time. - Patient is unable to provide details given his dementia and memory impairment. Left fourth digit fracture Splint care; Orthopedic surgery consulted, dante taped 3rd and 4th fingers. This is a non-surgical healing process. Mood disorder History of schizophrenia Routine nursing interaction - Continue respiridone 4mg BID, seroquel 50mg qhs due to nighttime agitation. - Outpatient follow-up with psychiatry Seizure disorder Seizure precautions Divalproex ER therapy Lab holiday today.
[2024-04-26] MEDS: MEMANTINE 10MG TABLET 5 MG PO (10:22)
[2024-04-26] MEDS: risperiDONE 1MG TABLET 4 MG PO ×2 (10:22→20:23)
[2024-04-26] MEDS: BENZTROPINE 1MG TABLET 1 MG PO ×3 (10:22→20:23)
[2024-04-26] MEDS: DOCUSATE SODIUM 100 MG CAPSULE PO (10:22)
[2024-04-26] MEDS: DIVALPROEX 250MG (EXTENDED-RELEASE) TABLET 500 MG PO ×2 (10:23→20:22)
[2024-04-26 16:30] VITALS: BP 106/60; PULSE 62; RESP 18; TEMP 36.8; O2SAT 98
[2024-04-26] MEDS: PRENATAL MULTIVITAMIN W/IRON 1 EACH PO (19:24)
[2024-04-26 20:00] VITALS: BP 110/65; PULSE 75; RESP 16; TEMP 36.5; O2SAT 95
[2024-04-26] MEDS: TRAZODONE 50MG TABLET 50 MG PO (20:23)
[2024-04-26] MEDS: QUETIAPINE 100MG TABLET 50 MG PO (20:23)
[2024-04-26] MEDS: ENOXAPARIN 40MG/0.4ML SYRINGE 40 MG SUBCUT (20:23)
[2024-04-26] MEDS: DONEPEZIL 10MG TAB 10 MG PO (20:24)
[2024-04-26] MEDS: PANTOPRAZOLE 40MG TABLET 40 MG PO (20:24)
[2024-04-27 04:00] VITALS: BMI 22.6
--- NOTE | 2024-04-27 06:55 | PC.NURSE ---
Patients 0400 vitals were not taken due to patient being asleep.
[2024-04-27 08:00] VITALS: BP 88/45; PULSE 45; RESP 12; TEMP 36.7; O2SAT 94
[2024-04-27] MEDS: BENZTROPINE 1MG TABLET 1 MG PO ×3 (09:34→20:06)
[2024-04-27] MEDS: DIVALPROEX 250MG (EXTENDED-RELEASE) TABLET 500 MG PO ×2 (09:35→20:06)
[2024-04-27] MEDS: risperiDONE 1MG TABLET 4 MG PO ×2 (09:35→20:06)
[2024-04-27] MEDS: MEMANTINE 10MG TABLET 5 MG PO (09:35)
[2024-04-27] MEDS: DOCUSATE SODIUM 100 MG CAPSULE PO (09:35)
--- NOTE | 2024-04-27 11:05 | P.PN_ITS ---
Subjective *Date: 04/27/24 *Time: 11:05 Interval history: No complaints today. Stable on room air. Requiring assistance to ambulate. No nausea or vomiting. Slept well overnight. Is getting up independently but very unstable. Pleasantly confused. Medical Exam Vital signs and Labs for Last 24 Hours: Vital Signs Temp Pulse Resp BP Pulse Ox O2 Del Method 04/27/24 09:00 Room Air 04/27/24 08:00 Room Air 04/27/24 08:00 98.0 F 45 L 12 88/45 L 94 L Room Air 04/27/24 06:45 Room Air 04/27/24 05:00 Room Air 04/27/24 03:00 Room Air 04/27/24 01:00 Room Air 04/26/24 23:00 Room Air 04/26/24 21:00 Room Air 04/26/24 20:00 Room Air 04/26/24 20:00 97.7 F 75 16 110/65 95 Room Air 04/26/24 18:59 Room Air 04/26/24 17:00 Room Air 04/26/24 16:30 98.3 F 62 18 106/60 L 98 Room Air 04/26/24 15:00 Room Air 04/26/24 13:00 Room Air Intake and Output 04/26/24 04/27/24 04/27/24 23:59 07:59 15:59 Intake Total 1020 / 2550 390 / 390 Output Total 0 / 0 0 / 0 0 / 0 Balance 1020 / 2550 0 / 390 390 / 390 Intake: Intake, Oral Amount 1020 / 2550 390 / 390 Output: Output, Urine Amount 0 / 0 0 / 0 0 / 0 Other: Number of Unmeasured Voids 2 1 1 Weight 71.668 kg Patient Weight 04/27/24 23:59 Weight 71.668 kg I & O for Labs for Last 24 Hours: Intake & Output 04/24/24 04/25/24 04/26/24 04/27/24 23:59 23:59 23:59 23:59 Intake Total 960 / 1110 1350 / 1830 2550 / 2550 390 / 390 Output Total 300 / 300 0 / 0 0 / 0 0 / 0 Balance 660 / 810 1350 / 1830 2550 / 2550 390 / 390 Weight 68.606 kg 71.622 kg 71.804 kg 71.668 kg Constitutional: Present no acute distress, thin and chronically ill appearing Head: Present atraumatic and normocephalic ENT: Present normal exam Respiratory: Present normal respiratory effort; Absent respiratory distress, stridor, wheezes or crackles Cardiac: Present Reg Rate and Rhythm GI: Present soft and normal bowel sounds; Absent distention or tenderness Extremities: Present normal inspection and full ROM Skin: Present intact; Absent erythema Neuro: Present Grossly Intact, alert, awake and moves all extremities Comment:: Unsteady gait, shuffling gait Assessment and Plan *Assessment and plan (1) Fracture of proximal phalanx of left ring finger: Status: Acute Qualifiers: Encounter type: initial encounter Fracture type: closed Fracture alignment: nondisplaced Qualified Code(s): S62.645A - Nondisplaced fracture of proximal phalanx of left ring finger, initial encounter for closed fracture Category: Medical Code(s): S62.615A - Displaced fracture of proximal phalanx of left ring finger, initial encounter for closed fracture (2) Parkinson's disease (tremor, stiffness, slow motion, unstable posture): Status: Acute Category: Medical Code(s): G20.A1 - Parkinson's disease without dyskinesia, without mention of fluctuations (3) Mood disorder: Status: Acute Category: Medical Code(s): F39 - Unspecified mood [affective] disorder (4) Dementia: Status: Acute Category: Medical Code(s): F03.90 - Unspecified dementia, unspecified severity, without behavioral disturbance, psychotic disturbance, mood disturbance, and anxiety (5) Finger fracture, left: Status: Acute Qualifiers: Encounter type: initial encounter Finger: ring finger Fracture alignment: nondisplaced Fracture type: closed Phalanx: proximal Qualified Co de(s): S62.645A - Nondisplaced fracture of proximal phalanx of left ring finger, initial encounter for closed fracture Category: Medical Code(s): S62.609A - Fracture of unspecified phalanx of unspecified finger, initial encounter for closed fracture (6) Falls frequently: Status: Acute Category: Medical Code(s): R29.6 - Repeated falls Plan This is a 63-year-old male that resides at [facility] with ~5 months of identified increase in falls. Previous hospitalization at [facility] November 2023 identified chronic psychiatric disorder, dementia and ventriculomegaly on CT head. Condition stable, awaiting guardianship and placement. Problems addressed as follows: Parkinson's disease Dementia Frequent falls Chronic antipsychotic therapy Concerns for normal pressure hydrocephalus with previous neuroimaging identifying ventriculomegaly CT cervical, thoracic and lumbar spine with degenerative changes and no acute fractures PT working with patient daily, awaiting SNF placement, case management assisting with guardianship with APS. - Continue donepizil, memantine. - Will need neurology follow-up outpatient. #Right neck laceration, healing - Present on admission, I evaluated it further this evening and it is consistent with healing laceration. Inconsistent with a fall at this time. - Patient is unable to provide details given his dementia and memory impairment. Left fourth digit fracture Splint care; Orthopedic surgery consulted, dante taped 3rd and 4th fingers. This is a non-surgical healing process. Mood disorder History of schizophrenia Routine nursing interaction - Continue respiridone 4mg BID, seroquel 50mg qhs due to nighttime agitation. - Outpatient follow-up with psychiatry Seizure disorder Seizure precautions Divalproex ER therapy Lab holiday today. CBC/CMP ordered for the morning
[2024-04-27 16:00] VITALS: BP 96/45; PULSE 60; RESP 14; TEMP 36.6; O2SAT 96
[2024-04-27] MEDS: PRENATAL MULTIVITAMIN W/IRON 1 EACH PO (17:37)
--- NOTE | 2024-04-27 17:57 | PC.NURSE ---
patient is alert to person. remains on room air. he has not tried to get up as much this shift. he ambulates independently, with staff in the room. has tolerated diet well. pt has taken pills whole. seizure pads and bed alarm remain in place. call light within reach, no further requests at this time.
[2024-04-27 20:00] VITALS: BP 119/62; PULSE 61; RESP 18; TEMP 36.6; O2SAT 99
[2024-04-27] MEDS: PANTOPRAZOLE 40MG TABLET 40 MG PO (20:06)
[2024-04-27] MEDS: DONEPEZIL 10MG TAB 10 MG PO (20:06)
[2024-04-27] MEDS: QUETIAPINE 100MG TABLET 50 MG PO (20:07)
[2024-04-27] MEDS: TRAZODONE 50MG TABLET 50 MG PO (20:07)
[2024-04-27] MEDS: ENOXAPARIN 40MG/0.4ML SYRINGE 40 MG SUBCUT (20:07)
[2024-04-28 04:00] VITALS: BP 103/47; PULSE 59; RESP 16; O2SAT 94; BMI 22.8
--- NOTE | 2024-04-28 05:03 | PC.NURSE ---
Patient has remained pleasantly confused this shift, needing frequent redirection. Tolerating room air well. Ambulating x1 assist. Has spent lots of time in the halls with staff members tonight due to not being able to sleep much. Patient has taken pills whole this shift and done well. Seizure pads in place. Bed/chair alarm on for patient safety. Call light within reach.
[2024-04-28 07:11] LABS: Albumin Level 2.7 g/dl (3.5-5.0); Chloride 108 mmol/L (98-107); Sodium 136 mmol/L (136-145)
[2024-04-28 07:14] LABS: Alanine Aminotransferase 53 U/L (12-78); Albumin/Globulin Ratio 0.9 (1.1-1.8); Alkaline Phosphatase 97 U/L (38-126); Aspartate Amino Transferase 55 U/L (17-59); Bilirubin,Total 0.2 mg/dl (0.2-1.3); Blood Urea Nitrogen 15 mg/dl (9-20); Carbon Dioxide 30 mmol/L (22.0-30.0); Creatinine Clearance Estimated 79 mL/min (50-200); Estimated Glomerular Filt Rate 98 ml/min (>60); GFR (African American) 119 ML/MIN (>60); Globulin 2.9 g/dL (1.3-3.2); Total Protein,Serum 5.6 g/dl (6.3-8.2)
[2024-04-28 07:15] LABS: Calcium 8.3 mg/dl (8.4-10.2); Glucose 91 mg/dl (74-100)
[2024-04-28 07:39] VITALS: BP 95/53; PULSE 61; RESP 16; TEMP 36.6; O2SAT 95
[2024-04-28 08:04] LABS: White Blood Count 4.8 K/mm3 (4.8-10.8)
[2024-04-28 08:05] LABS: Basophils % 0.4 % (0.1-2.0); Eosinophils % 1.9 % (0.1-12.0); Hemoglobin 11.5 g/dL (14.1-18.0); Lymphocytes # 2.1 K/mm3 (0.7-4.5); Lymphocytes % 44.3 % (10-50); Mean Corpuscular HGB Conc 33.8 g/dL (31.8-35.4); Mean Corpuscular Hemoglobin 36.4 pg (27.0-31.2); Mean Corpuscular Volume 107.6 fl (80-94); Mean Platelet Volume 11.2 fl (7.4-10.4); Monocytes # 0.7 K/mm3 (0.1-1.0); Monocytes % 15.1 % (1.7-9.3); Neutrophils # 1.8 K/mm3 (1.8-7.8); Neutrophils % 38.1 % (37.0-80.0); Platelet Count 173 K/mm3 (142-424); Red Blood Count 3.16 M/mm3 (4.60-6.20); Red Cell Distribution Width 13.2 % (11.5-17.5)
[2024-04-28 08:06] LABS: Eosinophils # 0.1 K/mm3 (0.0-0.4)
[2024-04-28] MEDS: DOCUSATE SODIUM 100 MG CAPSULE PO (08:09)
[2024-04-28] MEDS: MEMANTINE 10MG TABLET 5 MG PO (08:09)
[2024-04-28] MEDS: risperiDONE 1MG TABLET 4 MG PO ×2 (08:09→20:18)
[2024-04-28] MEDS: BENZTROPINE 1MG TABLET 1 MG PO ×3 (08:09→20:17)
[2024-04-28] MEDS: DIVALPROEX 250MG (EXTENDED-RELEASE) TABLET 500 MG PO ×2 (08:09→20:17)
[2024-04-28 16:00] VITALS: BP 113/53; PULSE 62; RESP 16; TEMP 36.8; O2SAT 98
[2024-04-28] MEDS: PRENATAL MULTIVITAMIN W/IRON 1 EACH PO (17:19)
--- NOTE | 2024-04-28 18:22 | PC.NURSE ---
patient is alert to self and remains on room air. waiting guardianship. has been tolerating meals well. bed alarm on and seizure pads in place. call light within reach, no further requests at this time.
[2024-04-28 20:00] VITALS: BP 141/71; PULSE 77; RESP 18; TEMP 36.6; O2SAT 95
[2024-04-28] MEDS: DONEPEZIL 10MG TAB 10 MG PO (20:17)
[2024-04-28] MEDS: TRAZODONE 50MG TABLET 50 MG PO (20:18)
[2024-04-28] MEDS: ENOXAPARIN 40MG/0.4ML SYRINGE 40 MG SUBCUT (20:18)
[2024-04-28] MEDS: PANTOPRAZOLE 40MG TABLET 40 MG PO (20:18)
[2024-04-28] MEDS: QUETIAPINE 100MG TABLET 50 MG PO (20:18)
[2024-04-29 04:00] VITALS: BP 91/45; PULSE 60; RESP 16; O2SAT 94; BMI 23.4
--- NOTE | 2024-04-29 04:51 | PC.NURSE ---
Pt is alert to self only and has tolerated room air. No acute changes noted. Has ambulated with standby assist. Awaiting guardianship. Currently asleep with bed alarm on.
[2024-04-29 07:41] LABS: Albumin Level 2.7 g/dl (3.5-5.0); Chloride 108 mmol/L (98-107); Potassium 3.8 mmoL/L (3.5-5.1); Sodium 135 mmol/L (136-145)
[2024-04-29 07:44] LABS: Alanine Aminotransferase 75 U/L (12-78); Anion Gap 1.8 mEq/L (5-15); Aspartate Amino Transferase 77 U/L (17-59); Blood Urea Nitrogen 13 mg/dl (9-20); Carbon Dioxide 29 mmol/L (22.0-30.0); Creatinine Clearance Estimated 81 mL/min (50-200); Estimated Glomerular Filt Rate 114 ml/min (>60); GFR (African American) 138 ML/MIN (>60)
[2024-04-29 07:45] LABS: Albumin/Globulin Ratio 0.9 (1.1-1.8); Alkaline Phosphatase 102 U/L (38-126); Bilirubin,Total 0.2 mg/dl (0.2-1.3); Calcium 8.2 mg/dl (8.4-10.2); Globulin 2.9 g/dL (1.3-3.2); Glucose 88 mg/dl (74-100); Total Protein,Serum 5.6 g/dl (6.3-8.2)
[2024-04-29 08:00] VITALS: BP 110/54; PULSE 78; RESP 16; TEMP 37.3; O2SAT 96
[2024-04-29] MEDS: ACETAMINOPHEN 500MG TAB 1000 MG PO (08:24)
[2024-04-29] MEDS: DIVALPROEX 250MG (EXTENDED-RELEASE) TABLET 500 MG PO ×2 (08:24→20:05)
[2024-04-29] MEDS: DOCUSATE SODIUM 100 MG CAPSULE PO (08:24)
[2024-04-29] MEDS: risperiDONE 1MG TABLET 4 MG PO ×2 (08:24→20:07)
[2024-04-29] MEDS: MEMANTINE 10MG TABLET 5 MG PO (08:24)
[2024-04-29] MEDS: BENZTROPINE 1MG TABLET 1 MG PO ×3 (08:25→20:05)
[2024-04-29 12:00] VITALS: BP 105/57; PULSE 54; RESP 18; TEMP 37.1; O2SAT 97
[2024-04-29 16:00] VITALS: BP 90/56; PULSE 58; RESP 16; TEMP 37; O2SAT 96
[2024-04-29] MEDS: PRENATAL MULTIVITAMIN W/IRON 1 EACH PO (17:03)
--- NOTE | 2024-04-29 17:12 | EXP.PN ---
Subjective *Date: 05/01/24 *Time: 22:17 Interval history: Progress note for 04/28/24 Continues to do well, pleasant and conversational. No complaints. Exam Data for Last 24 hours Vital signs and Labs for Last 24 Hours: Temp Pulse Resp BP Pulse Ox O2 Del Method 98.7 F 54 L 18 105/57 L 97 Room Air 04/29/24 12:00 04/29/24 12:00 04/29/24 12:00 04/29/24 12:00 04/29/24 12:00 04/29/24 15:28 Laboratory Results - last 24 hr 04/29/24 07:10: Sodium 135 L, Potassium 3.8, Chloride 108 H, Carbon Dioxide 29, Anion Gap 1.8 L, BUN 13, Creatinine 0.70, Estimated Creat Clear 81, Estimated GFR 114, Est GFR ( Amer) 138, Glucose 88, Calcium 8.2 L, Total Bilirubin 0.2, AST 77 H D, ALT 75 D, Alkaline Phosphatase 102, Total Protein 5.6 L, Albumin 2.7 L, Globulin 2.9, Albumin/Globulin Ratio 0.9 L I & O for Last 24 hours: Intake & Output 04/26/24 04/27/24 04/28/24 04/29/24 23:59 23:59 23:59 23:59 Intake Total 2550 / 2550 1060 / 1060 945 / 1245 800 / 800 Output Total 0 / 0 0 / 0 0 / 400 400 / 400 Balance 2550 / 2550 1060 / 1060 945 / 845 400 / 400 Weight 71.804 kg 71.668 kg 72.62 kg 74.344 kg Constitutional Constitutional: no acute distress *Routine HEENT Exam Head: Present normocephalic Eye: Present EOMI and PERRL ENT: Present mucous membranes moist *Routine Neck Exam Neck: Present supple; Absent lymphadenopathy Comments: Right neck healing laceration. *Routine Respiratory Exam Respiratory: Present CTA bilaterally *Routine Cardiovascular Exam Cardiovascular: Present RRR *Routine Abdominal Exam Abdominal: Present soft and normoactive bowel sounds; Absent tenderness *Routine Extremities Exam Extremities: Absent cyanosis, clubbing or edema *Routine Skin Exam Skin: Present warm; Absent rash *Routine Neurological Exam Neurological: Present alert Comments: Pleasant and can hold somewhat of a conversation, but often confused and unintelligible. Assessment and Plan *Assessment and plan (1) Fracture of proximal phalanx of left ring finger: Status: Acute Qualifiers: Encounter type: initial encounter Fracture alignment: nondisplaced Fracture type: closed Qualified Code(s): S62.645A - Nondisplaced fracture of proximal phalanx of left ring finger, initial encounter for closed fracture Category: Medical Code(s): S62.615A - Displaced fracture of proximal phalanx of left ring finger, initial encounter for closed fracture (2) Parkinson's disease (tremor, stiffness, slow motion, unstable posture): Status: Acute Category: Medical Code(s): G20.A1 - Parkinson's disease without dyskinesia, without mention of fluctuations (3) Mood disorder: Status: Acute Category: Medical Code(s): F39 - Unspecified mood [affective] disorder (4) Dementia: Status: Acute Category: Medical Code(s): F03.90 - Unspecified dementia, unspecified severity, without behavioral disturbance, psychotic disturbance, mood disturbance, and anxiety (5) Finger fracture, left: Status: Acute Qualifiers: Encounter type: initial encounter Finger: ring finger Fracture alignment: nondisplaced Fracture type: closed Phalanx: proximal Qualified Code(s): S62.645A - Nondisplaced fracture of proximal phalanx of left ring finger, initial encounter for closed fracture Category: Medical Code(s): S62.609A - Fracture of unspecified phalanx of unspecified finger, initial encounter for closed fracture (6) Falls frequently: Status: Acute Category: Medical Code(s): R29.6 - Repeated falls Plan This is a 63-year-old male that resides at [facility] with ~5 months of identified increase in falls. Previous hospitalization at [facility] November 2023 identified chronic psychiatric disorder, dementia and ventriculomegaly on CT head. Condition stable, awaiting guardianship and placement. Problems addressed as follows: Parkinson's disease Dementia Frequent falls Chronic antipsychotic therapy Concerns for normal pressure hydrocephalus with previous neuroimaging identifying ventriculomegaly CT cervical, thoracic and lumbar spine with degenerative changes and no acute fractures PT working with patient daily, awaiting SNF placement, case management assisting with guardianship with APS. - Continue donepizil, memantine. - Will need neurology follow-up outpatient. #Right neck laceration, healing - Present on admission, I evaluated it further this evening and it is consistent with healing laceration. Inconsistent with a fall at this time. - Patient is unable to provide details given his dementia and memory impairment. Left fourth digit fracture Splint care; Orthopedic surgery consulted, dante taped 3rd and 4th fingers. This is a non-surgical healing process. Mood disorder History of schizophrenia Routine nursing interaction - Continue respiridone 4mg BID, seroquel 50mg qhs due to nighttime agitation. - Outpatient follow-up with psychiatry Seizure disorder Seizure precautions Divalproex ER therapy Lab holiday today.
--- NOTE | 2024-04-29 17:12 | EXP.PN ---
Subjective *Date: 05/01/24 *Time: 22:17 Interval history: DOing well, walking the halls with nursing staff. No complaints. Exam Data for Last 24 hours Vital signs and Labs for Last 24 Hours: Temp Pulse Resp BP Pulse Ox O2 Del Method 98.7 F 54 L 18 105/57 L 97 Room Air 04/29/24 12:00 04/29/24 12:00 04/29/24 12:00 04/29/24 12:00 04/29/24 12:00 04/29/24 15:28 Laboratory Results - last 24 hr 04/29/24 07:10: Sodium 135 L, Potassium 3.8, Chloride 108 H, Carbon Dioxide 29, Anion Gap 1.8 L, BUN 13, Creatinine 0.70, Estimated Creat Clear 81, Estimated GFR 114, Est GFR ( Amer) 138, Glucose 88, Calcium 8.2 L, Total Bilirubin 0.2, AST 77 H D, ALT 75 D, Alkaline Phosphatase 102, Total Protein 5.6 L, Albumin 2.7 L, Globulin 2.9, Albumin/Globulin Ratio 0.9 L I & O for Last 24 hours: Intake & Output 04/26/24 04/27/24 04/28/24 04/29/24 23:59 23:59 23:59 23:59 Intake Total 2550 / 2550 1060 / 1060 945 / 1245 800 / 800 Output Total 0 / 0 0 / 0 0 / 400 400 / 400 Balance 2550 / 2550 1060 / 1060 945 / 845 400 / 400 Weight 71.804 kg 71.668 kg 72.62 kg 74.344 kg Constitutional Constitutional: no acute distress *Routine HEENT Exam Head: Present normocephalic Eye: Present EOMI and PERRL ENT: Present mucous membranes moist *Routine Neck Exam Neck: Present supple; Absent lymphadenopathy Comments: Right neck healing laceration. *Routine Respiratory Exam Respiratory: Present CTA bilaterally *Routine Cardiovascular Exam Cardiovascular: Present RRR *Routine Abdominal Exam Abdominal: Present soft and normoactive bowel sounds; Absent tenderness *Routine Extremities Exam Extremities: Absent cyanosis, clubbing or edema *Routine Skin Exam Skin: Present warm; Absent rash *Routine Neurological Exam Neurological: Present alert Comments: Pleasant and can hold somewhat of a conversation, but often confused and unintelligible. Assessment and Plan *Assessment and plan (1) Fracture of proximal phalanx of left ring finger: Status: Acute Qualifiers: Encounter type: initial encounter Fracture type: closed Fracture alignment: nondisplaced Qualified Code(s): S62.645A - Nondisplaced fracture of proximal phalanx of left ring finger, initial encounter for closed fracture Category: Medical Code(s): S62.615A - Displaced fracture of proximal phalanx of left ring finger, initial encounter for closed fracture (2) Parkinson's disease (tremor, stiffness, slow motion, unstable posture): Status: Acute Category: Medical Code(s): G20.A1 - Parkinson's disease without dyskinesia, without mention of fluctuations (3) Mood disorder: Status: Acute Category: Medical Code(s): F39 - Unspecified mood [affective] disorder (4) Dementia: Status: Acute Category: Medical Code(s): F03.90 - Unspecified dementia, unspecified severity, without behavioral disturbance, psychotic disturbance, mood disturbance, and anxiety (5) Finger fracture, left: Status: Acute Qualifiers: Encounter type: initial encounter Finger: ring finger Fracture alignment: nondisplaced Fracture type: closed Phalanx: proximal Qualified Code(s): S62.645A - Nondisplaced fracture of proximal phalanx of left ring finger, initial encounter for closed fracture Category: Medical Code(s): S62.609A - Fracture of unspecified phalanx of unspecified finger, initial encounter for closed fracture (6) Falls frequently: Status: Acute Category: Medical Code(s): R29.6 - Repeated falls Plan This is a 63-year-old male that resides at [facility] with ~5 months of identified increase in falls. Previous hospitalization at [facility] November 2023 identified chronic psychiatric disorder, dementia and ventriculomegaly on CT head. Condition stable, awaiting guardianship and placement. Problems addressed as follows: #Parkinson's disease #Dementia #Frequent falls Chronic antipsychotic therapy Concerns for normal pressure hydrocephalus with previous neuroimaging identifying ventriculomegaly CT cervical, thoracic and lumbar spine with degenerative changes and no acute fractures PT working with patient daily, awaiting SNF placement, case management assisting with guardianship with APS. - Continue donepizil, memantine. - Will need neurology follow-up outpatient. #Right neck laceration, healing - Present on admission, I evaluated it further this evening and it is consistent with healing laceration. Inconsistent with a fall at this time. - Patient is unable to provide details given his dementia and memory impairment. Left fourth digit fracture Splint care; Orthopedic surgery consulted, dante taped 3rd and 4th fingers. This is a non-surgical healing process. Mood disorder History of schizophrenia Routine nursing interaction - Continue respiridone 4mg BID, seroquel 50mg qhs due to nighttime agitation. - Outpatient follow-up with psychiatry Seizure disorder Seizure precautions Divalproex ER therapy
--- NOTE | 2024-04-29 17:17 | PC.NURSE ---
Pt is alert to self only and has tolerated room air, ambulated with standby assist, Awaiting guardianship, bed alarm active.
[2024-04-29 20:00] VITALS: BP 102/54; PULSE 64; RESP 16; TEMP 36.2; O2SAT 96
[2024-04-29] MEDS: ENOXAPARIN 40MG/0.4ML SYRINGE 40 MG SUBCUT (20:06)
[2024-04-29] MEDS: PANTOPRAZOLE 40MG TABLET 40 MG PO (20:06)
[2024-04-29] MEDS: DONEPEZIL 10MG TAB 10 MG PO (20:06)
[2024-04-29] MEDS: QUETIAPINE 100MG TABLET 50 MG PO (20:06)
[2024-04-29] MEDS: TRAZODONE 50MG TABLET 50 MG PO (20:07)
[2024-04-30 04:00] VITALS: BP 96/52; PULSE 52; RESP 16; TEMP 36.7; O2SAT 95; BMI 23.5
[2024-04-30 07:40] VITALS: BP 111/65; PULSE 54; RESP 17; TEMP 37; O2SAT 95
[2024-04-30 08:09] LABS: Albumin Level 2.7 g/dl (3.5-5.0); Chloride 107 mmol/L (98-107); Sodium 135 mmol/L (136-145)
[2024-04-30 08:12] LABS: Alanine Aminotransferase 90 U/L (12-78); Albumin/Globulin Ratio 0.9 (1.1-1.8); Alkaline Phosphatase 89 U/L (38-126); Aspartate Amino Transferase 88 U/L (17-59); Bilirubin,Total 0.2 mg/dl (0.2-1.3); Blood Urea Nitrogen 12 mg/dl (9-20); Calcium 8.2 mg/dl (8.4-10.2); Carbon Dioxide 30 mmol/L (22.0-30.0); Creatinine Clearance Estimated 81 mL/min (50-200); Estimated Glomerular Filt Rate 114 ml/min (>60); GFR (African American) 138 ML/MIN (>60); Globulin 2.9 g/dL (1.3-3.2); Glucose 88 mg/dl (74-100); Total Protein,Serum 5.6 g/dl (6.3-8.2)
[2024-04-30] MEDS: BENZTROPINE 1MG TABLET 1 MG PO ×3 (08:41→20:00)
[2024-04-30] MEDS: MEMANTINE 10MG TABLET 5 MG PO (08:41)
[2024-04-30] MEDS: DIVALPROEX 250MG (EXTENDED-RELEASE) TABLET 500 MG PO ×2 (08:41→20:00)
[2024-04-30] MEDS: DOCUSATE SODIUM 100 MG CAPSULE PO (08:41)
[2024-04-30] MEDS: risperiDONE 1MG TABLET 4 MG PO ×2 (08:42→20:00)
[2024-04-30 16:00] VITALS: BP 103/53; PULSE 64; RESP 18; TEMP 36.8; O2SAT 98
[2024-04-30] MEDS: PRENATAL MULTIVITAMIN W/IRON 1 EACH PO (17:54)
--- NOTE | 2024-04-30 18:05 | PC.NURSE ---
Addendum entered by Josette Aguero RN 04/30/24 18:39: pt has took the chair alarm off of himself twice this shift. Original Note: pt has been anxious and impulsive, staff has been with pt majority of the day. Kar has walked with staff once in the hallway and around room numerous times. pt has went from bed, to chair at bs, to wheelchair repeatedly, still pleasantly confused. bed or chair alarm on at all times while up for pt safety.
[2024-04-30] MEDS: DONEPEZIL 10MG TAB 10 MG PO (19:59)
[2024-04-30] MEDS: ENOXAPARIN 40MG/0.4ML SYRINGE 40 MG SUBCUT (19:59)
[2024-04-30] MEDS: PANTOPRAZOLE 40MG TABLET 40 MG PO (19:59)
[2024-04-30] MEDS: TRAZODONE 50MG TABLET 50 MG PO (19:59)
[2024-04-30 20:00] VITALS: BP 116/69; PULSE 74; RESP 16; TEMP 36.9; O2SAT 95
[2024-04-30] MEDS: QUETIAPINE 100MG TABLET 50 MG PO (20:00)
--- NOTE | 2024-04-30 21:53 | EXP.PN ---
Subjective *Date: 05/01/24 *Time: 22:18 Interval history: No complaints, watching [place] movies. Exam Data for Last 24 hours Vital signs and Labs for Last 24 Hours: Temp Pulse Resp BP Pulse Ox O2 Del Method 98.5 F 74 16 116/69 95 Room Air 04/30/24 20:00 04/30/24 20:00 04/30/24 20:00 04/30/24 20:00 04/30/24 20:00 04/30/24 21:00 Laboratory Results - last 24 hr 04/30/24 07:23: Sodium 135 L, Potassium 4.0, Chloride 107, Carbon Dioxide 30, Anion Gap 2.0 L, BUN 12, Creatinine 0.70, Estimated Creat Clear 81, Estimated GFR 114, Est GFR ( Amer) 138, Glucose 88, Calcium 8.2 L, Total Bilirubin 0.2, AST 88 H, ALT 90 H, Alkaline Phosphatase 89, Total Protein 5.6 L, Albumin 2.7 L, Globulin 2.9, Albumin/Globulin Ratio 0.9 L I & O for Last 24 hours: Intake & Output 04/27/24 04/28/24 04/29/24 04/30/24 23:59 23:59 23:59 23:59 Intake Total 1060 / 1060 945 / 1245 1880 / 2130 1460 / 1460 Output Total 0 / 0 0 / 400 700 / 700 0 / 0 Balance 1060 / 1060 945 / 845 1180 / 1430 1460 / 1460 Weight 71.668 kg 72.62 kg 74.344 kg 74.48 kg Constitutional Constitutional: no acute distress *Routine HEENT Exam Head: Present normocephalic Eye: Present EOMI and PERRL ENT: Present mucous membranes moist *Routine Neck Exam Neck: Present supple; Absent lymphadenopathy Comments: Right neck healing laceration. *Routine Respiratory Exam Respiratory: Present CTA bilaterally *Routine Cardiovascular Exam Cardiovascular: Present RRR *Routine Abdominal Exam Abdominal: Present soft and normoactive bowel sounds; Absent tenderness *Routine Extremities Exam Extremities: Absent cyanosis, clubbing or edema *Routine Skin Exam Skin: Present warm; Absent rash *Routine Neurological Exam Neurological: Present alert Comments: Pleasant and can hold somewhat of a conversation, but often confused and unintelligible. Assessment and Plan *Assessment and plan (1) Fracture of proximal phalanx of left ring finger: Status: Acute Qualifiers: Encounter type: initial encounter Fracture alignment: nondisplaced Fracture type: closed Qualified Code(s): S62.645A - Nondisplaced fracture of proximal phalanx of left ring finger, initial encounter for closed fracture Category: Medical Code(s): S62.615A - Displaced fracture of proximal phalanx of left ring finger, initial encounter for closed fracture (2) Parkinson's disease (tremor, stiffness, slow motion, unstable posture): Status: Acute Category: Medical Code(s): G20.A1 - Parkinson's disease without dyskinesia, without mention of fluctuations (3) Mood disorder: Status: Acute Category: Medical Code(s): F39 - Unspecified mood [affective] disorder (4) Dementia: Status: Acute Category: Medical Code(s): F03.90 - Unspecified dementia, unspecified severity, without behavioral disturbance, psychotic disturbance, mood disturbance, and anxiety (5) Finger fracture, left: Status: Acute Qualifiers: Encounter type: initial encounter Finger: ring finger Fracture alignment: nondisplaced Fracture type: closed Phalanx: proximal Qualified Code(s): S62.645A - Nondisplaced fracture of proximal phalanx of left ring finger, initial encounter for closed fracture Category: Medical Code(s): S62.609A - Fracture of unspecified phalanx of unspecified finger, initial encounter for closed fracture (6) Falls frequently: Status: Acute Category: Medical Code(s): R29.6 - Repeated falls Plan This is a 63-year-old male that resides at [facility] with ~5 months of identified increase in falls. Previous hospitalization at [facility] November 2023 identified chronic psychiatric disorder, dementia and ventriculomegaly on CT head. Condition stable, awaiting guardianship and placement. Problems addressed as follows: Parkinson's disease Dementia Frequent falls Chronic antipsychotic therapy Concerns for normal pressure hydrocephalus with previous neuroimaging identifying ventriculomegaly CT cervical, thoracic and lumbar spine with degenerative changes and no acute fractures PT working with patient daily, awaiting SNF placement, case management assisting with guardianship with APS. - Continue donepizil, memantine. - Will need neurology follow-up outpatient. #Right neck laceration, healing - Present on admission, I evaluated it further this evening and it is consistent with healing laceration. Inconsistent with a fall at this time. - Patient is unable to provide details given his dementia and memory impairment. Left fourth digit fracture Splint care; Orthopedic surgery consulted, dante taped 3rd and 4th fingers. This is a non-surgical healing process. Mood disorder History of schizophrenia Routine nursing interaction - Continue respiridone 4mg BID, seroquel 50mg qhs due to nighttime agitation. - Outpatient follow-up with psychiatry Seizure disorder Seizure precautions Divalproex ER therapy
[2024-05-01 04:00] VITALS: BP 103/49; PULSE 56; RESP 16; TEMP 36.7; O2SAT 96; BMI 23.4
--- NOTE | 2024-05-01 05:27 | PC.NURSE ---
No acute changes overnight. Patient has rested well.
[2024-05-01 07:56] VITALS: BP 98/45; PULSE 48; RESP 14; TEMP 36.6; O2SAT 94
[2024-05-01] MEDS: BENZTROPINE 1MG TABLET 1 MG PO ×3 (08:35→21:13)
[2024-05-01] MEDS: risperiDONE 1MG TABLET 4 MG PO ×2 (08:35→21:13)
[2024-05-01] MEDS: MEMANTINE 10MG TABLET 5 MG PO (08:35)
[2024-05-01] MEDS: DIVALPROEX 250MG (EXTENDED-RELEASE) TABLET 500 MG PO ×2 (08:35→21:12)
[2024-05-01] MEDS: DOCUSATE SODIUM 100 MG CAPSULE PO (08:36)
[2024-05-01 15:55] VITALS: BP 99/55; PULSE 78; RESP 19; TEMP 36.8; O2SAT 95
[2024-05-01] MEDS: PRENATAL MULTIVITAMIN W/IRON 1 EACH PO (18:49)
[2024-05-01 20:00] VITALS: BP 109/58; PULSE 66; RESP 16; TEMP 36.5; O2SAT 95
[2024-05-01] MEDS: ENOXAPARIN 40MG/0.4ML SYRINGE 40 MG SUBCUT (21:12)
[2024-05-01] MEDS: QUETIAPINE 100MG TABLET 50 MG PO (21:13)
[2024-05-01] MEDS: TRAZODONE 50MG TABLET 50 MG PO (21:13)
[2024-05-01] MEDS: DONEPEZIL 10MG TAB 10 MG PO (21:13)
[2024-05-01] MEDS: PANTOPRAZOLE 40MG TABLET 40 MG PO (21:13)
--- NOTE | 2024-05-01 22:19 | P.PN_ITS ---
Subjective *Date: 05/01/24 *Time: 22:19 Interval history: More conversational with nursing. Walking halls with assistance and enjoying [place] music. Exam Data for Last 24 hours Vital signs and Labs for Last 24 Hours: Temp Pulse Resp BP Pulse Ox O2 Del Method 97.7 F 66 16 109/58 L 95 Room Air 05/01/24 20:00 05/01/24 20:00 05/01/24 20:00 05/01/24 20:00 05/01/24 20:00 05/01/24 20:00 I & O for Last 24 hours: Intake & Output 04/28/24 04/29/24 04/30/24 05/01/24 23:59 23:59 23:59 23:59 Intake Total 945 / 1245 1880 / 2130 1460 / 1460 600 / 600 Output Total 0 / 400 700 / 700 0 / 0 0 / 0 Balance 945 / 845 1180 / 1430 1460 / 1460 600 / 600 Weight 72.62 kg 74.344 kg 74.48 kg 74.389 kg Constitutional Constitutional: no acute distress *Routine HEENT Exam Head: Present normocephalic Eye: Present EOMI and PERRL ENT: Present mucous membranes moist *Routine Neck Exam Neck: Present supple; Absent lymphadenopathy Comments: Right neck healing laceration. *Routine Respiratory Exam Respiratory: Present CTA bilaterally *Routine Cardiovascular Exam Cardiovascular: Present RRR *Routine Abdominal Exam Abdominal: Present soft and normoactive bowel sounds; Absent tenderness *Routine Extremities Exam Extremities: Absent cyanosis, clubbing or edema *Routine Skin Exam Skin: Present warm; Absent rash *Routine Neurological Exam Neurological: Present alert Comments: Pleasant and can hold somewhat of a conversation, but often confused and unintelligible. Assessment and Plan *Assessment and plan (1) Fracture of proximal phalanx of left ring finger: Status: Acute Qualifiers: Encounter type: initial encounter Fracture type: closed Fracture alignment: nondisplaced Qualified Code(s): S62.645A - Nondisplaced fracture of proximal phalanx of left ring finger, initial encounter for closed fracture Category: Medical Code(s): S62.615A - Displaced fracture of proximal phalanx of left ring finger, initial encounter for closed fracture (2) Parkinson's disease (tremor, stiffness, slow motion, unstable posture): Status: Acute Category: Medical Code(s): G20.A1 - Parkinson's disease without dyskinesia, without mention of fluctuations (3) Mood disorder: Status: Acute Category: Medical Code(s): F39 - Unspecified mood [affective] disorder (4) Dementia: Status: Acute Category: Medical Code(s): F03.90 - Unspecified dementia, unspecified severity, without behavioral disturbance, psychotic disturbance, mood disturbance, and anxiety (5) Finger fracture, left: Status: Acute Qualifiers: Encounter type: initial encounter Finger: ring finger Fracture alignment: nondisplaced Fracture type: closed Phalanx: proximal Qualified Code(s): S62.645A - Nondisplaced fracture of proximal phalanx of left ring finger, initial encounter for closed fracture Category: Medical Code(s): S62.609A - Fracture of unspecified phalanx of unspecified finger, initial encounter for closed fracture (6) Falls frequently: Status: Acute Category: Medical Code(s): R29.6 - Repeated falls Plan This is a 63-year-old male that resides at [facility] with ~5 months of ident ified increase in falls. Previous hospitalization at [facility] November 2023 identified chronic psychiatric disorder, dementia and ventriculomegaly on CT head. Condition stable, awaiting guardianship and placement. Problems addressed as follows: Parkinson's disease Dementia Frequent falls Chronic antipsychotic therapy Concerns for normal pressure hydrocephalus with previous neuroimaging identifying ventriculomegaly CT cervical, thoracic and lumbar spine with degenerative changes and no acute fractures PT working with patient daily, awaiting SNF placement, case management assisting with guardianship with APS. - Continue donepizil, memantine. - Will need neurology follow-up outpatient. #Right neck laceration, healing - Present on admission, I evaluated it further this evening and it is consistent with healing laceration. Inconsistent with a fall at this time. - Patient is unable to provide details given his dementia and memory impairment. Left fourth digit fracture Splint care; Orthopedic surgery consulted, dante taped 3rd and 4th fingers. This is a non-surgical healing process. Mood disorder History of schizophrenia Routine nursing interaction - Continue respiridone 4mg BID, seroquel 50mg qhs due to nighttime agitation. - Outpatient follow-up with psychiatry Seizure disorder Seizure precautions Divalproex ER therapy
[2024-05-02 04:00] VITALS: BP 99/57; PULSE 60; RESP 16; TEMP 36.5; O2SAT 96; BMI 23.9
--- NOTE | 2024-05-02 04:19 | PC.NURSE ---
Patient has been awake majority of the night. [facility], he told multiple nursing staff multiple times about some of his family history such as having two kids. One daughter named Yeni Garcia and one son named Tavo Lakhani. Tavo lives in [place]. Both children are from his first marriage. He told nursing staff he is from [place], [place].
[2024-05-02 08:00] VITALS: BP 102/59; PULSE 60; RESP 14; TEMP 36.9; O2SAT 96
[2024-05-02] MEDS: DIVALPROEX 250MG (EXTENDED-RELEASE) TABLET 500 MG PO ×2 (08:47→19:42)
[2024-05-02] MEDS: MEMANTINE 10MG TABLET 5 MG PO (08:48)
[2024-05-02] MEDS: BENZTROPINE 1MG TABLET 1 MG PO ×3 (08:48→19:42)
[2024-05-02] MEDS: risperiDONE 1MG TABLET 4 MG PO ×2 (08:48→19:43)
[2024-05-02] MEDS: DOCUSATE SODIUM 100 MG CAPSULE PO (08:48)
[2024-05-02 16:00] VITALS: BP 103/54; PULSE 72; RESP 14; TEMP 36.7; O2SAT 95
--- NOTE | 2024-05-02 16:39 | PC.NURSE ---
pt has been trying to get out of bed/chair numerous times this shift. pt has been alert to self and birthday. pt has enjoyed snacking this shift. pt has had 2 large BMs this shift. pt has had no complaints. pt has remained on room air. no new orders at this time.
[2024-05-02] MEDS: PRENATAL MULTIVITAMIN W/IRON 1 EACH PO (17:29)
[2024-05-02 19:38] VITALS: BP 113/54; PULSE 65; RESP 16; TEMP 36.6; O2SAT 98
[2024-05-02] MEDS: DONEPEZIL 10MG TAB 10 MG PO (19:42)
[2024-05-02] MEDS: PANTOPRAZOLE 40MG TABLET 40 MG PO (19:42)
[2024-05-02] MEDS: TRAZODONE 50MG TABLET 50 MG PO (19:42)
[2024-05-02] MEDS: ENOXAPARIN 40MG/0.4ML SYRINGE 40 MG SUBCUT (19:43)
[2024-05-02] MEDS: QUETIAPINE 100MG TABLET 50 MG PO (19:43)
--- NOTE | 2024-05-02 20:12 | EXP.PN ---
Subjective *Date: 05/02/24 *Time: 20:12 Interval history: Continues to be very pleasant, no complaints. Interacting with nursing staff well. Enjoyed [place] movies in his room. Exam Data for Last 24 hours Vital signs and Labs for Last 24 Hours: Temp Pulse Resp BP Pulse Ox O2 Del Method 97.9 F 65 16 113/54 L 98 Room Air 05/02/24 19:38 05/02/24 19:38 05/02/24 19:38 05/02/24 19:38 05/02/24 19:38 05/02/24 19:38 I & O for Last 24 hours: Intake & Output 04/29/24 04/30/24 05/01/24 05/02/24 23:59 23:59 23:59 23:59 Intake Total 1880 / 2130 1460 / 1460 600 / 600 1850 / 1850 Output Total 700 / 700 0 / 0 0 / 0 0 / 0 Balance 1180 / 1430 1460 / 1460 600 / 600 1850 / 1850 Weight 74.344 kg 74.48 kg 74.389 kg 75.75 kg Constitutional Constitutional: no acute distress *Routine HEENT Exam Head: Present normocephalic Eye: Present EOMI and PERRL ENT: Present mucous membranes moist *Routine Neck Exam Neck: Present supple; Absent lymphadenopathy Comments: Right neck healing laceration. *Routine Respiratory Exam Respiratory: Present CTA bilaterally *Routine Cardiovascular Exam Cardiovascular: Present RRR *Routine Abdominal Exam Abdominal: Present soft and normoactive bowel sounds; Absent tenderness *Routine Extremities Exam Extremities: Absent cyanosis, clubbing or edema *Routine Skin Exam Skin: Present warm; Absent rash *Routine Neurological Exam Neurological: Present alert Comments: Pleasant and can hold somewhat of a conversation, but often confused and unintelligible. Assessment and Plan *Assessment and plan (1) Fracture of proximal phalanx of left ring finger: Status: Acute Qualifiers: Encounter type: initial encounter Fracture type: closed Fracture alignment: nondisplaced Qualified Code(s): S62.645A - Nondisplaced fracture of proximal phalanx of left ring finger, initial encounter for closed fracture Category: Medical Code(s): S62.615A - Displaced fracture of proximal phalanx of left ring finger, initial encounter for closed fracture (2) Parkinson's disease (tremor, stiffness, slow motion, unstable posture): Status: Acute Category: Medical Code(s): G20.A1 - Parkinson's disease without dyskinesia, without mention of fluctuations (3) Mood disorder: Status: Acute Category: Medical Code(s): F39 - Unspecified mood [affective] disorder (4) Dementia: Status: Acute Category: Medical Code(s): F03.90 - Unspecified dementia, unspecified severity, without behavioral disturbance, psychotic disturbance, mood disturbance, and anxiety (5) Finger fracture, left: Status: Acute Qualifiers: Encounter type: initial encounter Finger: ring finger Fracture alignment: nondisplaced Fracture type: closed Phalanx: proximal Qualified Code(s): S62.645A - Nondisplaced fracture of proximal phalanx of left ring finger, initial encounter for closed fracture Category: Medical Code(s): S62.609A - Fracture of unspecified phalanx of unspecified finger, initial encounter for closed fracture (6) Falls frequently: Status: Acute Category: Medical Code(s): R29.6 - Repeated falls Plan This is a 63-year-old male that resides at [facility] with ~5 months of identified increase in falls. Previous hospitalization at [facility] November 2023 identified chronic psychiatric disorder, dementia and ventriculomegaly on CT head. Condition stable, awaiting guardianship and placement. Problems addressed as follows: #Parkinson's disease #Dementia #Frequent falls -Chronic antipsychotic therapy - Concerns for normal pressure hydrocephalus with previous neuroimaging identifying ventriculomegaly - CT cervical, thoracic and lumbar spine with degenerative changes and no acute fractures - PT working with patient daily, awaiting SNF placement, case management assisting with guardianship with APS. ? Patient did state however that he has 2 sons, APS has been notified. - Continue donepizil, memantine. - Will need neurology follow-up outpatient. #Right neck laceration, healing - Present on admission, I evaluated it further this evening and it is consistent with healing laceration. Inconsistent with a fall at this time. - Patient is unable to provide details given his dementia and memory impairment. #Left fourth digit fracture - Splint care; Orthopedic surgery consulted, dante taped 3rd and 4th fingers. This is a non-surgical healing process. #Mood disorder #History of schizophrenia - Routine nursing interaction - Continue respiridone 4mg BID, seroquel 50mg qhs due to nighttime agitation. - Outpatient follow-up with psychiatry #Seizure disorder - Seizure precautions - Divalproex ER therapy
[2024-05-03 04:00] VITALS: BMI 23.6
[2024-05-03 07:12] LABS: Albumin Level 2.8 g/dl (3.5-5.0); Chloride 105 mmol/L (98-107); Sodium 135 mmol/L (136-145)
[2024-05-03 07:13] LABS: Potassium 3.9 mmoL/L (3.5-5.1)
[2024-05-03 07:15] LABS: Alanine Aminotransferase 80 U/L (12-78); Anion Gap 4.9 mEq/L (5-15); Aspartate Amino Transferase 58 U/L (17-59); Blood Urea Nitrogen 17 mg/dl (9-20); Carbon Dioxide 29 mmol/L (22.0-30.0); Creatinine Clearance Estimated 81 mL/min (50-200); Estimated Glomerular Filt Rate 98 ml/min (>60); GFR (African American) 119 ML/MIN (>60); Globulin 2.8 g/dL (1.3-3.2); Total Protein,Serum 5.6 g/dl (6.3-8.2)
[2024-05-03 07:16] LABS: Alkaline Phosphatase 87 U/L (38-126); Bilirubin,Total 0.3 mg/dl (0.2-1.3); Calcium 8.5 mg/dl (8.4-10.2); Glucose 89 mg/dl (74-100); Magnesium 1.9 mg/dl (1.6-2.3)
[2024-05-03 07:39] LABS: White Blood Count 5.6 K/mm3 (4.8-10.8)
[2024-05-03 07:40] LABS: Basophils % 0.4 % (0.1-2.0); Eosinophils % 3.9 % (0.1-12.0); Hematocrit 34.1 % (42.0-52.0); Hemoglobin 11.4 g/dL (14.1-18.0); Lymphocytes % 45.4 % (10-50); Mean Corpuscular HGB Conc 33.4 g/dL (31.8-35.4); Mean Corpuscular Hemoglobin 36.1 pg (27.0-31.2); Mean Corpuscular Volume 107.9 fl (80-94); Mean Platelet Volume 10.9 fl (7.4-10.4); Monocytes % 12.4 % (1.7-9.3); Neutrophils % 37.4 % (37.0-80.0); Platelet Count 154 K/mm3 (142-424); Red Blood Count 3.16 M/mm3 (4.60-6.20); Red Cell Distribution Width 13.4 % (11.5-17.5)
[2024-05-03 07:41] LABS: Eosinophils # 0.2 K/mm3 (0.0-0.4); Lymphocytes # 2.5 K/mm3 (0.7-4.5); Monocytes # 0.7 K/mm3 (0.1-1.0); Neutrophils # 2.1 K/mm3 (1.8-7.8)
[2024-05-03] MEDS: BENZTROPINE 1MG TABLET 1 MG PO (08:12)
[2024-05-03] MEDS: DOCUSATE SODIUM 100 MG CAPSULE PO (08:12)
[2024-05-03] MEDS: DIVALPROEX 250MG (EXTENDED-RELEASE) TABLET 500 MG PO (08:12)
[2024-05-03] MEDS: risperiDONE 1MG TABLET 4 MG PO (08:12)
[2024-05-03] MEDS: MEMANTINE 10MG TABLET 5 MG PO (08:14)
[2024-05-03 12:33] VITALS: BP 104/55; PULSE 47; RESP 16; TEMP 36.6; O2SAT 95
--- NOTE | 2024-05-03 13:03 | CARE MANAGER ---
Patient needs a walker and has [employer] Medicare HMO which requires the use of [facility]. Sent information to [email or web address].
--- NOTE | 2024-05-03 13:12 | P.DS_ITS ---
General Admission date:: 04/17/24 Discharge date: 05/03/24 HPI HPI HPI: This is a 63-year-old male that presents to [facility] emergency department from his residential facility [facility] [address] in [facility]. History is acquired from the ED provider and electronic medical record. His past medical history is significant for psychiatric disorder on chronic antipsychotic therapy with presenting ataxia and frequent falls. He has a chronic diagnoses of dementia with previous hospitalization in November 2023 identifying the need for geriatric psychiatry and neurology evaluations. He has had several ED evaluations since November for tremors and falls. Previous CT head imaging has identified ventriculomegaly. He suffered a fall and had swelling of the left hand x-rays revealed fracture of the proximal phalanx ring finger. Orthopedics consulted regarding treatment options for this particular fracture. Hospital Course Hospital Course Hospital Course: This is a 63-year-old male that resides at [facility] [address] with ~5 months of identified increase in falls. Previous hospitalization at [facility] November 2023 identified chronic psychiatric disorder, dementia and ventriculomegaly on CT head. Patient had a fall leading to his admission. Did well during admission with therapy daily. Was awaiting placement for rehab but showed significant clinical improvement and improved back to baseline functionality during prolonged admission. Admission was extended due to need for guardianship. APS currently working on guardianship. Given clinical stability however will discharge back to personal fdc and allow APS to continue to work on guardianship as an outpatient. Problems addressed as follows: Parkinson's disease Dementia Frequent falls Chronic antipsychotic therapy per personal-fdc regulations. Concerns for normal pressure hydrocephalus with previous neuroimaging identifying ventriculomegaly. CT cervical, thoracic and lumbar spine with degenerative changes and no acute fractures. Working with patient daily. Initially recommended SNF placement. Patient improved however during admission and was independently mobile. Meeting mobility requirements to return back to his personal fdc. - Continue donepizil, memantine. - Will need neurology follow-up outpatient. #Right neck laceration, healing - Present on admission, inconsistent with fall. Healing during admission. No further management needed at discharge Left fourth digit fracture Splint care; Orthopedic surgery consulted, dante taped 3rd and 4th fingers. This is a non-surgical healing process. Mood disorder History of schizophrenia Routine nursing interaction during admission. Overall did well. Sided since September to his based on treatment regimen during admission. Will continue benztropine 1 mg 3 times a day, Seroquel 50 Tiki and late, Risperdal 4 mg twice daily, and trazodone 50 mg nightly. Discontinued Haldol. Needs follow-up as an outpatient from psychiatry. Seizure disorder No seizures during admission. Continue home divalproex 500 mg twice daily Total time spent on discharge 32 minutes in counseling, documentation, chart review, and direct care with patient. Exam Data for Last 24 hours Vital signs and Labs for Last 24 Hours: Temp Pulse Resp BP Pulse Ox O2 Del Method 97.9 F 47 L 16 104/55 L 95 Room Air 05/03/24 12:33 05/03/24 12:33 05/03/24 12:33 05/03/24 12:33 05/03/24 12:33 05/03/24 12:33 Laboratory Results - last 24 hr 05/03/24 06:15: WBC 5.6, RBC 3.16 L, Hgb 11.4 L, Hct 34.1 L, MCV 107.9 H, MCH 36.1 H, MCHC 33.4, RDW 13.4, Plt Count 154, MPV 10.9 H, Neut % (Auto) 37.4, Lymph % (Auto) 45.4, [place] % (Auto) 12.4 H, Eos % (Auto) 3.9, Baso % (Auto) 0.4, Neut # (Auto) 2.1, Lymph # (Auto) 2.5, [place] # (Auto) 0.7, Eos # (Auto) 0.2, Baso # (Auto) 0.0, Sodium 135 L, Potassium 3.9, Chloride 105, Carbon Dioxide 29, Anion Gap 4.9 L, BUN 17 D, Creatinine 0.80, Estimated Creat Clear 81, Estimated GFR 98, Est GFR ( Amer) 119, Glucose 89, Calcium 8.5, Magnesium 1.9, Total Bilirubin 0.3, AST 58 D, ALT 80 H, Alkaline Phosphatase 87, Total Protein 5.6 L, Albumin 2.8 L, Globulin 2.8, Albumin/Globulin Ratio 1.0 L I & O for Last 24 hours: Intake & Output 04/30/24 05/01/24 05/02/24 05/03/24 23:59 23:59 23:59 23:59 Intake Total 1460 / 1460 600 / 600 1850 / 1850 Output Total 0 / 0 0 / 0 0 / 0 500 / 500 Balance 1460 / 1460 600 / 600 1850 / 1850 -500 / -500 Weight 74.48 kg 74.389 kg 75.75 kg 74.843 kg Constitutional Constitutional: no acute distress, thin and chronically ill appearing *Routine HEENT Exam Head: Present normocephalic and atraumatic Eye: Present EOMI and PERRL ENT: Present mucous membranes moist *Routine Neck Exam Neck: Present supple; Absent lymphadenopathy *Routine Respiratory Exam Respiratory: Present CTA bilaterally; Absent rhonchi, wheezes or crackles *Routine Cardiovascular Exam Cardiovascular: Present RRR *Routine Abdominal Exam Abdominal: Present soft and normoactive bowel sounds; Absent tenderness, distended, rebound or guarding *Routine Rectal Exam Patient deferred: visual exam *Routine Exam Patient deferred: penile exam *Routine Extremities Exam Extremities: Present full ROM; Absent cyanosis, clubbing or edema *Routine Skin Exam Skin: Present intact and warm; Absent cyanosis, erythema or rash *Routine Neurological Exam Neurological: Present alert and moving all extremities; Absent altered mental st atus Comments: Patient oriented to self with name and date of . Knows he is in [facility] at the hospital. Shuffling gait but doing well with walker and independently. Given improve mobility, independently mobile and stable for discharge back to personal fdc Routine Psychiatric Exam Psychiatric: Present cooperative Comments: Flat affect Results Data Completed and Pending Labs on day of discharge: Labs from last 24 hours 05/03/24 06:15 WBC 5.6 RBC 3.16 L Hgb 11.4 L Hct 34.1 L MCV 107.9 H MCH 36.1 H MCHC 33.4 RDW 13.4 Plt Count 154 MPV 10.9 H Neut % (Auto) 37.4 Lymph % (Auto) 45.4 [place] % (Auto) 12.4 H Eos % (Auto) 3.9 Baso % (Auto) 0.4 Neut # (Auto) 2.1 Lymph # (Auto) 2.5 [place] # (Auto) 0.7 Eos # (Auto) 0.2 Baso # (Auto) 0.0 Sodium 135 L Potassium 3.9 Chloride 105 Carbon Dioxide 29 Anion Gap 4.9 L BUN 17 D Creatinine 0.80 Estimated Creat Clear 81 Estimated GFR 98 Est GFR ( Amer) 119 Glucose 89 Calcium 8.5 Magnesium 1.9 Total Bilirubin 0.3 AST 58 D ALT 80 H Alkaline Phosphatase 87 Total Protein 5.6 L Albumin 2.8 L Globulin 2.8 Albumin/Globulin Ratio 1.0 L DS: Diagnosis Discharge Diagnosis (1) Fracture of proximal phalanx of left ring finger: Status: Acute Code(s): S62.615A - Displaced fracture of proximal phalanx of left ring finger, initial encounter for closed fracture Qualifiers: Encounter type: initial encounter Fracture alignment: nondisplaced Fracture type: closed Qualified Code(s): S62.645A - Nondisplaced fracture of proximal phalanx of left ring finger, initial encounter for closed fracture (2) Parkinson's disease (tremor, stiffness, slow motion, unstable posture): Status: Acute Code(s): G20.A1 - Parkinson's disease without dyskinesia, without mention of fluctuations (3) Mood disorder: Status: Acute Code(s): F39 - Unspecified mood [affective] disorder (4) Dementia: Status: Acute Code(s): F03.90 - Unspecified dementia, unspecified severity, without behavioral disturbance, psychotic disturbance, mood disturbance, and anxiety (5) Finger fracture, left: Status: Acute Code(s): S62.609A - Fracture of unspecified phalanx of unspecified finger, initial encounter for closed fracture Qualifiers: Encounter type: initial encounter Finger: ring finger Fracture alignment: nondisplaced Fracture type: closed Phalanx: proximal Qualified Code(s): S62.645A - Nondisplaced fracture of proximal phalanx of left ring finger, initial encounter for closed fracture (6) Falls frequently: Status: Acute Code(s): R29.6 - Repeated falls Meds Home Medications and Allergies Home Medications ?Medication ?Instructions ?Recorded ?Confirmed ?Type divalproex 500 mg tablet,extended 500 mg PO BID 02/07/24 04/18/24 History release 24 hr pantoprazole 40 mg tablet,delayed 40 mg PO DAILY 02/07/24 04/18/24 History release benztropine 1 mg tablet 1 mg PO TID 04/18/24 04/18/24 History cholecalciferol (vitamin D3) 125 125 mcg PO WEEKLY 04/18/24 04/18/24 History mcg (5,000 unit) tablet (Vitamin D3) cyanocobalamin (vitamin B-12) 100 100 mcg PO DAILY 04/18/24 04/18/24 History mcg tablet donepezil 10 mg tablet 10 mg PO HS 04/18/24 04/18/24 History hydroxyzine pamoate 50 mg capsule 50 mg PO HS 04/18/24 04/18/24 History ibuprofen 400 mg tablet 400 mg PO QIDP PRN Pain (Scale 04/18/24 04/18/24 History Score 1-6) melatonin 3 mg tablet 3 mg PO HS 04/18/24 04/18/24 History memantine 5 mg tablet 5 mg PO AM 04/18/24 04/18/24 History quetiapine 50 mg tablet 50 mg PO HS 04/18/24 04/18/24 History risperidone 4 mg tablet 4 mg PO BID 04/18/24 04/18/24 History sennosides 8.6 mg-docusate sodium 1 tab PO BID 04/18/24 04/18/24 History 50 mg tablet (Senna with Docusate Sodium) thiamine HCl (vitamin B1) 100 mg 100 mg PO DAILY 04/18/24 04/18/24 History tablet trazodone 50 mg tablet 50 mg PO HS 04/18/24 04/18/24 History New Prescriptions to Start Prescriptions: Allergies Allergy/AdvReac Type Severity Reaction Status Date / Time No Known Allergies Allergy Verified 11/29/23 18:45 Discharge Plan Disposition Patient Disposition: Home, Self-Care Condition: Fair Follow up Plan Follow up with: Karl Lynch APRN [Primary Care Provider] - Enter time for follow up Prescriptions/Medication Reconciliation: Continued trazodone 50 mg tablet 50 mg PO HS donepezil 10 mg tablet 10 mg PO HS quetiapine 50 mg tablet 50 mg PO HS memantine 5 mg tablet 5 mg PO AM cyanocobalamin (vitamin B-12) 100 mcg Tablet 100 mcg PO DAILY risperidone 4 mg tablet 4 mg PO BID sennosides-docusate sodium [Senna with Docusate Sodium] 8.6-50 mg Tablet 1 tab PO BID thiamine HCl (vitamin B1) 100 mg Tablet 100 mg PO DAILY hydroxyzine pamoate 50 mg capsule 50 mg PO HS melatonin 3 mg Tablet 3 mg PO HS ibuprofen 400 mg tablet 400 mg PO QIDP PRN (Reason: Pain (Scale Score 1-6)) benztropine 1 mg tablet 1 mg PO TID cholecalciferol (vitamin D3) [Vitamin D3] 125 mcg (5,000 unit) Tablet 125 mcg PO WEEKLY Rx Instructions: TAKE 1 TABLET BY MOUTH ON FRIDAYS pantoprazole 40 mg tablet,delayed release (DR/EC) 40 mg PO DAILY divalproex 500 mg tablet extended release 24 hr 500 mg PO BID Discontinued haloperidol 5 mg tablet 5 mg PO BID Problem Reconciliation Problems Reviewed?: Yes Patient Discharge Instructions ACTIVITY: Continue current activity DIET: continue same diet Patient Instructions: DI for Finger Fracture, DI for Parkinson Disease, How to Prevent Falls, Normal Pressure Hydrocephalus Print Language: Chinese Providers Primary Care Provider: Karl Lynch Admit Provider: Spencer Kelly Attending Provider: Spencer Kelly
--- NOTE | 2024-05-05 10:02 | SW/DCPLANNER ---
Called patient and spoke with medical front desk coordinator at [facility]. She stated patient is good and that they have no questions or concerns for the patient. Peggy MANUEL House Father
== END 2024-05-03 13:46 | disposition home or self-care (01) ==
LOC: ER 20:41 → 2ND 20:46
PROVIDERS: Family Medicine; Internal Medicine Adolescent Medicine; Physician Assistant; Admitting Provider Student in an Organized Health Care Education/Training Program; Emergency Provider Emergency Medicine; PCP Nurse Practitioner Acute Care; Visit Provider Student in an Organized Health Care Education/Training Program
DX: G20.A1 Parkinson's disease without dyskinesia, without mention of fluctuations (principal); F02.83 Dementia in other diseases classified elsewhere, unspecified severity, with mood disturbance; G91.2 (Idiopathic) normal pressure hydrocephalus; R29.6 Repeated falls; W01.0XXA Fall on same level from slipping, tripping and stumbling without subsequent striking against object, initial encounter; S62.645A Nondisplaced fracture of proximal phalanx of left ring finger, initial encounter for closed fracture; F17.210 Nicotine dependence, cigarettes, uncomplicated; Z74.1 Need for assistance with personal care; Z91.81 History of falling; Y92.099 Unspecified place in other non-institutional residence as the place of occurrence of the external cause; G40.909 Epilepsy, unspecified, not intractable, without status epilepticus
CPT/HCPCS: 12002; 36415; 70450; 71045; 72125; 72128; 72131; 72170; 73090; 73130; 80048; 80053; 80307; 81001; 82140; 82607; 82746; 82962; 83735; 84439; 84443; 85007; 85014; 85018; 85025; 85048; 85049; 87086; 93005; 97110; 97116; 97162; 97165; 97530; 97535; 99285; G0378; J0696; J1200; J1650; J2060; J3420; J3475